=== PATIENT | male | born 1945 | race Two or more races ===

== ENCOUNTER 2024-07-04 02:40 | Emergency (ER) | payer OTHER, MEDICAID, SELFPAY ==
[2024-07-04 02:58] VITALS: BP 156/94; PULSE 116; RESP 17; TEMP 36.5; O2SAT 98
[2024-07-04 03:51] VITALS: PULSE 124; RESP 26; O2SAT 99; BMI 23.1
--- NOTE | 2024-07-04 03:54 | XR_ITS ---
Examination: AP chest single view TECHNIQUE: AP portable upright chest single view Exam date and time: July 04, 2024 0401 hours Comparison August 31, 2023 INDICATIONS: Shortness of breath today. FINDINGS: Moderate CHF Mild enlargement cardiac contour Prominent vascular congestion with perihilar basilar edema Cardiac leads satisfactory position Prominent osteopenia IMPRESSION: Moderate CHF
--- NOTE | 2024-07-04 03:54 | EKG_ITS ---
[facility] Test Date: 2024-07-04 Pat Name: JOHN COOPER Department: Room: - Gender: Male [employer] Presenter: : 1945 Requested By: Fransisco Rueda Order Number: [id number] Reading MD: Fransisco Rueda Measurements Intervals [place] Rate: 107 P: MN: QRS: 41 QRSD: 132 T: 79 QT: 361 QTc: 482 Interpretive Statements ATRIAL FLUTTER/TACHYCARDIA WITH RAPID VENTRICULAR RESPONSE WITH ABERRANT CONDUCTION OR VENTRICULAR PREMATURE COMPLEXES INTRAVENTRICULAR CONDUCTION DELAY [130+ ms QRS DURATION] Compared to ECG 10/19/2023 14:48:02 Ventricular premature complex(es) now present Aberrant conduction of supraventricular beat(s) now present Intraventricular conduction delay now present Sinus rhythm no longer present Left ventricular hypertrophy no longer present /store/S0/[id number]/ecg/[id number].pdf
[2024-07-04 03:58] VITALS: BP 135/92; PULSE 110; RESP 24; TEMP 36.9; O2SAT 99
--- NOTE | 2024-07-04 04:01 | PD.EDSOB ---
ED SOB =RME/HPI General Chief Complaint: Shortness of Breath/Dyspnea Stated Complaint: SOB Time Seen by Provider: 07/04/24 03:53 Arrival date/time: 07/04/24 02:40 RME / HPI RME / HPI Narrative: Dr. Rueda's Main ED Evaluation: Related Data Home Medications ?Medication ?Instructions ?Recorded ?Confirmed metformin 500 mg tablet 1,000 mg PO BID 01/22/20 10/22/23 aspirin 81 mg capsule 81 mg PO DAILY 10/22/23 10/22/23 atorvastatin 40 mg tablet 40 mg PO QPM 10/22/23 10/22/23 carvedilol 3.125 mg tablet 3.125 mg PO BID 10/22/23 10/22/23 dapagliflozin propanediol 10 mg 10 mg PO DAILY 10/22/23 10/22/23 tablet dapagliflozin propanediol 10 mg 10 mg PO QAM 10/22/23 10/22/23 tablet (Farxiga) empagliflozin 25 mg tablet 25 mg PO QAM 10/22/23 10/22/23 (Jardiance) ferrous sulfate 325 mg (65 mg 325 mg PO QDAY 10/22/23 10/22/23 iron) tablet (FeroSul) insulin glargine 100 unit/mL (3 30 unit subcut QPM 10/22/23 10/22/23 mL) subcutaneous pen (Basaglar KwikPen U-100 Insulin) sitagliptin phosphate 25 mg tablet 25 mg PO DAILY 10/22/23 10/22/23 (Januvia) spironolactone 25 mg tablet 12.5 mg PO DAILY 10/22/23 10/22/23 Allergies Allergy/AdvReac Type Severity Reaction Status Date / Time No Known Allergies Allergy Verified 07/04/24 03:58 Course Orders Category Date Time Status EKG (ED ONLY) *Do not use* NOW Care 07/04/24 03:54 Active Insert IV NOW Care 07/04/24 03:54 Active EKG (ED Only) Stat Exams 07/04/24 03:54 Ordered XR chest 1V portable Stat Exams 07/04/24 03:54 Ordered B-Type Natriuretic Peptide Stat Lab 07/04/24 03:54 Ordered Blood Culture (Lab) Stat Lab 07/04/24 03:54 Ordered CBC Stat Lab 07/04/24 03:54 Ordered Comprehensive Metabolic Panel Stat Lab 07/04/24 03:54 Ordered Creatine Kinase Stat Lab 07/04/24 03:54 Ordered Lactate (Lactic Acid) Stat Lab 07/04/24 03:54 Ordered PT [Prothrombin Time with INR] Stat Lab 07/04/24 03:55 Ordered Procalcitonin Stat Lab 07/04/24 03:54 Ordered Troponin I Stat Lab 07/04/24 03:54 Ordered Urinalysis Stat Lab 07/04/24 03:54 Ordered Urine Culture Stat Lab 07/04/24 03:54 Ordered Vital Signs Vital signs: Vital Signs Temperature 97.7 F 07/04/24 02:58 Pulse Rate 116 H 07/04/24 02:58 Respiratory Rate 17 07/04/24 02:58 Blood Pressure 156/94 H 07/04/24 02:58 Pulse Oximetry (%) 98 07/04/24 02:58 Oxygen Delivery Method Nasal Cannula 07/04/24 02:58 Oxygen Flow Rate 6 07/04/24 02:58 Shortness of Breath / Dyspnea MDM Narrative MDM Narrative:: Scribe Attestation: 07/04/24 Brittany Roland am scribing for and in the presence of Dr. Rueda. Provider Notation: Although this document has been carefully reviewed, there may still be some phonetic and other typographical errors. These errors are purely grammatical due to imperfections in the software program and should not be construed in any way to compromise the substance of the patient's medical care during this visit. Discharge Plan Prescriptions/Referrals Prescriptions/Med Rec: No Action metformin 500 mg Tablet 1,000 mg PO BID Hold Instructions: Resume on 10/25/23. No se mikee esta medicina salena Ramírez 10/25/2023. Rx Instructions: with meals atorvastatin 40 mg Tablet 40 mg PO QPM spironolactone 25 mg Tablet 12.5 mg PO DAILY carvedilol 3.125 mg Tablet 3.125 mg PO BID Rx Instructions: with food ferrous sulfate [FeroSul] 325 mg (65 mg iron) Tablet 325 mg PO QDAY Januvia 25 mg Tablet 25 mg PO DAILY insulin glargine [Basaglar KwikPen U-100 Insulin] 100 unit/mL (3 mL) Insulin Pen 30 unit SUBCUT QPM dapagliflozin propanediol 10 mg Tablet 10 mg PO DAILY dapagliflozin propanediol [Farxiga] 10 mg Tablet 10 mg PO QAM Jardiance 25 mg Tablet 25 mg PO QAM aspirin 81 mg Capsule 81 mg PO DAILY Referrals: Dionne Shah MD [Primary Care Provider] - In 1 week Patient/Caregiver Discharge Instructions Print Language: Pakistani
[2024-07-04 04:18] LABS: Lactate (Lactic Acid) 0.9 mMol/L (0.4-2.0)
[2024-07-04 04:20] LABS: Collection Type, Urine Clean Catch
[2024-07-04 04:22] LABS: Basophils % (Auto) 0 % (0-2.5); Eosinophils # (Auto) 0.2 Thou/mm3 (0.0-0.5); Eosinophils % (Auto) 2 % (0-10); Hemoglobin 10.7 g/dL (13.5-16.0); Immature Granulocytes % (Auto) 0 % (0-0); Immature Granulocytes Auto 0.05 Thou/mm3 (0.00-0.00); Lymphocytes # (Auto) 1.2 Thou/mm3 (1.0-4.8); Lymphocytes % (Auto) 9 % (10-50); Mean Corpuscular HGB Conc 34.5 g/dl (31.0-37.0); Mean Corpuscular Hemoglobin 31.8 pg (25.0-35.0); Mean Corpuscular Volume 92 fL (80-100); Monocytes % (Auto) 8 % (0-12); Neutrophils # (Auto) 10.2 Thou/mm3 (1.8-7.7); Neutrophils % (Auto) 81 % (37-80); Nucleated Red Blood Cell % 0 /100 WBC (0); Platelet Count 214 Thou/mm3 (140-440); RDW Standard Deviation 46.2 fL (35.1-43.9); Red Blood Count 3.36 Miln/mm3 (4.50-5.90); White Blood Count 12.6 Thou/mm3 (3.8-10.6)
[2024-07-04 04:26] LABS: Bilirubin,Urine Negative (Negative); Blood,Urine Negative (Negative); Clarity,Urine Clear (Clear/Hazy); Color,Urine Yellow (Lt Yel-Yel); Glucose, Urine 1+ (Negative); Hyaline Casts,Urine < 1 /hpf (0-1); Ketones,Urine Trace (Negative); Leukocyte Esterase,Urine Negative (Negative); Nitrite,Urine Negative (Negative); PH,Urine 5.5 (5.0-7.0); Protein,Urine Negative (Neg - Trace); RBC,Urine 1 /hpf (0-3); Squamous Epithelial Cell,Urine 2 /hpf (0-5); Urobilinogen,Urine Negative mg/dL (0.0-1.0); WBC,Urine 1 /hpf (0-5)
[2024-07-04 04:40] LABS: INR 1.1 (0.9-1.3); Prothrombin Time 12.3 Seconds (9.0-12.2)
[2024-07-04 04:53] LABS: Alanine Aminotransferase 28 U/L (10-49); Albumin, Serum 4.3 gm/dL (3.4-4.8); Albumin/Globulin Ratio 1.3 (1.2-2.2); Alkaline Phosphatase 113 U/L (46-116); Anion Gap 5 (7-16); Aspartate Amino Transferase 34 U/L (0-34); BUN/Creatinine Ratio 24 Ratio (12-20); Bilirubin,Total 0.5 mg/dL (0.3-1.2); Blood Urea Nitrogen 19 mg/dL (9-23); Calcium 9.3 mg/dL (8.3-10.6); Calcium (Corrected) 9.3 mg/dL (8.5-10.1); Carbon Dioxide 26.6 mMol/L (20.0-31.0); Chloride 100 mMol/L (98-107); Creatine Kinase 295 U/L (34-171); Creatinine (Component) 0.8 mg/dL (0.6-1.3); Estimated Creatinine Clearance 63.7 mL/min (>60); Globulin 3.4 gm/dL (2.3-3.5); Glucose 180 mg/dL (74-106); Osmolality,Calculated 271 (275-295); Potassium 3.8 mMol/L (3.4-5.1); Procalcitonin < 0.04 ng/ml (0.0-0.49); Sodium 132 mMol/L (136-145); Total Protein 7.7 gm/dL (5.7-8.2); Troponin I 0.021 ng/mL (0.0-0.045); eGFR > 60 See Note
--- NOTE | 2024-07-04 05:14 | PD.EDRME ---
Rapid Medical Screening Exam RME Arrival date/time: 07/04/24 02:40 Chief Complaint: Shortness of Breath/Dyspnea Time Seen by Provider: 07/04/24 03:53 Vital signs: Vital Signs Temperature 97.7 F 07/04/24 02:58 Pulse Rate 116 H 07/04/24 02:58 Respiratory Rate 17 07/04/24 02:58 Blood Pressure 156/94 H 07/04/24 02:58 Pulse Oximetry (%) 98 07/04/24 02:58 Oxygen Delivery Method Nasal Cannula 07/04/24 02:58 Oxygen Flow Rate 6 07/04/24 02:58 RME Narrative: 79yo male BIBA from home presents to the ED for a chief complaint of shortness of breath. Upon arrival, patient is tachycardic. EMS endorses associated sweating. Orders are placed.
[2024-07-04 05:19] LABS: B-Type Natriuretic Peptide 696 pg/mL (0-100)
[2024-07-04 05:22] VITALS: BP 135/92; PULSE 101; RESP 21; O2SAT 96
--- NOTE | 2024-07-04 05:56 | PC.NURSE ---
at the bedside at this time.
--- NOTE | 2024-07-04 05:58 | PD.EDSOB ---
ED SOB =RME/HPI General Chief Complaint: Shortness of Breath/Dyspnea Stated Complaint: SOB Time Seen by Provider: 07/04/24 03:53 Arrival date/time: 07/04/24 02:40 Limitations: no limitations RME / HPI RME / HPI Narrative: 79yo male VALERIA from home presents to the ED for a chief complaint of shortness of breath. Upon arrival, patient is tachycardic. EMS endorses associated sweating. Orders are placed. Patient states he called 911 due to LUQ abdominal pain onset [address] [facility] MAIN ED EVALUATION: 79 year old male with history of HFrEF 20% 08/2023, CAD, s/p placement of permanent pac[place] [address] Mathur, hypertension, diabetes presents to the ED brought in by ambulance for complaint of abdominal pain beginning at 10:00pm last night and worsening at 03:00 this morning. Described as aching in sensation that is located most to the left upper quadrant, rating as moderate. Additionally reports shortness of breath and cough beginning 2 days ago. Denies fevers, chills, chest pain, vomiting, diarrhea, or urinary symptoms. Related Data Home Medications ?Medication ?Instructions ?Recorded ?Confirmed metformin 500 mg tablet 1,000 mg PO BID 01/22/20 10/22/23 aspirin 81 mg capsule 81 mg PO DAILY 10/22/23 10/22/23 atorvastatin 40 mg tablet 40 mg PO QPM 10/22/23 10/22/23 carvedilol 3.125 mg tablet 3.125 mg PO BID 10/22/23 10/22/23 dapagliflozin propanediol 10 mg 10 mg PO DAILY 10/22/23 10/22/23 tablet dapagliflozin propanediol 10 mg 10 mg PO QAM 10/22/23 10/22/23 tablet (Farxiga) empagliflozin 25 mg tablet 25 mg PO QAM 10/22/23 10/22/23 (Jardiance) ferrous sulfate 325 mg (65 mg 325 mg PO QDAY 10/22/23 10/22/23 iron) tablet (FeroSul) insulin glargine 100 unit/mL (3 30 unit subcut QPM 10/22/23 10/22/23 mL) subcutaneous pen (Basaglar KwikPen U-100 Insulin) sitagliptin phosphate 25 mg tablet 25 mg PO DAILY 10/22/23 10/22/23 (Augelieshefali) spironolactone 25 mg tablet 12.5 mg PO DAILY 10/22/23 10/22/23 Previous Rx's ?Medication ?Instructions ?Recorded tramadol 50 mg tablet 50 mg PO BID PRN pain #7 tabs 07/04/24 Allergies Allergy/AdvReac Type Severity Reaction Status Date / Time No Known Allergies Allergy Verified 07/04/24 03:58 Review of Systems Review of Systems Systems Reviewed: All systems reviewed, normal except as documented Past Medical History Past Medical History CARDIAC: Positive Cardiac Disorders, Congestive Heart Failure and Hypertension ENDOCRINE: Positive Endocrine Disorders and Diabetes Mellitus Type 2 Family History FAMILY HISTORY: Positive Family Cardiac Disorders Surgical History SURGICAL: Negative Vasectomy Social History SMOKING STATUS: Never smoker 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 ED Exam General Limitations: Present no limitations General appearance: Present alert and other (Mild distress) Head Head exam: Present atraumatic, normocephalic and normal inspection Eye Eye exam: Present normal appearance, PERRL and EOMI ENT ENT exam: Present normal exam, normal oropharynx and mucous membranes moist Neck Neck exam: Present normal inspection, full ROM and trachea midline Chest Chest inspection: Present normal inspection and symmetric chest wall rise Respiratory Respiratory exam: Present normal lung sounds bilaterally Cardiovascular Cardiovascular exam: Present regular rate, normal rhythm and normal heart sounds Abdominal Exam Abdominal exam: Present soft, tenderness (Left upper quadrant tenderness on palpation) and normal bowel sounds; Absent distention Extremities Exam Extremities exam: Present normal inspection and full ROM Back Exam Back exam: Present normal inspection and full ROM Neurological Exam Neurological exam: Present alert, oriented X3 and CN II-XII intact Psychiatric Psychiatric exam: Present normal affect and normal mood Skin Skin exam: Present warm, dry, intact and normal color Course Course Course Narrative: chest xray ordered to help determine etiology of shortness of breath. Quality Measures none Orders Category Date Time Status CT Screening NOW Care 07/04/24 07:06 Active EKG (ED ONLY) *Do not use* NOW Care 07/04/24 03:54 Completed Insert IV NOW Care 07/04/24 03:[address] abdomen pelvis w con Stat Exams 07/04/24 07:06 Completed EKG (ED Only) Stat Exams 07/04/24 03:54 Draft XR chest 1V portable Stat Exams 07/04/24 03:54 Taken B-Type Natriuretic Peptide Stat Lab 07/04/24 04:05 Completed Blood Culture (Lab) Stat Lab 07/04/24 04:30 Received CBC Stat Lab 07/04/24 04:05 Completed Comprehensive Metabolic Panel Stat Lab 07/04/24 04:05 Completed Creatine Kinase Stat Lab 07/04/24 04:05 Completed Lactate (Lactic Acid) Stat Lab 07/04/24 04:05 Completed PT [Prothrombin Time with INR] Stat Lab 07/04/24 04:05 Completed Procalcitonin Stat Lab 07/04/24 04:05 Completed Troponin I Stat Lab 07/04/24 04:05 Completed Urinalysis Stat Lab 07/04/24 04:14 Completed Urine Culture Stat Lab 07/04/24 04:14 Received Reevaluation(s) Reevaluation #1: Patient remains clinically stable throughout the emergency department visit. We reviewed all the results, analysis, and treatment plans. Patient is amenable to discharge. Strict return precautions were outlined. Patient was discharged in stable condition. Time: 09:45 Vital Signs Vital signs: Vital Signs Temperature 97.7 F 07/04/24 02:58 Pulse Rate 116 H 07/04/24 02:58 Respiratory Rate 17 07/04/24 02:58 Blood Pressure 156/94 H 07/04/24 02:58 Pulse Oximetry (%) 98 07/04/24 02:58 Oxygen Delivery Method Nasal Cannula 07/04/24 02:58 Oxygen Flow Rate 6 07/04/24 02:58 Pulse ox is 98% on 6L nasal cannula which is adequate. Shortness of Breath / Dyspnea MDM Narrative MDM Narrative:: Kristien France am scribing for and in the presence of Dr. Mclaughlin. Patient data External records reviewed:: [facility] previous records (I reviewed H&P from 08/31/2023 through 09/03/2023 ) and EMS form Clinical information provided by:: patient and EMS Social determinants that could affect healthcare access:: none Patient has the following chronic illnesses:: CHF, CAD, s/p placement of permanent pacemaker [place] [address] Mathur, hypertension, type 2 diabetes How is presenting disease/condition affected by chronic disease/condition?: exacerbated by Evaluation data The following diagnostics were reviewed and interpreted by me:: lab results, radiology exam(s) and EKG tracing(s) (AFIB with controlled ventricular rate and occasional PVC's ) Lab and/or radiology exams considered but not ordered:: None Interpretation Summary: Ordering Physician: Fernando Mclaughlin MD Date of Service: 07/04/24 Procedure(s): CT abdomen pelvis w con Accession Number(s): [id number] cc: Fernando Mclaughlin MD; Josep Girard MD; Dionne Shah MD~ Examination: CT abdomen with intravenous contrast CT pelvis with intravenous contrast 2-D coronal reconstructions 2-D sagittal reconstructions Date and time of exam:July 04, 2024 at 0747 hours INDICATIONS: Onset left lower abdominal pain beginning last night. CTDI: vol (mGy) 6.78 DLP: (mGycm) 317 Technique: Multiple axial sections of the abdomen and pelvis have been obtained. 64 slice high-resolution scanner used. 3 mm axial sections have been obtained, post intravenous injection 60 cc [id number] 2-D sagittal, coronal reconstructions obtained. Low dose protocols were performed. One or more of the following dose reduction techniques were used; automated exposure control, adjustment of the mA and/or KV according to patient size, use of iterative reconstruction technique. Findings: Small pleural effusions Mild atelectasis at the lung bases Liver is irregular in contour with fatty infiltration No gallstones No pancreatic mass Spleen is not enlarged No adrenal mass Lateral left renal cyst 5.4 cm No hydronephrosis Aortic calcification no aneurysmal dilatation 12 mm fat-containing umbilical hernia No bowel obstruction No pericecal inflammatory change Colonic diverticulosis, no diverticulitis Urinary bladder intact Transverse prostate dimension 6.3 cm, suspicious for 14 mm left prostate nodule, axial image 181 Prominent osteopenia, grade 1 anterolisthesis L4 on L5 Advanced degenerative disc disease L5-S1 IMPRESSION: Primary hepatocellular disease versus cirrhosis Normal appendix No bowel obstruction Colonic diverticulosis, no diverticulitis Significant prostatomegaly, suspicious for 14 mm left prostate nodule, consider correlation with PSA and follow-up transrectal prostate sonography Dictated By: Josep Girard MD Signed By: <Electronically signed by Josep Girard MD in OV> 07/04/24 0920 Medications / Prescriptions Medications or Prescriptions considered but not ordered:: None Medication administrations:: See above Consultations Consultation(s) initiated? (list below): No Diagnosis Shortness of Breath Differential Diagnosis: acute exacerbation of chronic obstructive airways disease, congestive heart failure, community acquired pneumonia and other (Viral illness, bronchitis) Most likely diagnosis given after review of the tests above:: Abdominal pain Abnormal CT of the abdomen Admission Indicated Admission indicated?: not indicated Admission Request Was there a request for admission?: No Disposition Plan Disposition Plan: Discharge Discharge Attestation Discharge Attestation: The patient and all family members were given an opportunity to ask questions and understood the discharge instructions. Discharge instructions specifically effects, indications for sooner follow up or return to the emergency department, and the expected course of current diagnosis. Patient condition: Stable Discharge Plan Plan Patient Disposition: HOME (Self Care) Patient condition on transfer: Stable Prescriptions/Referrals Prescriptions/Med Rec: New tramadol 50 mg tablet 50 mg PO BID PRN (Reason: pain) Qty: 7 0RF No Action metformin 500 mg Tablet 1,000 mg PO BID Hold Instructions: Resume on 10/25/23. No se tome esta [place] Rx Instructions: with meals atorvastatin 40 mg Tablet 40 mg PO QPM spironolactone 25 mg Tablet 12.5 mg PO DAILY carvedilol 3.125 mg Tablet 3.125 mg PO BID Rx Instructions: with food ferrous sulfate [FeroSul] 325 mg (65 mg iron) Tablet 325 mg PO QDAY Januvia 25 mg Tablet 25 mg PO DAILY insulin glargine [Basaglar KwikPen U-100 Insulin] 100 unit/mL (3 mL) Insulin Pen 30 unit SUBCUT QPM dapagliflozin propanediol 10 mg Tablet 10 mg PO DAILY dapagliflozin propanediol [Farxiga] 10 mg Tablet 10 mg PO QAM Jardiance 25 mg Tablet 25 mg PO QAM aspirin 81 mg Capsule 81 mg PO DAILY Referrals: Dionne Shah MD [Primary Care Provider] - In 1 week Problem List Clinical Impression: Abdominal pain, Abnormal CT of the abdomen Patient/Caregiver Discharge Instructions Education Materials: Abdominal Pain Print Language: Vietnamese Stand Alone Forms: [employer] Award Info., Patient Portal Info Letter
--- NOTE | 2024-07-04 07:06 | XR_ITS ---
Examination: CT abdomen with intravenous contrast CT pelvis with intravenous contrast 2-D coronal reconstructions 2-D sagittal reconstructions Date and time of exam:July 04, 2024 at 0747 hours INDICATIONS: Onset left lower abdominal pain beginning last night. CTDI: vol (mGy) 6.78 DLP: (mGycm) 317 Technique: Multiple axial sections of the abdomen and pelvis have been obtained. 64 slice high-resolution scanner used. 3 mm axial sections have been obtained, post intravenous injection 60 cc Isovue-370 2-D sagittal, coronal reconstructions obtained. Low dose protocols were performed. One or more of the following dose reduction techniques were used; automated exposure control, adjustment of the mA and/or KV according to patient size, use of iterative reconstruction technique. Findings: Small pleural effusions Mild atelectasis at the lung bases Liver is irregular in contour with fatty infiltration No gallstones No pancreatic mass Spleen is not enlarged No adrenal mass Lateral left renal cyst 5.4 cm No hydronephrosis Aortic calcification no aneurysmal dilatation 12 mm fat-containing umbilical hernia No bowel obstruction No pericecal inflammatory change Colonic diverticulosis, no diverticulitis Urinary bladder intact Transverse prostate dimension 6.3 cm, suspicious for 14 mm left prostate nodule, axial image 181 Prominent osteopenia, grade 1 anterolisthesis L4 on L5 Advanced degenerative disc disease L5-S1 IMPRESSION: Primary hepatocellular disease versus cirrhosis Normal appendix No bowel obstruction Colonic diverticulosis, no diverticulitis Significant prostatomegaly, suspicious for 14 mm left prostate nodule, consider correlation with PSA and follow-up transrectal prostate sonography
[2024-07-04 07:14] VITALS: BP 129/84; PULSE 106; RESP 17; TEMP 37.2; O2SAT 98
[2024-07-04 10:36] VITALS: BP 106/56; PULSE 91; RESP 16; TEMP 36.8; O2SAT 96
== END 2024-07-04 10:41 | disposition home or self-care (01) ==
PROVIDERS: Emergency Medicine; Emergency Provider Emergency Medicine; PCP Internal Medicine
DX: K57.30 Diverticulosis of large intestine without perforation or abscess without bleeding (principal); I48.91 Unspecified atrial fibrillation; I49.3 Ventricular premature depolarization; N40.0 Benign prostatic hyperplasia without lower urinary tract symptoms; I11.0 Hypertensive heart disease with heart failure; I50.9 Heart failure, unspecified; I25.10 Atherosclerotic heart disease of native coronary artery without angina pectoris; Z95.0 Presence of cardiac pacemaker
CPT/HCPCS: 36415; 71045; 74177; 80053; 81001; 82550; 83605; 83880; 84145; 84484; 85025; 85610; 87040; 87086; 87186; 87400; 87811; 93005; 99285; A4649; Q9967

== ENCOUNTER 2024-07-11 14:26 | Inpatient (IN) | payer OTHER, MEDICAID, MEDICARE, SELFPAY ==
[2024-07-11] VITALS (9 sets, daily range): BP systolic 98–145; BP diastolic 63–83; PULSE 71–113; RESP 17–97; TEMP 36.6–37.1; O2SAT 94–97; BMI 23.1
--- NOTE | 2024-07-11 15:01 | EDNOTE_ITS ---
ED Abdominal Pain RME/HPI General Chief Complaint: Abdominal Pain Stated complaint: ABDOMINAL PAIN WITH SOB Time seen by provider: 07/11/24 14:37 Arrival date/time: 07/11/24 14:26 Limitations: no limitations RME / HPI RME / HPI narrative: 79 year old male with history of HFrEF 20% 08/2023, CAD, s/p placement of permanent pacemaker [place] [address] Mathur, hypertension, diabetes, anemia presents to the ED brought in by son for complaint of abdominal pain today. States pain began ~ 1 week ago and constant since. Described as aching in sensation that is located throughout but most to the left upper quadrant, rating 8/10. Additionally reports feeling short of breath. Mentioned he had not taken his diuretics for 3 days. Denies fevers, chills, chest pain, vomiting, diarrhea, or urinary symptoms. Related Data Home Medications ?Medication ?Instructions ?Recorded ?Confirmed metformin 500 mg tablet 1,000 mg PO BID 01/22/20 07/11/24 aspirin 81 mg capsule 81 mg PO DAILY 10/22/23 07/11/24 atorvastatin 40 mg tablet 40 mg PO QPM 10/22/23 07/11/24 carvedilol 3.125 mg tablet 3.125 mg PO BID 10/22/23 07/11/24 ferrous sulfate 325 mg (65 mg 325 mg PO QDAY 10/22/23 07/11/24 iron) tablet (FeroSul) spironolactone 25 mg tablet 12.5 mg PO DAILY 10/22/23 07/11/24 furosemide 40 mg tablet 40 mg PO QDAY 07/11/24 07/11/24 Previous Rx's ?Medication ?Instructions ?Recorded tramadol 50 mg tablet 50 mg PO BID PRN pain #7 tabs 07/04/24 Allergies Allergy/AdvReac Type Severity Reaction Status Date / Time No Known Allergies Allergy Verified 07/11/24 14:27 Review of Systems Review of Systems Systems Reviewed: All systems reviewed, normal except as documented Past Medical History Past Medical History CARDIAC: Positive Cardiac Disorders, Congestive Heart Failure and Hypertension ENDOCRINE: Positive Endocrine Disorders and Diabetes Mellitus Type 2 Family History FAMILY HISTORY: Positive Family Cardiac Disorders Surgical History SURGICAL: Negative Vasectomy Social History SMOKING STATUS: Never smoker 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 ED Exam General Limitations: Present no limitations General appearance: Present alert and in no apparent distress Head Head exam: Present atraumatic and normocephalic Eye Eye exam: Present normal appearance, PERRL and EOMI ENT ENT exam: Present normal exam, normal oropharynx and mucous membranes moist Neck Neck exam: Present normal inspection, full ROM and trachea midline Chest Chest inspection: Present normal inspection and symmetric chest wall rise Respiratory Respiratory exam: Present normal lung sounds bilaterally Cardiovascular Cardiovascular exam: Present regular rate, normal rhythm and normal heart sounds Abdominal Exam Abdominal exam: Present soft, distention (Gaseous ) and normal bowel sounds Extremities Exam Extremities exam: Present normal inspection and full ROM Back Exam Back exam: Present normal inspection and full ROM Neurological Exam Neurological exam: Present alert, oriented X3 and CN II-XII intact Psychiatric Psychiatric exam: Present normal affect and normal mood Skin Skin exam: Present warm, dry, intact and normal color Course Quality Measures none Orders Category Date Time Status Bedside COVID-19 Antigen Test NOW Care 07/11/24 16:41 Active COVID-19 Screening Questionnaire NOW Care 07/11/24 16:35 Active Decision to Admit X1 Care 07/11/24 16:35 Completed EKG (ED ONLY) *Do not use* NOW Care 07/11/24 15:22 Completed Insert IV STAT Care 07/11/24 15:22 Completed EKG (ED Only) Stat Exams 07/11/24 15:22 Draft XR abdomen series w chest 1V Stat Exams 07/11/24 15:24 Completed BNP [B-Type Natriuretic Peptide] Stat Lab 07/11/24 15:43 Completed CBC Stat Lab 07/11/24 15:43 Completed Comprehensive Metabolic Panel Stat Lab 07/11/24 15:43 Completed Lipase Stat Lab 07/11/24 15:43 Completed Magnesium Stat Lab 07/11/24 15:43 Completed Troponin I Stat Lab 07/11/24 15:43 Completed Urinalysis Stat Lab 07/11/24 17:20 Completed Furosemide Inj [Lasix Inj] Med 07/11/24 15:53 Discontinued 80 mg IVP X1 ONE Morphine Inj Med 07/11/24 15:24 Discontinued 5 mg IVP X1 ONE Reevaluation(s) Time: 16:20 Vital Signs Vital signs: Vital Signs Temperature 98.7 F 07/11/24 15:08 Pulse Rate 113 H 07/11/24 15:08 Respiratory Rate 26 H 07/11/24 15:08 Blood Pressure 145/82 H 07/11/24 15:08 Pulse Oximetry (%) 94 L 07/11/24 15:08 Oxygen Delivery Method Room Air 07/11/24 15:08 Pulse ox is 94% on room air which is adequate. Abdominal Pain MDM MDM Narrative MDM Narrative:: Kristine France am scribing for and in the presence of Dr. Mclaughlin. Patient data [place] [facility] [place]I reviewed ED visit on 07/04/2024) Clinical information provided by:: patient Social determinants that could affect healthcare access:: none Patient has the following chronic illnesses:: HFrEF 20% 08/2023, CAD, s/p placement of permanent pacemaker [place] [address] Mathur, hypertension, diabetes, anemia How is presenting disease/condition affected by chronic disease/condition?: exacerbated by Evaluation data The following diagnostics were reviewed and interpreted by me:: lab results, radiology exam(s) and EKG tracing(s) (sinus tachycardia, rate 106, LBBB, no further information can be extracted from ekg ) Lab and/or radiology exams considered but not ordered:: None Interpretation Summary: Ordering Physician: Fernando Mclaughlin MD Date of Service: 07/11/24 Procedure(s): XR abdomen series w chest 1V Accession Number(s): [id number] cc: Fernando Mclaughlin MD; Josep Girard MD~ Examination: AP chest single view Technique: AP portable upright chest single view Exam date and time: July 11, 2024 1533 hrs. Indications: Abdominal pain chest pain today Findings: Mild prominence left ventricle Cardiac leads satisfactory position Significant vascular congestion with early septal edema at the lung bases Prominent osteopenia Impression: Early CHF Dictated By: Josep Girard MD Signed By: <Electronically signed by Josep Girard MD in OV> 07/11/24 1614 Medications / Prescriptions Medications or Prescriptions considered but not ordered:: None Medication administrations:: Medication Administration History Acetaminophen (Acetaminophen 325 Mg Tablet) 650 mg PO Q6H PRN PRN Reason: Fever >100.3 or pain Stop: 08/10/24 17:54 Albuterol/Ipratropium (Albuterol/Ipratropium (Duoneb) Rt Shanta 3 Ml Nebu) 3 ml INH Q6HRRT PRN PRN Reason: SHORTNESS OF BREATH Stop: 08/10/24 18:59 Aspirin (Aspirin Ec 81 Mg Tabec) 81 mg PO DAILY [facility] Stop: 08/11/24 08:59 Atorvastatin Calcium (Atorvastatin Calcium 20 Mg Tablet) 40 mg PO QPM [facility] Stop: 08/10/24 20:59 Last Admin: 07/11/24 21:09 Dose: 40 mg Documented By: JOSELITO Carvedilol (Carvedilol 3.125 Mg Tablet) 3.125 mg PO BID [facility]AK Stop: 08/10/24 20:59 Last Admin: 07/11/24 21:10 Dose: Not Given Documented By: JOSELITO Non-Admin Reason: Vital Signs Dextrose (Dextrose 50%-Water Inj 50 Ml Syringe) 25 ml IV Q15MIN PRN PRN Reason: BG 50-70 responsive npo pt Stop: 08/10/24 18:38 Dextrose (Dextrose 50%-Water Inj 50 Ml Syringe) 50 ml IV Q15MIN PRN PRN Reason: BG <50 OR BG <70 & pt unresponsive Stop: 08/10/24 18:38 Ferrous Sulfate (Ferrous Sulf 325 Mg Tablet) 325 mg PO QDAY [facility] Stop: 08/11/24 08:59 Furosemide (Furosemide Inj 10 Mg/Ml Vial 2 Ml) 40 mg IVP QDAY [facility] Stop: 08/11/24 08:59 Glucagon (Glucagon Inj 1 Mg Vial) 1 mg IM Q15MIN PRN PRN Reason: BG <70, and no IV access Ciprofloxacin/Dextrose (Cipro Ivpb) 400 mg in 200 mls @ 200 mls/hr IV Q12HR [facility] Stop: 07/18/24 18:14 Last Admin: 07/11/24 18:39 Dose: 200 mls/hr Documented By: DO Insulin Human Lispro (Insulin Lispro (Admelog) 1 Unit/0.01 Ml Unit) 0 unit SC AC [facility]; Protocol Stop: 08/11/24 07:29 Metronidazole (Metronidazole 250 Mg Tablet) 500 mg PO TID [facility] Stop: 07/18/24 21:59 Last Admin: 07/12/24 05:27 Dose: 500 mg Documented By: Admin: 07/11/24 21:09 Dose: 500 mg Documented By: JOSELITO Ondansetron HCl (Ondansetron Inj 2 Mg/Ml Inj 2 Ml) 4 mg IV Q6H PRN; Protocol PRN Reason: NAUSEA OR VOMITING Stop: 08/10/24 17:54 Spironolactone (Spironolactone 25 Mg Tablet) 12.5 mg PO DAILY [facility] Stop: 08/11/24 08:59 Tramadol HCl (Tramadol Hcl 50 Mg Tablet) 50 mg PO BID PRN PRN Reason: pain Stop: 07/16/24 18:20 Discontinued Medications Furosemide (Furosemide Inj 10 Mg/Ml 4ml Vial) 80 mg IVP X1 ONE Stop: 07/11/24 15:54 Last Admin: 07/11/24 16:49 Dose: 80 mg Documented By: DO Furosemide (Furosemide Inj 10 Mg/Ml Vial 2 Ml) 40 mg IVP QDAY [facility] Stop: 08/11/24 08:59 Magnesium Sulfate (Magnesium Sulfate Ivpb) 2 gm in 50 mls @ 25 mls/hr IV X1 ONE Stop: 07/11/24 20:02 Last Admin: 07/11/24 19:18 Dose: 25 mls/hr Documented By: KD Ciprofloxacin/Dextrose (Cipro Ivpb) 400 mg in 200 mls @ 200 mls/hr IV Q12HR [facility] Stop: 07/18/24 18:09 Last Admin: 07/11/24 18:23 Dose: Not Given Documented By: DO Non-Admin Reason: Duplicate Medication on eMAR Morphine Sulfate (Morphine Sulf Inj 10 Mg/Ml Vial) 5 mg IVP X1 ONE Stop: 07/11/24 15:25 Last Admin: 07/11/24 15:48 Dose: 5 mg Documented By: DO See above Consultations Consultation(s) initiated? (list below): Yes Consultation #1 (Physician, Specialty, Details): I spoke with the resident working with Dr. Kaur regarding admission. Discussed patients PMHx, HPI, ED course, exam findings, labs, and radiology results. State they will evaluate patient in the ED. Time: 16:28 Diagnosis Differential diagnosis abdominal pain: abdominal pain, calculus of kidney, constipation and other (CHF exacerbation, pneumonia, gastritis ) Most likely diagnosis given after review of the tests above:: Hyponatremia Fluid overload Admission Indicated Admission indicated?: indicated Admission Request Was there a request for admission?: Yes Admission Attestation Admission request attestation: Discussed case with [] from Hospitalist service regarding admission. Discussed patients ED course, exam findings, labs, and radiology results. The Hospitalist [agrees,declines] to accept the patient for admission. Disposition Plan Disposition Plan: Admit Discharge Plan Plan Patient Disposition: Admit Acute Care w/in Hospital Patient condition on transfer: Stable Problem List Clinical Impression: CHF (congestive heart failure), Acute hyponatremia, Abdominal bloating
--- NOTE | 2024-07-11 15:22 | EKG_ITS ---
[facility] Test Date: 2024-07-11 Pat Name: JOHN COOPER Department: Room: - Gender: Male Cpa Tax: : 1945 Requested By: Fernando Mclaughlin Order Number: [id number] Reading MD: Fernando Mclaughlin Measurements Intervals [place] Rate: 106 P: 53 CO: 162 QRS: 14 QRSD: 142 T: 124 QT: 371 QTc: 494 Interpretive Statements SINUS TACHYCARDIA LEFT BUNDLE BRANCH BLOCK [120+ ms QRS DURATION, 80+ ms Q/S IN V1/V2, 85+ ms R IN I/aVL/V5/V6] Compared to ECG 07/04/2024 04:23:44 Left bundle-branch block now present Atrial flutter no longer present Ventricular premature complex(es) no longer present Aberrant conduction of supraventricular beat(s) no longer present Intraventricular conduction delay no longer present /store/S0/[id number]/ecg/[id number].pdf
--- NOTE | 2024-07-11 15:24 | XR_ITS ---
Examination: AP chest single view Technique: AP portable upright chest single view Exam date and time: July 11, 2024 1533 hrs. Indications: Abdominal pain chest pain today Findings: Mild prominence left ventricle Cardiac leads satisfactory position Significant vascular congestion with early septal edema at the lung bases Prominent osteopenia Impression: Early CHF
[2024-07-11 15:48] LABS: Basophils % (Auto) 0 % (0-2.5); Eosinophils % (Auto) 0 % (0-10); Hemoglobin 10.2 g/dL (13.5-16.0); Immature Granulocytes % (Auto) 0 % (0-0); Immature Granulocytes Auto 0.02 Thou/mm3 (0.00-0.00); Lymphocytes # (Auto) 0.6 Thou/mm3 (1.0-4.8); Lymphocytes % (Auto) 7 % (10-50); Mean Corpuscular HGB Conc 35.2 g/dl (31.0-37.0); Mean Corpuscular Hemoglobin 31.2 pg (25.0-35.0); Mean Corpuscular Volume 89 fL (80-100); Monocytes # (Auto) 0.4 Thou/mm3 (0.0-0.8); Monocytes % (Auto) 5 % (0-12); Neutrophils # (Auto) 7.1 Thou/mm3 (1.8-7.7); Neutrophils % (Auto) 88 % (37-80); Nucleated Red Blood Cell % 0 /100 WBC (0); Platelet Count 248 Thou/mm3 (140-440); RDW Standard Deviation 42.5 fL (35.1-43.9); Red Blood Count 3.27 Miln/mm3 (4.50-5.90); White Blood Count 8.1 Thou/mm3 (3.8-10.6)
[2024-07-11] MEDS: MORPHINE SULF INJ 10 MG/ML VIAL 5 MG IVP (15:48)
[2024-07-11 16:10] LABS: Alanine Aminotransferase 62 U/L (10-49); Albumin, Serum 4.4 gm/dL (3.4-4.8); Albumin/Globulin Ratio 1.4 (1.2-2.2); Alkaline Phosphatase 164 U/L (46-116); Anion Gap 9 (7-16); Aspartate Amino Transferase 89 U/L (0-34); BUN/Creatinine Ratio 17 Ratio (12-20); Bilirubin,Total 0.7 mg/dL (0.3-1.2); Blood Urea Nitrogen 12 mg/dL (9-23); Carbon Dioxide 23.1 mMol/L (20.0-31.0); Chloride 90 mMol/L (98-107); Creatinine (Component) 0.7 mg/dL (0.6-1.3); Estimated Creatinine Clearance 72.8 mL/min (>60); Globulin 3.1 gm/dL (2.3-3.5); Glucose 242 mg/dL (74-106); Lipase 33 U/L (12-53); Magnesium 1.5 mg/dL (1.6-2.6); Osmolality,Calculated 253 (275-295); Potassium 4.5 mMol/L (3.4-5.1); Sodium 122 mMol/L (136-145); Total Protein 7.5 gm/dL (5.7-8.2); eGFR > 60 See Note
[2024-07-11 16:39] LABS: Troponin I < 0.020 ng/mL (0.0-0.045)
[2024-07-11 16:47] LABS: B-Type Natriuretic Peptide 1403 pg/mL (0-100)
[2024-07-11] MEDS: FUROSEMIDE INJ 10 MG/ML 4ML VIAL 80 MG IVP (16:49)
[2024-07-11 17:41] LABS: Collection Type, Urine Clean Catch
[2024-07-11 17:46] LABS: Bilirubin,Urine Negative (Negative); Blood,Urine Negative (Negative); Clarity,Urine Clear (Clear/Hazy); Color,Urine Yellow (Lt Yel-Yel); Glucose, Urine 4+ (Negative); Hyaline Casts,Urine < 1 /hpf (0-1); Ketones,Urine 2+ (Negative); Leukocyte Esterase,Urine Negative (Negative); Nitrite,Urine Negative (Negative); Protein,Urine Trace (Neg - Trace); RBC,Urine 1 /hpf (0-3); Specific Gravity,Urine 1.011 (1.001-1.035); Squamous Epithelial Cell,Urine 1 /hpf (0-5); Urobilinogen,Urine Negative mg/dL (0.0-1.0); WBC,Urine 1 /hpf (0-5)
--- NOTE | 2024-07-11 18:00 | ECHO_ITS ---
Transthoracic Echo Report Ht (in): 64 Wt (lb): 135 Exam Location: Portable Status: Emergency Gate Shear Operator: Blanche Sevilla Indications: Procedure Performed: BP: 103 / 62 HR: 96 Technical Quality: Fair MEASUREMENTS (Male / Female) Normal Values 2D ECHO LV Diastolic Diameter PLAX 6.4 cm 4.2 - 5.9 / 3.9 - 5.3 cm LV Systolic Diameter PLAX 5.7 cm IVS Diastolic Thickness 1.0 cm 0.6 - 1.0 / 0.6 - 0.9 cm LVPW Diastolic Thickness 1.1 cm 0.6 - 1.0 / 0.6 - 0.9 cm LV Relative Wall Thickness 0.3 LVOT Diameter 2.6 cm LA Volume Index 51.3 cm?/m? 16 - 28 cm?/m? Ascending Aorta Diameter 3.0 cm M-MODE Aortic Root Diameter MM 3.1 cm LA Systolic Diameter MM 4.6 cm LA Ao Ratio MM 1.5 MV E Point Septal Separation 2.7 cm AV Cusp Separation MM 1.6 cm DOPPLER AV Peak Velocity 155.0 cm/s AV Peak Gradient 9.6 mmHg AV Mean Gradient 5.0 mmHg AV Velocity Time Integral 27.8 cm AI Peak Velocity 380.0 cm/s AI Peak Gradient 57.8 mmHg AI Pressure Half Time 309.5 ms LVOT Peak Velocity 103.0 cm/s LVOT Peak Gradient 4.2 mmHg LVOT Velocity Time Integral 18.3 cm LVOT Cardiac Index 5588.4 cm?/min?m? AV Area Cont Eq vti 3.5 cm? AV Area Cont Eq pk 3.5 cm? MV Peak Velocity 113.0 cm/s MV Peak Gradient 5.1 mmHg MV Mean Velocity 72.1 cm/s MV Mean Gradient 2.0 mmHg MV Area PHT 5.0 cm? MR Peak Velocity 437.0 cm/s MR Peak Gradient 76.4 mmHg Mitral E Point Velocity 93.1 cm/s Mitral A Point Velocity 66.5 cm/s Mitral E to A Ratio 1.4 LV E' Lateral Velocity 8.3 cm/s Mitral E to LV E' Lateral Ratio 11.3 LV E' Septal Velocity 4.7 cm/s Mitral E to LV E' Septal Ratio 19.9 TR Peak Velocity 225.0 cm/s TR Peak Gradient 20.3 mmHg FINDINGS Left Ventricle Dilated left ventricle. Severe systolic dysfunction. Akinesis anteiror septal wall. Severe hypokinei ss lateral wallThe ejection fraction is visually estimated at 20-25%. Right Ventricle The right ventricle is normal in size and systolic function. The estimated right ventricular systoli c pressure, 30mmHg. RAP10. Pacing wire present. Left Atrium The left atrium is moderately dilated. Right Atrium The right atrium is normal by two-dimensional imaging, color flow and Doppler imaging with no struct ural abnormalities, no thrombus formation present. Atrial Septum The interatrial septum appears normal with no evidence of a shunt. Aorta The aorta is normal by two-dimensional, color flow and Doppler interrogation. Mitral Valve The mitral valve is normal by two-dimensional, color flow and Doppler interrogation. There is modera te mitral valve regurgitation. Aortic Valve The aortic valve is trileaflet. Mild sclerosis without stenosis. There is moderate aortic valve regu rgitation. Tricuspid Valve The tricuspid valve is normal by two-dimensional, color flow and Doppler interrogation. There is mil d tricuspid valve regurgitation. Pulmonic Valve There is no significant pulmonic valve regurgitation. Vessels The pulmonary artery appears normal. The inferior vena cava pulmonary and hepatic veins appear dilat ed. Pericardium The pericardium is normal by two-dimensional imaging. There is no significant pericardial effusion. CONCLUSIONS Dilated LV. Akinesis anterior septal wall. Severe hypokinesis lateral wall. Estimated EF 20-25% Normal RV size and function. Pacing wire present. Moderate LA dilation. Mild AV sclerosis without stenosis. Moderate MR, AI. Mild TR. IVC dilated. Grayson Flores (Electronically Signed) Final Date: 14 July 2024 12:01
--- NOTE | 2024-07-11 18:07 | XR_ITS ---
Examination: CT abdomen and pelvis without contrast. Coronal 3-D reconstructions. Sagittal 2-D reconstructions. Date and time of exam:July 11, 2024 1849 hrs. Comparison July 04, 2024 Indications: Left lower abdominal pain beginning one week ago CTDI: vol (mGy): 6.16 DLP: (mGycm): 368 Technique: Axial images of the abdomen have been obtained, 3 mm slice thickness Intravenous contrast material has not been administered. Low dose protocols were performed. One or more of the following dose reduction techniques were used; automated exposure control, adjustment of the mA and/or KV according to patient size, use of iterative reconstruction technique. Findings: Septal edema at the lung bases, mild to moderate bilateral pleural effusions, enlarged cardiac contour Liver irregular in contour No gallstones Lateral 6 cm left renal cyst No hydronephrosis or renal calculi Abdominal aortic calcification no aneurysmal dilatation 12 mm fat-containing umbilical hernia Normal appendix Colonic diverticulosis, no diverticulitis Distended urinary bladder secondary to prominent prostatomegaly, transverse dimension 6.3 cm Prominent osteopenia with advanced degenerative disc disease L5-S1 Impression: Heart failure pattern, consider repeat PA lateral chest follow-up Cirrhosis versus primary hepatocellular disease Normal appendix Colonic diverticulosis, no diverticulitis Distended urinary bladder, which may be secondary to the patient's significant prostatomegaly
--- NOTE | 2024-07-11 18:15 | PC.NURSE ---
pt states that he is feeling better at this time. per son pt has been using urinal and he just dumped out urinal in the restroom prior to me walking in. estimated amount 400ml per son
--- NOTE | 2024-07-11 18:34 | PC.NURSE ---
urinal emptied at 425ml at this time
[2024-07-11] MEDS: CIPROFLOXACIN/D5w 400 MG IVPB 400 MG/200 ML BAG 200 MG IV (18:39)
--- NOTE | 2024-07-11 18:45 | ESHP_ITS ---
Documentation for date of: 07/11/24 [facility] History of Present Illness Chief complaint: SOB, stomach pain History of present illness: Zach Garcia is 79 yr male with PMH of HFrEF 20%, CAD s/p stent in October 2023, insulin-dependent type 2 diabetes who presented to ED today due to worsening abdominal pain and shortness of breath. Patient's son was at bedside who provided history. Patient stated that since past week abdominal pain started in left lower quadrant and a dull achy pattern that worsened the past few days. He had taken tramadol which temporarily relieved the pain however would return intermittently. Patient endorses constipation for the past 2 to 3 days as well but had bowel movement today that was loose and yellow in discoloration, no blood. Due to the pain patient had difficulty catching his breath. He denies any nausea, vomiting, fever, chills, chest pain. However coughing has worsened as well and patient states that shortness of breath worsens when doing daily activities and walking short distances. No lower extremity swelling. Endorses orthopnea with the need of sleeping at elevated ankle and multiple pillows. He has missed taking Lasix for pass 3 days. In ED,Vitals significant for slightly elevated blood pressure 145/82 however improving, pulse 85, respiratory rate 18, saturating 94% on room air, afebrile. Labs reveal anemia 10.2, hyponatremia 122, potassium 4.5, creatinine 0.7, glucose 242, osmolality 253, hypomag 1.5, mild transaminitis, bilirubin 0.7, BNP 1403. Diagnostic imaging: EKG negative for any acute ischemic changes, compared to last EKG admission patient is no longer in A-fib and normal sinus rhythm. CT abdomen pelvis mild bilateral pleural effusions, left renal cyst 6 cm, no hydronephrosis, diverticulosis, no diverticulitis, distended urinary bladder, prostatomegaly. Patient admitted for CHF exacerbation and management of left lower quadrant abdominal pain. PMH: as noted above PSH: none FamHx: HTN, DM Social: no smoking or drinking, lives at home with family. 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 Review of Systems Constitutional Constitutional: Reports system reviewed and no additional complaints, except as documented Exam Vital Signs Temp Pulse Resp BP Pulse Ox O2 Del Method 98.7 F 97 20 124/83 94 L Room Air 07/11/24 15:08 07/11/24 17:02 07/11/24 17:02 07/11/24 17:02 07/11/24 17:02 07/11/24 17:02 Narrative Exam General: Alert and oriented x3. No acute distress, cooperative HEENT: Atraumatic, normocephalic. No JVD noted. Mucosa moist. Cardiovascular: Normal S1 and S2. Regular rate and rhythm. No pitting edema Respiratory: diffuse b/L crackles on expiration, frequent productive cough Abdomen: Soft, LLQ pain to palpation, guarding, no ridgidity, not distended, normal bowel sounds. Skin: Warm to touch, dry, no rashes noted Musculoskeletal: No gross injuries. Able to move all 4 extremities. Neuro: Alert and oriented x3. No focal neuro deficits. Psych: Normal affect and mood Results: Labs 07/12/24 04:37 07/12/24 04:37 Labs: Short CBC 07/11/24 Range/Units 15:43 WBC 8.1 (3.8-10.6) Thou/mm3 Hgb 10.2 L (13.5-16.0) g/dL Hct 29.0 L (41.0-53.0) % Plt Count 248 D (140-440) Thou/mm3 BMP 07/11/24 15:43 Sodium 122 L Potassium 4.5 Chloride 90 L Carbon Dioxide 23.1 BUN 12 Creatinine 0.7 Glucose 242 H Calcium 9.0 Cardiac Enzymes 07/11/24 Range/Units 15:43 Troponin I < 0.020 (0.0-0.045) ng/mL Liver Function 07/11/24 Range/Units 15:43 Total Bilirubin 0.7 (0.3-1.2) mg/dL AST 89 H (0-34) U/L ALT 62 H (10-49) U/L Alkaline Phosphatase 164 H (46-116) U/L Albumin 4.4 (3.4-4.8) gm/dL Urine 07/11/24 Range/Units 17:20 Urine Color Yellow (Lt Yel-Yel) Urine Clarity Clear (Clear/Hazy) Urine pH 6.0 (5.0-7.0) Ur Specific [place] 1.011 (1.001-1.035) Urine Protein Trace (Neg - Trace) Urine Glucose (UA) 4+ A (Negative) Quality Measures Quality Measures none Advance care planning discussed with:: child Medications Home Medications and Allergies Home Medications ?Medication ?Instructions ?Recorded ?Confirmed ?Type metformin 500 mg tablet 1,000 mg PO BID 01/22/20 07/11/24 History aspirin 81 mg capsule 81 mg PO DAILY 10/22/23 07/11/24 History atorvastatin 40 mg tablet 40 mg PO QPM 10/22/23 07/11/24 History carvedilol 3.125 mg tablet 3.125 mg PO BID 10/22/23 07/11/24 History ferrous sulfate 325 mg (65 mg 325 mg PO QDAY 10/22/23 07/11/24 History iron) tablet (FeroSul) spironolactone 25 mg tablet 12.5 mg PO DAILY 10/22/23 07/11/24 History furosemide 40 mg tablet 40 mg PO QDAY 07/11/24 07/11/24 History Allergies Allergy/AdvReac Type Severity Reaction Status Date / Time No Known Allergies Allergy Verified 07/11/24 14:27 Visit Medications Acetaminophen (Acetaminophen 325 Mg Tablet) 650 mg PO Q6H PRN PRN Reason: Fever >100.3 or pain Stop: 08/10/24 17:54 Albuterol/Ipratropium (Albuterol/Ipratropium (Duoneb) Rt Shanta 3 Ml Nebu) 3 ml INH Q6HRRT PRN PRN Reason: SHORTNESS OF BREATH Stop: 08/10/24 18:59 Aspirin (Aspirin Ec 81 Mg Tabec) 81 mg PO DAILY PALAK Stop: 08/11/24 08:59 Atorvastatin Calcium (Atorvastatin Calcium 20 Mg Tablet) 40 mg PO QPM PALAK Stop: 08/10/24 20:59 Carvedilol (Carvedilol 3.125 Mg Tablet) 3.125 mg PO BID PALAK Stop: 08/10/24 20:59 Dextrose (Dextrose 50%-Water Inj 50 Ml Syringe) 25 ml IV Q15MIN PRN PRN Reason: BG 50-70 responsive npo pt Stop: 08/10/24 18:38 Dextrose (Dextrose 50%-Water Inj 50 Ml Syringe) 50 ml IV Q15MIN PRN PRN Reason: BG <50 OR BG <70 & pt unresponsive Stop: 08/10/24 18:38 Ferrous Sulfate (Ferrous Sulf 325 Mg Tablet) 325 mg PO QDAY [facility] Stop: 08/11/24 08:59 Furosemide (Furosemide Inj 10 Mg/Ml Vial 2 Ml) 40 mg IVP QDAY [facility] Stop: 08/11/24 08:59 Glucagon (Glucagon Inj 1 Mg Vial) 1 mg IM Q15MIN PRN PRN Reason: BG <70, and no IV access Magnesium Sulfate (Magnesium Sulfate Ivpb) 2 gm in 50 mls @ 25 mls/hr IV X1 ONE Stop: 07/11/24 20:02 Ciprofloxacin/Dextrose (Cipro Ivpb) 400 mg in 200 mls @ 200 mls/hr IV Q12HR PALAK Stop: 07/18/24 18:14 Last Admin: 07/11/24 18:39 Dose: 200 mls/hr Insulin Human Lispro (Insulin Lispro (Admelog) 1 Unit/0.01 Ml Unit) 0 unit SC AC [facility]; Protocol Stop: 08/11/24 07:29 Metronidazole (Metronidazole 250 Mg Tablet) 500 mg PO TID [facility] Stop: 07/18/24 21:59 Ondansetron HCl (Ondansetron Inj 2 Mg/Ml Inj 2 Ml) 4 mg IV Q6H PRN; Protocol PRN Reason: NAUSEA OR VOMITING Stop: 08/10/24 17:54 Spironolactone (Spironolactone 25 Mg Tablet) 12.5 mg PO DAILY [facility] Stop: 08/11/24 08:59 Tramadol HCl (Tramadol Hcl 50 Mg Tablet) 50 mg PO BID PRN PRN Reason: pain Stop: 07/16/24 18:20 Discontinued Medications Furosemide (Furosemide Inj 10 Mg/Ml 4ml Vial) 80 mg IVP X1 ONE Stop: 07/11/24 15:54 Last Admin: 07/11/24 16:49 Dose: 80 mg Furosemide (Furosemide Inj 10 Mg/Ml Vial 2 Ml) 40 mg IVP QDAY [facility] Stop: 08/11/24 08:59 Ciprofloxacin/Dextrose (Cipro Ivpb) 400 mg in 200 mls @ 200 mls/hr IV Q12HR [facility] Stop: 07/18/24 18:09 Last Admin: 07/11/24 18:23 Dose: Not Given Morphine Sulfate (Morphine Sulf Inj 10 Mg/Ml Vial) 5 mg IVP X1 ONE Stop: 07/11/24 15:25 Last Admin: 07/11/24 15:48 Dose: 5 mg Assessment & Plan Plan Zach Garcia is 79 yr male with PMH of HFrEF 20%, CAD s/p stent in October 2023, insulin-dependent type 2 diabetes who presented to ED today due to worsening abdominal pain and shortness of breath. Patient's son was at bedside who provided history. Patient stated that since past week abdominal pain started in left lower quadrant and a dull achy pattern that worsened the past few days. He had taken tramadol which temporarily relieved the pain however would return intermittently. Patient endorses constipation for the past 2 to 3 days as well but had bowel movement today that was loose and yellow in discoloration, no blood. Also complains of productive cough and difficulty walking short distances and daily activities. Endorses orthopnea.. Patient admitted for CHF exacerbation management of left lower quadrant abdominal pain. #Acute on chronic decompensated heart failure #History of HFrEF, 20% S/p ICD placement in Aug 2023. Patient endorses orthopnea, shortness of breath, cough. Is currently on goal-directed medical therapy including Coreg 3.125 mg p.o. twice daily, furosemide 40 mg p.o. daily, spironolactone 12.5 mg p.o. daily., Entresto 24 mg daily, Farxiga 10 mg daily. On physical exam no JVD, no lower extremity swelling, however diffuse bilateral crackles auscultated. Labs significant for elevated BNP 1403, hypervolemia indicated by low sodium and low osmolality. Chest x-ray and CT A/P showing significant vascular congestion with early septal edema at the lung bases. Most recent echo from August 2023 showed ejection fraction of 20%. ?Start IV Lasix 40 mg daily ?Albuterol/ipratropium every 6 hours as needed for cough ? Coreg 3.125 mg p.o. twice daily ?Spironolactone 12.5 mg daily -echo pending -daily weights -strict INOs -low sodium diet -restrict fluid to 1500mL -keep potassium >4, mag >2 -daily CBC, CMP #Hypoosmolar hyponatremia Patient remains asymptomatic. Likely due to side effect diuretics vs volume overload state vs decreased oral intake vs GI losses vs third spacing fluid. On admission, sodium 122. Osmolality 253. -Anticipate improvement with diuresis and fluid restriction -Continue monitoring daily #Hypomagnesemia Most likely due to dilutional state and volume overload status. On admission magnesium 1.5 ?Repleted with 2 g ? Continue to monitor daily #Left lower quadrant abdominal pain possibly secondary to diverticulitis versus urinary tract infection #Transaminitis Has been complaining of pain since past week that is worsened in past few days. Endorses constipation for past 3 days no previous blood noted in stool, no nausea/vomiting. Pain worsens with deep palpation. Mild rigidity. No signs of acute infection at this time. Etiology: Constipation vs diverticulosis vs diverticulitis vs mesenteric ischemia vs diabetic gastroparesis vs IBD CT a/p Colonic diverticulosis, no diverticulitis ?N.p.o. ? Start Flagyl 500 p.o. 3 times daily ? IV ciprofloxacin -400 mg twice daily #History type 2 diabetes On admission initial glucose 242. Last A1c 6.9 on 08/2023. Patient takes metformin 1000 PO BID for diabetes at home. -Held home medications -Bedside blood glucose checks AC -Insulin lispro sliding scale -Carb consistent low diet (right now NPO) -Diabetes education -New A1c pending #History CAD S/P stents And October [address] Mathur. ?Start aspirin 81 mg daily ?Atorvastatin 40 mg p.o. daily Health maintenance: Dispo: med surg, CHF ex, LLQ pain DVT prophylaxis: SCDs CODE STATUS: Full code Diet: NPO The patient's management plan was discussed with my attending physician Dr. Kaur and senior Dr. Toni Muniz, PGY-1 Attending Provider Attestation/Addendum I have discussed and was present for the essential components of the history, physical examination, diagnosis, and treatment plan with the resident. I agree with the patient's care as documented by the resident and amended herein by me. Stanton Kaur, DO. Although this document has been carefully reviewed, there may still be some phonetic and other typographical errors. These errors are purely grammatical due to imperfections in the software program and should not be construed in any way to compromise the substance of the patient's medical care during this visit.
[2024-07-11] MEDS: Magnesium Sulfate 2 GM Ivpb 2 GM/50 ML BAG IV (19:18)
--- NOTE | 2024-07-11 19:18 | PC.NURSE ---
report given to Tala on tele floor. pt to go to room 362
[2024-07-11] MEDS: metroNIDAZOLE 250 MG TABLET 500 MG PO (21:09)
[2024-07-11] MEDS: ATORVASTATIN CALCIUM 20 MG TABLET 40 MG PO (21:09)
[2024-07-12] VITALS (10 sets, daily range): BP systolic 93–104; BP diastolic 53–69; PULSE 70–92; RESP 16–96; TEMP 36.2–37; O2SAT 94–99
[2024-07-12] MEDS: metroNIDAZOLE 250 MG TABLET 500 MG PO (05:27)
[2024-07-12 06:25] LABS: Basophils % (Auto) 0 % (0-2.5); Eosinophils # (Auto) 0.2 Thou/mm3 (0.0-0.5); Eosinophils % (Auto) 3 % (0-10); Hematocrit 28.2 % (41.0-53.0); Hemoglobin 9.9 g/dL (13.5-16.0); Immature Granulocytes % (Auto) 0 % (0-0); Immature Granulocytes Auto 0.02 Thou/mm3 (0.00-0.00); Lymphocytes # (Auto) 1.2 Thou/mm3 (1.0-4.8); Lymphocytes % (Auto) 19 % (10-50); Mean Corpuscular HGB Conc 35.1 g/dl (31.0-37.0); Mean Corpuscular Hemoglobin 31.3 pg (25.0-35.0); Mean Corpuscular Volume 89 fL (80-100); Monocytes # (Auto) 0.9 Thou/mm3 (0.0-0.8); Monocytes % (Auto) 14 % (0-12); Neutrophils # (Auto) 3.8 Thou/mm3 (1.8-7.7); Neutrophils % (Auto) 63 % (37-80); Nucleated Red Blood Cell % 0 /100 WBC (0); Platelet Count 252 Thou/mm3 (140-440); RDW Standard Deviation 42.6 fL (35.1-43.9); Red Blood Count 3.16 Miln/mm3 (4.50-5.90)
[2024-07-12 06:59] LABS: Glucose Estimated Average 235 mg/dL (80-131); Hemoglobin A1C 9.8 % Hgb (4.8-6.0)
[2024-07-12 07:16] LABS: Anion Gap 7 (7-16); Blood Urea Nitrogen 9 mg/dL (9-23); Carbon Dioxide 27.8 mMol/L (20.0-31.0); Chloride 91 mMol/L (98-107); Creatinine (Component) 0.7 mg/dL (0.6-1.3); Potassium 3.9 mMol/L (3.4-5.1); Sodium 126 mMol/L (136-145)
[2024-07-12 07:17] LABS: Alanine Aminotransferase 49 U/L (10-49); Albumin, Serum 4.2 gm/dL (3.4-4.8); Albumin/Globulin Ratio 1.4 (1.2-2.2); Alkaline Phosphatase 130 U/L (46-116); Aspartate Amino Transferase 55 U/L (0-34); BUN/Creatinine Ratio 13 Ratio (12-20); Bilirubin,Total 0.7 mg/dL (0.3-1.2); Calcium 8.9 mg/dL (8.3-10.6); Calcium (Corrected) 8.9 mg/dL (8.5-10.1); Estimated Creatinine Clearance 72.8 mL/min (>60); Glucose 71 mg/dL (74-106); Magnesium 1.9 mg/dL (1.6-2.6); Osmolality,Calculated 250 (275-295); Phosphorous 3.5 mg/dL (2.4-5.1); Total Protein 7.2 gm/dL (5.7-8.2); eGFR > 60 See Note
[2024-07-12] MEDS: FERROUS SULF 325 MG TABLET PO (09:08)
[2024-07-12] MEDS: CIPROFLOXACIN/D5w 400 MG IVPB 400 MG/200 ML BAG 200 MG IV (09:08)
[2024-07-12] MEDS: ASPIRIN EC 81 MG TABEC PO (09:08)
[2024-07-12] MEDS: FINASTERIDE 5 MG TABLET PO (09:29)
[2024-07-12] MEDS: TAMSULOSIN HCL 0.4 MG CAPSULE PO (09:30)
--- NOTE | 2024-07-12 09:49 | PC.SS ---
Patient Zach Garcia is a 79 Year old male admitted for CHF EXACERBATION, ABD Pain. SS met with patient at bedside to discuss discharge plan and review demographic information. Patient reports he lives at home with his , Karina Garcia who he reports is his surrogate decision maker [phone]. He reports he utilizes a cane to assist with ambulation. Patient's PCP is Alexander Reynoso. Patient's choice of pharmacy is [facility] in [place]. At time of discharge patient will return home, patient's son, Prieto will provide transportation. Discharge plan: Home Next of Kin: , Dwayne Garcia
--- NOTE | 2024-07-12 10:36 | PD.RESPRO ---
Documentation for date of: 07/12/24 Subjective Subjective Interval history: Patient was seen and examined at bedside. No acute events overnight. Today patient states that pain has resolved and had bowel movement with no blood in the stool. Endorses having difficulty in urination with urinary hesitancy. CT abdomen pelvis showed very distended bladder with prostatomegaly. Therefore started Law catheter and started patient on tamsulosin 0.4 mg daily and Finasteride 5 mg p.o. daily. Urine output after law placed was 600cc immediately. Patient will need to follow-up with urology outpatient. Sodium improving to 126 today with fluid restriction. This morning blood pressure been on soft side 97/69. Therefore hold Lasix and Coreg parameters to hold if SBP < 100 Echo is pending Stopped metronidazole and ciprofloxacin due to low suspicion of diverticulitis on CT abdomen pelvis. Advance diet as tolerated. Labs, telemetry, and vitals were reviewed.?No further complaints at this time. Review of systems otherwise negative except what is mentioned above. Exam Vital Signs Temp Pulse Resp BP Pulse Ox O2 Del Method 98.0 F 77 20 104/67 96 Room Air 07/12/24 08:00 07/12/24 08:06 07/12/24 08:06 07/12/24 08:00 07/12/24 08:06 07/12/24 08:00 Narrative Exam General: Alert and oriented x3. No acute distress, cooperative HEENT: Atraumatic, normocephalic. No JVD noted. Mucosa moist. Cardiovascular: Normal S1 and S2. Regular rate and rhythm. No pitting edema Respiratory: diffuse b/L crackles on expiration, frequent productive cough Abdomen: Soft, LLQ pain to palpation, guarding, no ridgidity, not distended, normal bowel sounds. Skin: Warm to touch, dry, no rashes noted Musculoskeletal: No gross injuries. Able to move all 4 extremities. Neuro: Alert and oriented x3. No focal neuro deficits. Psych: Normal affect and mood Objective Labs 07/14/24 04:47 07/14/24 04:47 Labs: Laboratory Results - last 24 hr 07/11/24 07/11/24 07/12/24 15:43 17:20 04:37 WBC 8.1 6.0 RBC 3.27 L 3.16 L Hgb 10.2 L 9.9 L Hct 29.0 L 28.2 L MCV 89 89 MCH 31.2 31.3 MCHC 35.2 35.1 RDW Std Deviation 42.5 42.6 Plt Count 248 D 252 Neut % (Auto) 88 H 63 Lymph % (Auto) 7 L 19 [place] % (Auto) 5 14 H Eos % (Auto) 0 3 Baso % (Auto) 0 0 Neut # (Auto) 7.1 3.8 Lymph # (Auto) 0.6 L 1.2 [place] # (Auto) 0.4 0.9 H Eos # (Auto) 0.0 0.2 Baso # (Auto) 0.0 0.0 Immature Gran # (Auto) 0.02 H 0.02 H Absolute Nucleated RBC 0.00 0.00 Immature Gran % 0 0 Nucleated RBC % 0 0 Sodium 122 L 126 L Potassium 4.5 3.9 D Chloride 90 L 91 L Carbon Dioxide 23.1 27.8 Anion Gap 9 7 BUN 12 9 Creatinine 0.7 0.7 Estim Creat Clear Calc 72.8 72.8 eGFR > 60 > 60 BUN/Creatinine Ratio 17 13 Glucose [address] H [address] Glu mg/dL 235 H Hemoglobin A1c 9.8 H Calculated Osmolality 253 L 250 L Calcium 9.0 8.9 Corrected Calcium 9.0 8.9 Phosphorus 3.5 Magnesium 1.5 L 1.9 Total Bilirubin 0.7 0.7 AST 89 H 55 H ALT 62 H 49 Alkaline Phosphatase 164 H 130 H D Troponin I < 0.020 B-Natriuretic Peptide 1403 H* Total Protein 7.5 7.2 Albumin 4.4 4.2 Globulin 3.1 3.0 Albumin/Globulin Ratio 1.4 1.4 Lipase 33 Ur Collection Type Clean Catch Urine Color Yellow Urine Clarity Clear Urine pH 6.0 Ur Specific [place] 1.011 Urine Protein Trace Urine Glucose (UA) 4+ A Urine Ketones 2+ A Urine Blood Negative Urine Nitrite Negative Urine Bilirubin Negative Urine Urobilinogen (Auto) Negative Ur Leukocyte Esterase Negative Urine RBC 1 Urine WBC 1 Ur Squamous Epith Cells 1 Urine Bacteria None Hyaline Casts < 1 Quality Measures Quality Measures none Advance care planning discussed with:: patient Assessment & Plan Assessment Current Active Medications: Generic Name Dose Route Start Last Admin Trade Name Freq PRN Reason Stop Dose Admin Acetaminophen 650 mg 07/12/24 10:35 Acetaminophen 325 Mg Tablet PO 08/10/24 17:54 Q6H PRN Fever >100.3 or pain(1-3) Albuterol/Ipratropium 3 ml 07/11/24 17:55 Albuterol/Ipratropium (Duoneb) Rt Shanta 3 Ml Nebu INH 08/10/24 18:59 Q6HRRT PRN SHORTNESS OF BREATH Aspirin 81 mg 07/12/24 09:00 07/12/24 09:08 Aspirin Ec 81 Mg Tabec PO 08/11/24 08:59 81 mg DAILY PALAK Administration Atorvastatin Calcium 40 mg 07/11/24 21:00 07/11/24 21:09 Atorvastatin Calcium 20 Mg Tablet PO 08/10/24 20:59 40 mg QPM PALAK Administration Carvedilol 3.125 mg 07/11/24 21:00 07/11/24 21:10 Carvedilol 3.125 Mg Tablet PO 08/10/24 20:59 Not Given BID PALAK Dextrose 25 ml 07/11/24 18:39 Dextrose 50%-Water Inj 50 Ml Syringe IV 08/10/24 18:38 Q15MIN PRN BG 50-70 responsive npo pt Dextrose 50 ml 07/11/24 18:39 Dextrose 50%-Water Inj 50 Ml Syringe IV 08/10/24 18:38 Q15MIN PRN BG <50 OR BG <70 & pt unresponsive Ferrous Sulfate 325 mg 07/12/24 09:00 07/12/24 09:08 Ferrous Sulf 325 Mg Tablet PO 08/11/24 08:59 325 mg QDAY PALAK Administration Finasteride 5 mg 07/12/24 09:15 07/12/24 09:29 Finasteride 5 Mg Tablet PO 08/11/24 09:14 5 mg QDAY PALAK Administration Furosemide 40 mg 07/12/24 09:00 Furosemide Inj 10 Mg/Ml Vial 2 Ml IVP 08/11/24 08:59 QDAY PALAK Glucagon 1 mg 07/11/24 18:39 Glucagon Inj 1 Mg Vial IM Q15MIN PRN BG <70, and no IV access Ciprofloxacin/Dextrose 400 mg in 200 mls @ 200 mls/hr 07/11/24 18:15 07/12/24 09:08 Cipro Ivpb IV 07/18/24 18:14 200 mls/hr Q12HR PALAK Administration Insulin Human Lispro 0 unit 07/12/24 07:30 07/12/24 07:34 Insulin Lispro (Admelog) 1 Unit/0.01 Ml Unit SC 08/11/24 07:29 Not Given AC [facility] Protocol Metronidazole 500 mg 07/11/24 22:00 07/12/24 05:27 Metronidazole 250 Mg Tablet PO 07/18/24 21:59 500 mg TID PALKA Administration Ondansetron HCl 4 mg 07/11/24 17:55 Ondansetron Inj 2 Mg/Ml Inj 2 Ml IV 08/10/24 17:54 Q6H PRN NAUSEA OR VOMITING Protocol Spironolactone 12.5 mg 07/12/24 09:00 Spironolactone 25 Mg Tablet PO 08/11/24 08:59 DAILY PALAK Tamsulosin HCl 0.4 mg 07/12/24 09:15 07/12/24 09:30 Tamsulosin Hcl 0.4 Mg Capsule PO 08/11/24 09:14 0.4 mg QDAY PALAK Administration Tramadol HCl 50 mg 07/12/24 10:35 Tramadol Hcl 50 Mg Tablet PO 07/16/24 18:20 BID PRN PAIN SCALE 4-10(Mod-Sev Plan Zach Garcia is 79 yr male with PMH of HFrEF 20%, CAD s/p stent in October 2023, insulin-dependent type 2 diabetes who presented to ED today due to worsening abdominal pain and shortness of breath. Patient's son was at bedside who provided history. Patient stated that since past week abdominal pain started in left lower quadrant and a dull achy pattern that worsened the past few days. He had taken tramadol which temporarily relieved the pain however would return intermittently. Patient endorses constipation for the past 2 to 3 days as well but had bowel movement today that was loose and yellow in discoloration, no blood. Also complains of productive cough and difficulty walking short distances and daily activities. Endorses orthopnea. Patient admitted for CHF exacerbation management of left lower quadrant abdominal pain. #Acute on chronic decompensated heart failure #History of HFrEF, 20% S/p ICD placement in Aug 2023. Patient endorses orthopnea, shortness of breath, cough. Is currently on goal-directed medical therapy including Coreg 3.125 mg p.o. twice daily, furosemide 40 mg p.o. daily, spironolactone 12.5 mg p.o. daily., Entresto 24 mg daily, Farxiga 10 mg daily. On physical exam no JVD, no lower extremity swelling, however diffuse bilateral crackles auscultated. Labs significant for elevated BNP 1403, hypervolemia indicated by low sodium and low osmolality. Chest x-ray and CT A/P showing significant vascular congestion with early septal edema at the lung bases. Most recent echo from August 2023 showed ejection fraction of 20%. ?hold IV Lasix 40 mg daily ?Albuterol/ipratropium every 6 hours as needed for cough ? Coreg 3.125 mg p.o. twice daily--hold if SBP <100 ?Spironolactone 12.5 mg daily--hold if SBP<100 -echo pending -daily weights -strict INOs -low sodium diet -restrict fluid to 1500mL -keep potassium >4, mag >2 -daily CBC, CMP #Hypoosmolar hyponatremia Patient remains asymptomatic. Likely due to side effect diuretics vs volume overload state vs decreased oral intake vs GI losses vs third spacing fluid. On admission, sodium 122. Osmolality 253. Today sodium 126, Osm 250 -Anticipate improvement with diuresis and fluid restriction -Continue monitoring daily #Hypomagnesemia-resolved Most likely due to dilutional state and volume overload status. On admission magnesium 1.5 Today 1.9 ?Repleted with 2 g ? Continue to monitor daily #Left lower quadrant abdominal pain possibly secondary to diverticulitis versus urinary tract infection #Transaminitis Has been complaining of pain since past week that is worsened in past few days. Endorses constipation for past 3 days no previous blood noted in stool, no nausea/vomiting. Pain worsens with deep palpation. Mild rigidity. No signs of acute infection at this time. Etiology: Constipation vs diverticulosis vs diverticulitis vs mesenteric ischemia vs diabetic gastroparesis vs IBD CT a/p Colonic diverticulosis, no diverticulitis ?advance diet ? stop Flagyl and ciprofloxacin -advance diet as tolerated #Prostatomegaly Patient expressing discomfort in urination with urinary hesitancy. CT abdomen pelvis showed prostatomegaly with distended bladder. -Place Law catheter and immediately drained 600 cc of urine -Start finasteride 5 mg p.o. daily -Start tamsulosin 0.4 mg p.o. daily -consider voiding trial before discharge otherwise will need law on d/c -Follow-up with urology outpatient #History type 2 diabetes On admission initial glucose 242. Last A1c 6.9 on 08/2023. Patient takes metformin 1000 PO BID for diabetes at home. -Held home medications -Bedside blood glucose checks AC -Insulin lispro sliding scale -Carb consistent low diet -Diabetes education -New A1c pending #History CAD S/P stents And October [address] Mathur. ?Start aspirin 81 mg daily ?Atorvastatin 40 mg p.o. daily Health maintenance: Dispo: med surg, prostatomegaly DVT prophylaxis: SCDs CODE STATUS: Full code Diet: liquid--advance as tolerated The patient's management plan was discussed with my attending physician Dr. Kaur and senior Dr. Toni Muniz, PGY-1 Attending Provider Attestation/Addendum I have discussed and was present for the essential components of the history, physical examination, diagnosis, and treatment plan with the resident. I agree with the patient's care as documented by the resident and amended herein by me. Stanton Kaur DO. Although this document has been carefully reviewed, there may still be some phonetic and other typographical errors. These errors are purely grammatical due to imperfections in the software program and should not be construed in any way to compromise the substance of the patient's medical care during this visit.
[2024-07-12] MEDS: carVEDILOL 3.125 MG TABLET PO (16:33)
[2024-07-12] MEDS: ALBUTEROL/IPRATROPIUM (Duoneb) RT SOL 3 ML NEBU INH (19:52)
[2024-07-12] MEDS: ATORVASTATIN CALCIUM 20 MG TABLET 40 MG PO (20:10)
[2024-07-13] VITALS (11 sets, daily range): BP systolic 94–129; BP diastolic 57–86; PULSE 60–141; RESP 16–97; TEMP 35.9–36.6; O2SAT 96–98
[2024-07-13 06:59] LABS: Basophils % (Auto) 0 % (0-2.5); Eosinophils # (Auto) 0.2 Thou/mm3 (0.0-0.5); Eosinophils % (Auto) 5 % (0-10); Hematocrit 28.8 % (41.0-53.0); Hemoglobin 10.1 g/dL (13.5-16.0); Immature Granulocytes % (Auto) 0 % (0-0); Immature Granulocytes Auto 0.01 Thou/mm3 (0.00-0.00); Lymphocytes # (Auto) 0.9 Thou/mm3 (1.0-4.8); Lymphocytes % (Auto) 19 % (10-50); Mean Corpuscular HGB Conc 35.1 g/dl (31.0-37.0); Mean Corpuscular Hemoglobin 31.5 pg (25.0-35.0); Mean Corpuscular Volume 90 fL (80-100); Monocytes # (Auto) 0.7 Thou/mm3 (0.0-0.8); Monocytes % (Auto) 15 % (0-12); Neutrophils # (Auto) 2.7 Thou/mm3 (1.8-7.7); Neutrophils % (Auto) 60 % (37-80); Nucleated Red Blood Cell % 0 /100 WBC (0); Platelet Count 250 Thou/mm3 (140-440); RDW Standard Deviation 42.7 fL (35.1-43.9); Red Blood Count 3.21 Miln/mm3 (4.50-5.90); White Blood Count 4.5 Thou/mm3 (3.8-10.6)
[2024-07-13 07:23] LABS: Alanine Aminotransferase 40 U/L (10-49); Albumin, Serum 4.2 gm/dL (3.4-4.8); Albumin/Globulin Ratio 1.4 (1.2-2.2); Alkaline Phosphatase 112 U/L (46-116); Anion Gap 7 (7-16); Aspartate Amino Transferase 38 U/L (0-34); BUN/Creatinine Ratio 13 Ratio (12-20); Bilirubin,Total 0.8 mg/dL (0.3-1.2); Blood Urea Nitrogen 8 mg/dL (9-23); Calcium 8.9 mg/dL (8.3-10.6); Calcium (Corrected) 8.9 mg/dL (8.5-10.1); Carbon Dioxide 27.1 mMol/L (20.0-31.0); Chloride 94 mMol/L (98-107); Creatinine (Component) 0.6 mg/dL (0.6-1.3); Globulin 2.9 gm/dL (2.3-3.5); Glucose 109 mg/dL (74-106); Magnesium 1.8 mg/dL (1.6-2.6); Osmolality,Calculated 256 (275-295); Potassium 3.7 mMol/L (3.4-5.1); Sodium 128 mMol/L (136-145); Total Protein 7.1 gm/dL (5.7-8.2); eGFR > 60 See Note
[2024-07-13] MEDS: FINASTERIDE 5 MG TABLET PO (09:20)
[2024-07-13] MEDS: ASPIRIN EC 81 MG TABEC PO (09:20)
[2024-07-13] MEDS: SPIRONOLACTONE 25 MG TABLET 12.5 MG PO (09:21)
[2024-07-13] MEDS: FERROUS SULF 325 MG TABLET PO (09:21)
[2024-07-13] MEDS: carVEDILOL 3.125 MG TABLET PO ×2 (09:21→17:37)
[2024-07-13] MEDS: TAMSULOSIN HCL 0.4 MG CAPSULE PO (09:23)
[2024-07-13] MEDS: INSULIN LISPRO (AdmeLOG) 1 UNIT/0.01 ML UNIT SC (11:34)
--- NOTE | 2024-07-13 17:03 | PD.RESPRO ---
Documentation for date of: 07/13/24 Subjective Subjective Interval history: Patient was seen and examined by the bedside. Stated that he does not have any complaints and no acute overnight events. Vitals are stable. As the blood pressures are running low, held Lasix for today. Bladder training was done and as the patient is able to feel the sensations, Law catheter was removed. Echo is still pending tomorrow and once if it is done, will discharge the patient. Exam Vital Signs Temp Pulse Resp BP Pulse Ox O2 Del Method 96.6 F L 70 16 95/62 98 Room Air 07/13/24 16:00 07/13/24 16:00 07/13/24 16:00 07/13/24 16:00 07/13/24 16:00 07/13/24 16:00 Narrative Exam General: Awake and in no acute distress. HEENT: Normocephalic, atraumatic, mucous membranes moist. Heart: Regular rate and rhythm, no murmurs. Lungs: Clear to auscultation with no wheezing or crackles. Abdomen: Soft, nondistended, nontender, positive bowel sounds. ?No guarding or rebound tenderness. Neurologic: Alert and oriented x3, no gross neurological deficit, and patient able to move all 4 extremities. Extremities: No edema. Skin: No rash or ecchymoses. Objective Labs 07/14/24 04:47 07/14/24 04:47 Labs: Laboratory Results - last 24 hr 07/13/24 06:05 WBC 4.5 RBC 3.21 L Hgb 10.1 L Hct 28.8 L MCV 90 MCH 31.5 MCHC 35.1 RDW Std Deviation 42.7 Plt Count 250 Neut % (Auto) 60 Lymph % (Auto) 19 [place] % (Auto) 15 H Eos % (Auto) 5 Baso % (Auto) 0 Neut # (Auto) 2.7 Lymph # (Auto) 0.9 L [place] # (Auto) 0.7 Eos # (Auto) 0.2 Baso # (Auto) 0.0 Immature Gran # (Auto) 0.01 H Absolute Nucleated RBC 0.00 Immature Gran % 0 Nucleated RBC % 0 Sodium 128 L Potassium 3.7 Chloride 94 L Carbon Dioxide 27.1 Anion Gap 7 BUN 8 L Creatinine 0.6 Estim Creat Clear Calc 85.0 eGFR > 60 BUN/Creatinine Ratio 13 Glucose 109 H D Calculated Osmolality 256 L Calcium 8.9 Corrected Calcium 8.9 Magnesium 1.8 Total Bilirubin 0.8 AST 38 H ALT 40 Alkaline Phosphatase 112 Total Protein 7.1 Albumin 4.2 Globulin 2.9 Albumin/Globulin Ratio 1.4 Quality Measures Quality Measures none Advance care planning discussed with:: patient Assessment & Plan Assessment Current Active Medications: Generic Name Dose Route Start Last Admin Trade Name Freq PRN Reason Stop Dose Admin Acetaminophen 650 mg 07/12/24 10:35 Acetaminophen 325 Mg Tablet PO 08/10/24 17:54 Q6H PRN Fever >100.3 or pain(1-3) Albuterol/Ipratropium 3 ml 07/11/24 17:55 07/12/24 19:52 Albuterol/Ipratropium (Duoneb) Rt Shanta 3 Ml Nebu INH 08/10/24 18:59 3 ml Q6HRRT PRN Administration SHORTNESS OF BREATH Aspirin 81 mg 07/12/24 09:00 07/13/24 09:20 Aspirin Ec 81 Mg Tabec PO 08/11/24 08:59 81 mg DAILY PALAK Administration Atorvastatin Calcium 40 mg 07/11/24 21:00 07/12/24 20:10 Atorvastatin Calcium 20 Mg Tablet PO 08/10/24 20:59 40 mg QPM PALAK Administration Carvedilol 3.125 mg 07/12/24 10:51 07/13/24 09:21 Carvedilol 3.125 Mg Tablet PO 08/11/24 10:50 3.125 mg BIDWM PALAK Administration Dextrose 25 ml 07/11/24 18:39 Dextrose 50%-Water Inj 50 Ml Syringe IV 08/10/24 18:38 Q15MIN PRN BG 50-70 responsive npo pt Dextrose 50 ml 07/11/24 18:39 Dextrose 50%-Water Inj 50 Ml Syringe IV 08/10/24 18:38 Q15MIN PRN BG <50 OR BG <70 & pt unresponsive Ferrous Sulfate 325 mg 07/12/24 09:00 07/13/24 09:21 Ferrous Sulf 325 Mg Tablet PO 08/11/24 08:59 325 mg QDAY PALAK Administration Finasteride 5 mg 07/12/24 09:15 07/13/24 09:20 Finasteride 5 Mg Tablet PO 08/11/24 09:14 5 mg QDAY PALAK Administration Furosemide 40 mg 07/12/24 09:00 07/12/24 11:03 Furosemide Inj 10 Mg/Ml Vial 2 Ml IVP 08/11/24 08:59 Not Given QDAY PALAK Glucagon 1 mg 07/11/24 18:39 Glucagon Inj 1 Mg Vial IM Q15MIN PRN BG <70, and no IV access Insulin Human Lispro 0 unit 07/12/24 07:30 07/13/24 11:34 Insulin Lispro (Admelog) 1 Unit/0.01 Ml Unit SC 08/11/24 07:29 2 unit AC PALAK Administration Protocol Ondansetron HCl 4 mg 07/11/24 17:55 Ondansetron Inj 2 Mg/Ml Inj 2 Ml IV 08/10/24 17:54 Q6H PRN NAUSEA OR VOMITING Protocol Spironolactone 12.5 mg 07/12/24 09:00 07/13/24 09:21 Spironolactone 25 Mg Tablet PO 08/11/24 08:59 12.5 mg DAILY PALAK Administration Tamsulosin HCl 0.4 mg 07/12/24 09:15 07/13/24 09:23 Tamsulosin Hcl 0.4 Mg Capsule PO 08/11/24 09:14 0.4 mg QDAY PALAK Administration Tramadol HCl 50 mg 07/12/24 10:35 Tramadol Hcl 50 Mg Tablet PO 07/16/24 18:20 BID PRN PAIN SCALE 4-10(Mod-Sev Plan Zach Garcia is 79 yr male with PMH of HFrEF 20%, CAD s/p stent in October 2023, insulin-dependent type 2 diabetes who presented to ED today due to worsening abdominal pain and shortness of breath. Patient's son was at bedside who provided history. Patient stated that since past week abdominal pain started in left lower quadrant and a dull achy pattern that worsened the past few days. He had taken tramadol which temporarily relieved the pain however would return intermittently. Patient endorses constipation for the past 2 to 3 days as well but had bowel movement today that was loose and yellow in discoloration, no blood. Also complains of productive cough and difficulty walking short distances and daily activities. Endorses orthopnea. Patient admitted for CHF exacerbation management of left lower quadrant abdominal pain. #Acute on chronic decompensated heart failure #History of HFrEF, 20% S/p ICD placement in Aug 2023. Patient endorses orthopnea, shortness of breath, cough. Is currently on goal-directed medical therapy including Coreg 3.125 mg p.o. twice daily, furosemide 40 mg p.o. daily, spironolactone 12.5 mg p.o. daily., Entresto 24 mg daily, Farxiga 10 mg daily. On physical exam no JVD, no lower extremity swelling, however diffuse bilateral crackles auscultated. Labs significant for elevated BNP 1403, hypervolemia indicated by low sodium and low osmolality. Chest x-ray and CT A/P showing significant vascular congestion with early septal edema at the lung bases. Most recent echo from August 2023 showed ejection fraction of 20%. ?hold IV Lasix 40 mg daily in view of low blood pressures. ?Albuterol/ipratropium every 6 hours as needed for cough ? Coreg 3.125 mg p.o. twice daily--hold if SBP <100 ?Spironolactone 12.5 mg daily--hold if SBP<100 -echo pending -daily weights -strict INOs -low sodium diet -restrict fluid to 1500mL -keep potassium >4, mag >2 -daily CBC, CMP #Hypoosmolar hyponatremia Patient remains asymptomatic. Likely due to side effect diuretics vs volume overload state vs decreased oral intake vs GI losses vs third spacing fluid. On admission, sodium 122. Osmolality 253. Today sodium 128, Osm 256 -Anticipate improvement with diuresis and fluid restriction -Continue monitoring daily #Hypomagnesemia-resolved Most likely due to dilutional state and volume overload status. On admission magnesium 1.5 Today 1.8 ? Continue to monitor daily #Left lower quadrant abdominal pain possibly secondary to diverticulitis versus urinary tract infection #Transaminitis Has been complaining of pain since past week that is worsened in past few days. Endorses constipation for past 3 days no previous blood noted in stool, no nausea/vomiting. Pain worsens with deep palpation. Mild rigidity. No signs of acute infection at this time. Etiology: Constipation vs diverticulosis vs diverticulitis vs mesenteric ischemia vs diabetic gastroparesis vs IBD CT a/p Colonic diverticulosis, no diverticulitis ?advance diet ? stop Flagyl and ciprofloxacin -advance diet as tolerated #Prostatomegaly Patient expressing discomfort in urination with urinary hesitancy. CT abdomen pelvis showed prostatomegaly with distended bladder. -Place Law catheter and immediately drained 600 cc of urine -Start finasteride 5 mg p.o. daily -Start tamsulosin 0.4 mg p.o. daily - voiding trial done - passed and law catheter is removed -Follow-up with urology outpatient #History type 2 diabetes On admission initial glucose 242. Last A1c 6.9 on 08/2023. Patient takes metformin 1000 PO BID for diabetes at home. -Held home medications -Bedside blood glucose checks AC -Insulin lispro sliding scale -Carb consistent low diet -Diabetes education -New A1c - 9.8 #History CAD S/P stents And October [address] Mathur. ?Start aspirin 81 mg daily ?Atorvastatin 40 mg p.o. daily Health maintenance: Dispo: med surg, prostatomegaly DVT prophylaxis: SCDs CODE STATUS: Full code Diet: liquid--advance as tolerated Patient plan of care was discussed with the attending physician, Dr. Alvarez Henriquez, PGY1 Attending Provider Attestation/Addendum Bárbara France DO, attest that I was physically present for the joyner portions of the service and evaluated the patient with the resident and I reviewed and discussed the case with the resident and agree with the resident's findings and plans of care as documented above Patient seen and evaluated this a.m. Son is at bedside. Patient has no acute complaints at this time. He states that he is feeling much improved. He is currently on room air. Pending echocardiogram. Patient appears to be dry. Will hold Lasix at this time. Sodium appears improved as well. Anticipate discharge in the next 24 hours once echocardiogram is done. Will do bladder training and remove Law catheter. Explained to patient and son that they will need to follow-up with urology due to prostatomegaly. If patient fails to void independently, may need Law catheter for home.
[2024-07-13] MEDS: ATORVASTATIN CALCIUM 20 MG TABLET 40 MG PO (20:25)
[2024-07-13] MEDS: BENZONATATE 100 MG CAPSULE PO (22:18)
[2024-07-14] VITALS: BP 104/62; PULSE 85; RESP 17; TEMP 36.3; O2SAT 92
[2024-07-14 04:00] VITALS: BP 90/60; PULSE 80; RESP 17; TEMP 36.1; O2SAT 96
[2024-07-14 05:53] VITALS: BMI 24.6
[2024-07-14 06:02] LABS: Basophils % (Auto) 0 % (0-2.5); Eosinophils # (Auto) 0.3 Thou/mm3 (0.0-0.5); Eosinophils % (Auto) 6 % (0-10); Hemoglobin 10.1 g/dL (13.5-16.0); Immature Granulocytes % (Auto) 0 % (0-0); Immature Granulocytes Auto 0.01 Thou/mm3 (0.00-0.00); Lymphocytes # (Auto) 1.2 Thou/mm3 (1.0-4.8); Lymphocytes % (Auto) 23 % (10-50); Mean Corpuscular HGB Conc 34.8 g/dl (31.0-37.0); Mean Corpuscular Hemoglobin 31.5 pg (25.0-35.0); Mean Corpuscular Volume 90 fL (80-100); Monocytes # (Auto) 0.8 Thou/mm3 (0.0-0.8); Monocytes % (Auto) 15 % (0-12); Neutrophils # (Auto) 2.9 Thou/mm3 (1.8-7.7); Neutrophils % (Auto) 56 % (37-80); Nucleated Red Blood Cell % 0 /100 WBC (0); Platelet Count 193 Thou/mm3 (140-440); RDW Standard Deviation 42.7 fL (35.1-43.9); Red Blood Count 3.21 Miln/mm3 (4.50-5.90); White Blood Count 5.1 Thou/mm3 (3.8-10.6)
[2024-07-14 06:23] LABS: Alanine Aminotransferase 37 U/L (10-49); Albumin/Globulin Ratio 1.2 (1.2-2.2); Alkaline Phosphatase 105 U/L (46-116); Anion Gap 7 (7-16); Aspartate Amino Transferase 36 U/L (0-34); BUN/Creatinine Ratio 11 Ratio (12-20); Bilirubin,Total 0.7 mg/dL (0.3-1.2); Blood Urea Nitrogen 8 mg/dL (9-23); Calcium 9.3 mg/dL (8.3-10.6); Calcium (Corrected) 9.3 mg/dL (8.5-10.1); Carbon Dioxide 28.4 mMol/L (20.0-31.0); Chloride 96 mMol/L (98-107); Creatinine (Component) 0.7 mg/dL (0.6-1.3); Estimated Creatinine Clearance 72.8 mL/min (>60); Globulin 3.3 gm/dL (2.3-3.5); Glucose 117 mg/dL (74-106); Magnesium 1.8 mg/dL (1.6-2.6); Osmolality,Calculated 261 (275-295); Potassium 4.2 mMol/L (3.4-5.1); Sodium 131 mMol/L (136-145); Total Protein 7.3 gm/dL (5.7-8.2); eGFR > 60 See Note
[2024-07-14 06:55] VITALS: PULSE 81; RESP 19; RESP 94; O2SAT 94
--- NOTE | 2024-07-14 07:37 | PD.RESPRO ---
Documentation for date of: 07/14/24 Subjective Subjective Interval history: echo bladder training Exam Vital Signs Temp Pulse Resp BP Pulse Ox O2 Del Method O2 Flow Rate 97.0 F 81 19 90/60 94 L Nasal Cannula 2 07/14/24 04:00 07/14/24 06:55 07/14/24 06:55 07/14/24 04:00 07/14/24 06:55 07/14/24 04:00 07/14/24 04:00 Objective Labs 07/14/24 04:47 07/14/24 04:47 Labs: Laboratory Results - last 24 hr 07/14/24 04:47 WBC 5.1 RBC 3.21 L Hgb 10.1 L Hct 29.0 L MCV 90 MCH 31.5 MCHC 34.8 RDW Std Deviation 42.7 Plt Count 193 D Neut % (Auto) 56 Lymph % (Auto) 23 [place] % (Auto) 15 H Eos % (Auto) 6 Baso % (Auto) 0 Neut # (Auto) 2.9 Lymph # (Auto) 1.2 [place] # (Auto) 0.8 Eos # (Auto) 0.3 Baso # (Auto) 0.0 Immature Gran # (Auto) 0.01 H Absolute Nucleated RBC 0.00 Immature Gran % 0 Nucleated RBC % 0 Sodium 131 L Potassium 4.2 D Chloride 96 L Carbon Dioxide 28.4 Anion Gap 7 BUN 8 L Creatinine 0.7 Estim Creat Clear Calc 72.8 eGFR > 60 BUN/Creatinine Ratio 11 L Glucose 117 H Calculated Osmolality 261 L Calcium 9.3 Corrected Calcium 9.3 Magnesium 1.8 Total Bilirubin 0.7 AST 36 H ALT 37 Alkaline Phosphatase 105 Total Protein 7.3 Albumin 4.0 Globulin 3.3 Albumin/Globulin Ratio 1.2 Quality Measures Quality Measures none Assessment & Plan Assessment Current Active Medications: Generic Name Dose Route Start Last Admin Trade Name Freq PRN Reason Stop Dose Admin Acetaminophen 650 mg 07/12/24 10:35 Acetaminophen 325 Mg Tablet PO 08/10/24 17:54 Q6H PRN Fever >100.3 or pain(1-3) Albuterol/Ipratropium 3 ml 07/11/24 17:55 07/12/24 19:52 Albuterol/Ipratropium (Duoneb) Rt Shanta 3 Ml Nebu INH 08/10/24 18:59 3 ml Q6HRRT PRN Administration SHORTNESS OF BREATH Aspirin 81 mg 07/12/24 09:00 07/13/24 09:20 Aspirin Ec 81 Mg Tabec PO 08/11/24 08:59 81 mg DAILY PALAK Administration Atorvastatin Calcium 40 mg 07/11/24 21:00 07/13/24 20:25 Atorvastatin Calcium 20 Mg Tablet PO 08/10/24 20:59 40 mg QPM PALAK Administration Benzonatate 100 mg 07/13/24 21:57 07/13/24 22:18 Benzonatate 100 Mg Capsule PO 08/12/24 21:56 100 mg Q8HR PRN Administration COUGH Protocol Carvedilol 3.125 mg 07/12/24 10:51 07/13/24 17:37 Carvedilol 3.125 Mg Tablet PO 08/11/24 10:50 3.125 mg BIDWM PALAK Administration Dextrose 25 ml 07/11/24 18:39 Dextrose 50%-Water Inj 50 Ml Syringe IV 08/10/24 18:38 Q15MIN PRN BG 50-70 responsive npo pt Dextrose 50 ml 07/11/24 18:39 Dextrose 50%-Water Inj 50 Ml Syringe IV 08/10/24 18:38 Q15MIN PRN BG <50 OR BG <70 & pt unresponsive Ferrous Sulfate 325 mg 07/12/24 09:00 07/13/24 09:21 Ferrous Sulf 325 Mg Tablet PO 08/11/24 08:59 325 mg QDAY PALAK Administration Finasteride 5 mg 07/12/24 09:15 07/13/24 09:20 Finasteride 5 Mg Tablet PO 08/11/24 09:14 5 mg QDAY PALAK Administration Furosemide 40 mg 07/12/24 09:00 07/12/24 11:03 Furosemide Inj 10 Mg/Ml Vial 2 Ml IVP 08/11/24 08:59 Not Given QDAY PALAK Glucagon 1 mg 07/11/24 18:39 Glucagon Inj 1 Mg Vial IM Q15MIN PRN BG <70, and no IV access Insulin Human Lispro 0 unit 07/12/24 07:30 07/13/24 17:24 Insulin Lispro (Admelog) 1 Unit/0.01 Ml Unit SC 08/11/24 07:29 Not Given AC PALAK Protocol Ondansetron HCl 4 mg 07/11/24 17:55 Ondansetron Inj 2 Mg/Ml Inj 2 Ml IV 08/10/24 17:54 Q6H PRN NAUSEA OR VOMITING Protocol Spironolactone 12.5 mg 07/12/24 09:00 07/13/24 09:21 Spironolactone 25 Mg Tablet PO 08/11/24 08:59 12.5 mg DAILY PALAK Administration Tamsulosin HCl 0.4 mg 07/12/24 09:15 07/13/24 09:23 Tamsulosin Hcl 0.4 Mg Capsule PO 08/11/24 09:14 0.4 mg QDAY PALAK Administration Tramadol HCl 50 mg 07/12/24 10:35 Tramadol Hcl 50 Mg Tablet PO 07/16/24 18:20 BID PRN PAIN SCALE 4-10(Mod-Sev Plan Zach Garcia is 79 yr male with PMH of HFrEF 20%, CAD s/p stent in October 2023, insulin-dependent type 2 diabetes who presented to ED today due to worsening abdominal pain and shortness of breath. Admitted for CHF exacerbation and left lower quadrant. Patient's son was at bedside who provided history. Patient stated that since past week abdominal pain started in left lower quadrant and a dull achy pattern that worsened the past few days. He had taken tramadol which temporarily relieved the pain however would return intermittently. Patient endorses constipation for the past 2 to 3 days as well but had bowel movement today that was loose and yellow in discoloration, no blood. Also complains of productive cough and difficulty walking short distances and daily activities. Endorses orthopnea. Patient admitted for CHF exacerbation management of left lower quadrant abdominal pain. doing ok, on room air Vitals normal +700 cc, urine output 1.7 Hemoglobin 10.1 improving Sodium 131 #Acute on chronic decompensated heart failure #History of HFrEF, 20% On FUROSEMIDE 40 BID and SPIRONOLACTONE 12.5 mg daily Urine output 1.7 No signs of overload, lungs clear. No edema pending echo, repleated mag and potassium S/p ICD placement in Aug 2023. Patient endorses orthopnea, shortness of breath, cough. Is currently on goal-directed medical therapy including Coreg 3.125 mg p.o. twice daily, furosemide 40 mg p.o. daily, spironolactone 12.5 mg p.o. daily., Entresto 24 mg daily, Farxiga 10 mg daily. On physical exam no JVD, no lower extremity swelling, however diffuse bilateral crackles auscultated. Labs significant for elevated BNP 1403, hypervolemia indicated by low sodium and low osmolality. Chest x-ray and CT A/P showing significant vascular congestion with early septal edema at the lung bases. Most recent echo from August 2023 showed ejection fraction of 20%. ?hold IV Lasix 40 mg daily in view of low blood pressures. ?Albuterol/ipratropium every 6 hours as needed for cough ? Coreg 3.125 mg p.o. twice daily--hold if SBP <100 ?Spironolactone 12.5 mg daily--hold if SBP<100 -echo pending -daily weights -strict INOs -low sodium diet -restrict fluid to 1500mL -keep potassium >4, mag >2 -daily CBC, CMP #Hypoosmolar hyponatremia - imporving sodium 131, improvign with diuresis and restrictions Patient remains asymptomatic. Likely due to side effect diuretics vs volume overload state vs decreased oral intake vs GI losses vs third spacing fluid. On admission, sodium 122. Osmolality 253. Today sodium 128, Osm 256 -Anticipate improvement with diuresis and fluid restriction -Continue monitoring daily #Hypomagnesemia-resolved Most likely due to dilutional state and volume overload status. On admission magnesium 1.5 Today 1.8 ? Continue to monitor daily #Left lower quadrant abdominal pain possibly secondary to diverticulitis versus urinary tract infection - resolved #Transaminitis - imporved Has been complaining of pain since past week that is worsened in past few days. Endorses constipation for past 3 days no previous blood noted in stool, no nausea/vomiting. Pain worsens with deep palpation. Mild rigidity. No signs of acute infection at this time. Etiology: Constipation vs diverticulosis vs diverticulitis vs mesenteric ischemia vs diabetic gastroparesis vs IBD CT a/p Colonic diverticulosis, no diverticulitis ? advance diet ? stop Flagyl and ciprofloxacin - advance diet as tolerated #Prostatomegaly Patient expressing discomfort in urination with urinary hesitancy. CT abdomen pelvis showed prostatomegaly with distended bladder. -Place Law catheter and immediately drained 600 cc of urine -Start finasteride 5 mg p.o. daily -Start tamsulosin 0.4 mg p.o. daily - voiding trial done - passed and law catheter is removed -Follow-up with urology outpatient #History type 2 diabetes On admission initial glucose 242. Last A1c 6.9 on 08/2023. Patient takes metformin 1000 PO BID for diabetes at home. -Held home medications -Bedside blood glucose checks AC -Insulin lispro sliding scale -Carb consistent low diet -Diabetes education -New A1c - 9.8 #History CAD S/P stents And October [address] Mathur. ?Start aspirin 81 mg daily ?Atorvastatin 40 mg p.o. daily Health maintenance: Dispo: med surg, prostatomegaly DVT prophylaxis: SCDs CODE STATUS: Full code Diet: liquid--advance as tolerated Patient plan of care was discussed with the attending physician, Dr. Alvarez Henriquez, PGY1 Attending Provider Attestation/Addendum I, Bárbara Pino DO, attest that I was physically present for the joyner portions of the service and evaluated the patient with the resident and I reviewed and discussed the case with the resident and agree with the resident's findings and plans of care as documented above Patient seen and evaluated this a.m. Son is at bedside. Patient has no acute complaints at this time. He states that he is feeling much improved. He is currently on room air. Pending echocardiogram. Patient appears to be dry. Will hold Lasix at this time. Sodium appears improved as well. Anticipate discharge in the next 24 hours once echocardiogram is done. Will do bladder training and remove Law catheter. Explained to patient and son that they will need to follow-up with urology due to prostatomegaly. If patient fails to void independently, may need Law catheter for home.
[2024-07-14 07:45] VITALS: BP 103/62; PULSE 96; RESP 19; TEMP 36; O2SAT 95
[2024-07-14 08:29] VITALS: BP 110/62; BP 117/72; PULSE 91; PULSE 97
[2024-07-14] MEDS: SPIRONOLACTONE 25 MG TABLET 12.5 MG PO (08:29)
[2024-07-14] MEDS: carVEDILOL 3.125 MG TABLET PO (08:29)
[2024-07-14] MEDS: FERROUS SULF 325 MG TABLET PO (08:32)
[2024-07-14] MEDS: FINASTERIDE 5 MG TABLET PO (08:32)
[2024-07-14] MEDS: TAMSULOSIN HCL 0.4 MG CAPSULE PO (08:32)
[2024-07-14] MEDS: ASPIRIN EC 81 MG TABEC PO (08:32)
--- NOTE | 2024-07-14 10:38 | PC.NURSE ---
Per Dr. Breen Wait to DC pt. Dr. Pino wants to see the patient first and ECHO needs to be read.
--- NOTE | 2024-07-14 11:15 | PC.NURSE ---
Hand-off report taken from BRIGITTE Guerra.
[2024-07-14 12:00] VITALS: BP 113/73; PULSE 83; RESP 18; TEMP 36.1; O2SAT 97
[2024-07-14] MEDS: INSULIN LISPRO (AdmeLOG) 1 UNIT/0.01 ML UNIT SC (12:36)
--- NOTE | 2024-07-14 13:45 | ESDS_ITS ---
<Statement entered by Bárbara Pino DO - 07/14/24 16:47> I, Bárbara Pino DO, attest that I was physically present for the joyner portions of the service and evaluated the patient with the resident and I reviewed and discussed the case with the resident and agree with the resident's findings and plans of care as documented above <Statement entered by Oscar Breen MD - 07/14/24 16:22> Patient was examined and case was reviewed with team including attending physician. Note reviewed, I agree with the discharge plan as documented. - Oscar Breen MD, PGY 2 Planned Discharge Date 07/14/24 DS: Providers Provider Date of admission: 07/11/24 17:55 Primary care physician: Alexander Bower([facility])BRIAN Admitting Provider: Zach Kaur DO Attending Provider on Admission: Zach Kaur DO Attending Provider on DC: Nel Pino DO Discharging Provider: Nel Pino DO DS: Diagnosis Problem List Completed Was Problem List Reviewed/Reconciled?: Yes Hospital Course Hospital Course Hospital course: This is 79-year-old male with PMHx of HFrEF 20%, CAD s/p stent in October 2023, insulin-dependent type 2 diabetes who presented to ED SOB and left lower quadrant abdominal pain, admitted for CHF exacerbation and diverticulitis. Patient was diuresed, shortness of breath symptoms improved by the day of discharge. Cardiology was consulted, echo done redemonstrated ejection fraction of 20%. Patient was started on ENTRESTO and continued on his home meds. Additionally, patient finished course of ANTIBIOTICS for diverticulitis as seen on CT. Patient stable to discharge to home. He will follow-up with PCP and his wall taper helper, Dr. Minaya within 1 week of discharge. Moreover, patient was started on FINASTERIDE for prostamegaly as seen on CT. Patient has been able to be urinate on his own after law catheter was removed. Recommend for patient to f/u with urology outpatient. Incidental findings: ? Prominent osteopenia seen on chest/abdominal x-ray ? Possible cirrhosis versus primary hepatocellular disease seen on CT PATIENT INSTRUCTIONS: ? Follow-up with cardiology within 1 week of discharge ? Follow-up with PCP regarding incidental findings above ? Follow-up with urology within 2 weeks of discharge for prostamegaly ? Resume home medications described below ? Return to ED if symptoms worsen, persist or new symptoms develop CONTINUE taking the following medications: ? METFORMIN 500 mg BID ? ATORVASTATIN 40 mg daily at night ? SPIRONOLACTONE 25 mg daily ? CARVEDILOL 3.125 mg BID ? FERROUS SULFATE 325 mg daily ? ASPIRIN 81 mg daily ? TRAMADOL 50 mg BID PRN ? FUROSEMIDE 40 mg daily Admission diagnosis: #Acute on chronic decompensated heart failure #History of HFrEF, 20% #Hypoosmolar hyponatremia - imporving #Hypomagnesemia-resolved #Left lower quadrant abdominal pain possibly secondary to diverticulitis versus urinary tract infection - resolved #Transaminitis - imporved #Prostatomegaly #History type 2 diabetes #History CAD S/P stents Patient case was discussed with attending, Dr. Alvarez HILL and senior residents Dr. Roche and Dr. Breen. Basilia Pierre DO PGYI Time Spent with Patient Time attestation: Total time spent providing and/or coordinating discharge services: >30 min Exam Vital Signs Temp Pulse Resp BP Pulse Ox O2 Del Method O2 Flow Rate 96.9 F 83 18 113/73 97 Room Air 2 07/14/24 12:00 07/14/24 12:00 07/14/24 12:00 07/14/24 12:07/14/24 12:07/14/24 12:07/14/24 04:00 Narrative Exam General: Awake and in no acute distress. HEENT: Normocephalic, atraumatic, mucous membranes moist. Heart: Regular rate and rhythm, no murmurs. Lungs: Clear to auscultation with no wheezing or crackles. Abdomen: Soft, nondistended, nontender, positive bowel sounds. ?No guarding or rebound tenderness. Neurologic: Alert and oriented x3, no gross neurological deficit, and patient able to move all 4 extremities. Extremities: No edema. Skin: No rash or ecchymoses. Discharge Plan Plan Patient Disposition: HOME (Self Care) Patient condition on transfer: Stable Prescriptions/Referrals Prescriptions/Med Rec: New finasteride 5 mg tablet 5 mg PO QDAY Qty: 30 0RF Continued metformin 500 mg Tablet 1,000 mg PO BID Hold Instructions: Resume on 10/25/23. No se tome esta medicina hasta el [facility] [place]25/2023. Rx Instructions: with meals atorvastatin 40 mg Tablet 40 mg PO QPM spironolactone 25 mg Tablet 12.5 mg PO DAILY carvedilol 3.125 mg Tablet 3.125 mg PO BID Rx Instructions: with food ferrous sulfate [FeroSul] 325 mg (65 mg iron) Tablet 325 mg PO QDAY aspirin 81 mg Capsule 81 mg PO DAILY tramadol 50 mg tablet 50 mg PO BID PRN (Reason: pain) Qty: 7 0RF furosemide 40 mg tablet 40 mg PO QDAY Referrals: Cheli([facility]),BRIAN Munoz [Primary Care Provider] - Patient/Caregiver Discharge Instructions Discharge Activity: resume usual activities Other Discharge Activity Instructions:: - Follow up with primary care doctor in 1 week from discharge - Follow up with Cardiology in 1 week from discharge for revaluation - Resume home medications as prescribed. Continue home Entresto as prescribed - Follow up with Urology within 2 weeks from discharge for prostatomegaly - Take Finasteride 5mg daily for urinary retention due to benign prostatic hyperplasia - Return to ED if symptoms worsen - Seguimiento con m?dico de cabezera en 1 semana - Seguimiento con Cardiolog?a en 1 semana desde el laurence para evaluar. - lleve maldonado medicina casera a la jono - Seguimiento con Urolog?a dentro de las 2 semanas posteriores al laurence por prostatomegalia. 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 - Regresar al servicio de emergencia si los s?ntomas empeoran. Education Materials: Coping with Heart Failure, Heart Failure Making Changes to ... Print Language: Luxembourgish Stand Alone Forms: [facility] Award Info., Patient Portal Info Letter Discharge Order Discharge Orders: Discharge (Routine); Ordered 07/14/24 Ordered By: Oscar Breen Quality Discharge Quality Measures VTE prophylaxis
== END 2024-07-14 14:51 | disposition home or self-care (01) | DRG 292 ==
LOC: SERX 18:40 → SERHOLD 19:00 → S3NX 19:40 → S2NX 07-12 05:57
PROVIDERS: Admitting Provider Student in an Organized Health Care Education/Training Program; Emergency Provider Emergency Medicine; PCP Nurse Practitioner Family; Visit Provider Student in an Organized Health Care Education/Training Program
DX: I11.0 Hypertensive heart disease with heart failure (principal); E87.1 Hypo-osmolality and hyponatremia; I25.10 Atherosclerotic heart disease of native coronary artery without angina pectoris; I50.22 Chronic systolic (congestive) heart failure; M85.80 Other specified disorders of bone density and structure, unspecified site; N40.1 Benign prostatic hyperplasia with lower urinary tract symptoms; Z79.4 Long term (current) use of insulin; Z79.82 Long term (current) use of aspirin; Z79.84 Long term (current) use of oral hypoglycemic drugs; Z95.5 Presence of coronary angioplasty implant and graft; Z95.810 Presence of automatic (implantable) cardiac defibrillator; E11.9 Type 2 diabetes mellitus without complications; R39.11 Hesitancy of micturition; E83.42 Hypomagnesemia; R74.01 Elevation of levels of liver transaminase levels; R10.32 Left lower quadrant pain
CPT/HCPCS: 36415; 74022; 74176; 80053; 81001; 83036; 83690; 83735; 83880; 84100; 84484; 85025; 87040; 87811; 93005; 93225; 93306; 94640; 94664; 96365; 96375; 99285; A9270; J0744; J1815; J1940; J2270; J3475

== ENCOUNTER 2024-07-15 08:13 | Inpatient (IN) | payer OTHER, MEDICAID, MEDICARE, SELFPAY ==
[2024-07-15] VITALS (16 sets, daily range): BP systolic 95–172; BP diastolic 58–86; PULSE 74–130; RESP 16–36; TEMP 36.1–36.9; O2SAT 89–100; BMI 24.7; BMI 23.5
--- NOTE | 2024-07-15 08:18 | EKG_ITS ---
[facility] Test Date: 2024-07-15 Pat Name: JOHN COOPER Department: Room: - Gender: Male Associate Sales Representative: : 1945 Requested By: Gm Carver Order Number: [id number] Reading MD: Gm Carver Measurements Intervals [place] Rate: 125 P: 45 UT: 154 QRS: 12 QRSD: 141 T: 81 QT: 314 QTc: 454 Interpretive Statements SINUS TACHYCARDIA LEFT BUNDLE BRANCH BLOCK [120+ ms QRS DURATION, 80+ ms Q/S IN V1/V2, 85+ ms R IN I/aVL/V5/V6] Compared to ECG 07/11/2024 15:35:19 No significant changes /store/S0/[id number].pdf
--- NOTE | 2024-07-15 08:18 | XR_ITS ---
Examination: AP chest single view TECHNIQUE: AP portable upright chest single view Exam date and time: July 15, 2024 0859 hours Comparison July 04, 2024 INDICATIONS: Shortness of breath today. FINDINGS: Abnormal interstitial disease throughout the lungs Enlarged cardiac contour with prominent vascular congestion Transvenous dual-chamber bipolar cardiac leads satisfactory position Severe osteopenia with old right-sided rib fractures IMPRESSION: Mild CHF Consider superimposed bilateral interstitial pneumonia, clinical correlation advised
[2024-07-15] MEDS: FUROSEMIDE INJ 10 MG/ML 4ML VIAL 80 MG IVP (09:04)
[2024-07-15 09:08] LABS: Basophils % (Auto) 0 % (0-2.5); Eosinophils # (Auto) 0.1 Thou/mm3 (0.0-0.5); Eosinophils % (Auto) 1 % (0-10); Hemoglobin 10.8 g/dL (13.5-16.0); Immature Granulocytes % (Auto) 1 % (0-0); Immature Granulocytes Auto 0.06 Thou/mm3 (0.00-0.00); Lymphocytes # (Auto) 1.5 Thou/mm3 (1.0-4.8); Lymphocytes % (Auto) 16 % (10-50); Mean Corpuscular HGB Conc 34.8 g/dl (31.0-37.0); Mean Corpuscular Hemoglobin 31.8 pg (25.0-35.0); Mean Corpuscular Volume 91 fL (80-100); Monocytes # (Auto) 0.7 Thou/mm3 (0.0-0.8); Monocytes % (Auto) 7 % (0-12); Neutrophils # (Auto) 7.1 Thou/mm3 (1.8-7.7); Neutrophils % (Auto) 75 % (37-80); Nucleated Red Blood Cell % 0 /100 WBC (0); Platelet Count 323 Thou/mm3 (140-440); RDW Standard Deviation 43.1 fL (35.1-43.9); White Blood Count 9.4 Thou/mm3 (3.8-10.6)
--- NOTE | 2024-07-15 09:11 | PC.NURSE ---
COVID/FLU NEG RSV SENT
--- NOTE | 2024-07-15 09:20 | PD.EDADULT ---
ED General RME/HPI General Chief complaint: Shortness of Breath/Dyspnea Stated complaint: SOB Time Seen by Provider: 07/15/24 08:16 Arrival date/time: 07/15/24 08:13 RME / HPI RME / HPI narrative: Patient is a 79-year-old male with hx of insulin-dependent type 2 diabetes, HFrEF 20%, CAD s/p stent in October 2023 presented to ED of [facility] on 07/15/2024 for chief complaints off SOB and left lower quadrant abdominal pain. He was recently admitted for CHF exacerbation and diverticulitis on 07/11, discharged on 07/14/2024. He endorsed that in the morning of 07/15/2024 he started experiencing pressure on his chest with extreme shortness of breath. Patient also endorses cough with mucus. Patient endorses that mucus is clear. He also has mucus dripping from his nose in the ED. Patient denies any recent sick contacts (other than hospital contacts) or travel. PMH: as noted above Surgical hx of AICD placement, stent placement, FamHx: HTN, DM, Social: no smoking or former drinking, lives at home with family. MD complaint: Shortness of breath and cough Onset (ago): day(s) (1) Location: chest Radiation: abdomen Severity: severe Severity scale (1-10): >10 Quality: dull Consistency: intermittent Relieving factors: none Related Data Home Medications ?Medication ?Instructions ?Recorded ?Confirmed metformin 500 mg tablet 1,000 mg PO BID 01/22/20 07/15/24 aspirin 81 mg capsule 81 mg PO DAILY 10/22/23 07/15/24 atorvastatin 40 mg tablet 40 mg PO QPM 10/22/23 07/15/24 carvedilol 3.125 mg tablet 3.125 mg PO BID 10/22/23 07/15/24 spironolactone 25 mg tablet 25 mg PO DAILY 10/22/23 07/15/24 Previous Rx's ?Medication ?Instructions ?Recorded finasteride 5 mg tablet 5 mg PO QDAY #30 tabs 07/14/24 Allergies Allergy/AdvReac Type Severity Reaction Status Date / Time No Known Allergies Allergy Verified 07/15/24 08:52 Review of Systems Review of Systems Systems Reviewed: All systems reviewed, normal except as documented Past Medical History Past Medical History CARDIAC: Positive Cardiac Disorders, Congestive Heart Failure and Hypertension ENDOCRINE: Positive Endocrine Disorders and Diabetes Mellitus Type 2 Family History FAMILY HISTORY: Positive Family Cardiac Disorders Surgical History SURGICAL: Negative Vasectomy Social History SMOKING STATUS: Never smoker 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 ED Exam Narrative Physical exam: Constitutional: well-developed, well-nourished, in no acute distress, lying in bed. HEENT: NCAT, EOMI, reactive round pupils b/l, patent nares b/l, moist mucous membranes, on amubag-->Bipap Lung: CTAB, no wheezing, no rhonchi, wheezing lower lobes bilaterally Heart: Regular S1S2, no murmurs, gallops, or rubs Abdomen: Soft, non-distended, non-tender, ++bowel sounds. Extremities: No cyanosis, clubbing, no edema of b/l legs, 2+ dorsalis pedis pulses present b/l Neurologic: No focal sensory or motor deficits noted, AOx3, appropriate affect Skin: Warm, dry, no lesions or rashes noted Course Quality Measures none Orders Category Date Time Status Bedside COVID-19 Antigen Test NOW Care 07/15/24 08:18 Completed Bedside Influenza A&B Antigen Test NOW Care 07/15/24 08:18 Completed EKG (ED ONLY) *Do not use* NOW Care 07/15/24 08:18 Completed Insert IV NOW Care 07/15/24 08:54 Completed EKG (ED Only) Stat Exams 07/15/24 08:18 Draft XR chest 1V Stat Exams 07/15/24 08:18 Completed CBC Stat Lab 07/15/24 08:38 Completed CMP [Comprehensive Metabolic Panel] Stat Lab 07/15/24 08:38 Completed Lactic Acid [Lactate (Lactic Acid)] Stat Lab 07/15/24 11:56 Completed Lipase Stat Lab 07/15/24 11:56 Completed RSV [Respiratory Syncytial Virus Ag] Stat Lab 07/15/24 09:07 Completed Troponin I Stat Lab 07/15/24 08:38 Completed Albuterol/Ipratr Rt Shanta [Duoneb Rt Shanta] Med 07/15/24 09:13 Discontinued 3 ml INH X1 ONE Furosemide Inj [Lasix Inj] Med 07/15/24 08:17 Discontinued 80 mg IVP X1 ONE predniSONE Med 07/15/24 09:13 Discontinued 60 mg PO X1 ONE BiPAP / CPAP NOW RT 07/15/24 08:19 Active Vital Signs Vital signs: Vital Signs Temperature 97.6 F 07/15/24 08:23 Pulse Rate 130 H 07/15/24 08:23 Respiratory Rate 36 H 07/15/24 08:23 Blood Pressure 172/86 H 07/15/24 08:23 Pulse Oximetry (%) 89 L 07/15/24 08:23 Oxygen Delivery Method Room Air 07/15/24 08:23 [facility] Patient data External records reviewed:: [facility] previous records Clinical information provided by:: patient Social determinants that could affect healthcare access:: none Patient has the following chronic illnesses:: hx of insulin-dependent type 2 diabetes, HFrEF 20%, CAD s/p stent How is presenting disease/condition affected by chronic disease/condition?: caused by Evaluation data The following diagnostics were reviewed and interpreted by me:: lab results and EKG tracing(s) Lab and/or radiology exams considered but not ordered:: None Interpretation Summary: CXR shows bilateral interstial pneumonia, enlarged cardiac contour with prominent vascular congestion, osteopenia with old right-sided rib fractures Mild hyponatremia with sodium 127, Hypochloremia?chloride 92, hyperglycemia?glucose 329 hypoosmolar-- osmolality 268. Medications Medications considered but not ordered:: None Medication administrations:: Medication Administration History Acetaminophen (Acetaminophen 325 Mg Tablet) 650 mg PO Q6H PRN PRN Reason: Fever >101.5 Stop: 08/14/24 13:36 Acetaminophen (Acetaminophen 325 Mg Tablet) 650 mg PO Q6H PRN PRN Reason: PAIN SCALE 1-3 (mild Stop: 08/14/24 13:36 Albuterol/Ipratropium (Albuterol/Ipratropium (Duoneb) Rt Shanta 3 Ml Nebu) 3 ml INH Q6HRRT PALAK Stop: 08/14/24 18:59 Last Admin: 07/17/24 06:30 Dose: 3 ml Documented By: Admin: 07/17/24 00:22 Dose: 3 ml Documented By: Admin: 07/16/24 19:23 Dose: 3 ml Documented By: Admin: 07/16/24 13:27 Dose: 3 ml Documented By: Admin: 07/16/24 06:18 Dose: 3 ml Documented By: Admin: 07/16/24 01:10 Dose: 3 ml Documented By: Admin: 07/15/24 19:58 Dose: 3 ml Documented By: FAUSTINA Aspirin (Aspirin Ec 81 Mg Tabec) 81 mg PO QDAY [facility] Stop: 08/14/24 13:59 Last Admin: 07/16/24 08:33 Dose: 81 mg Documented By: Admin: 07/15/24 14:55 Dose: 81 mg Documented By: ISAK Atorvastatin Calcium (Atorvastatin Calcium 20 Mg Tablet) 40 mg PO HS [facility] Stop: 08/14/24 20:59 Last Admin: 07/16/24 21:22 Dose: 40 mg Documented By: Admin: 07/15/24 21:17 Dose: 40 mg Documented By: ANAMIKA Carvedilol (Carvedilol 3.125 Mg Tablet) 3.125 mg PO BIDWM [facility] Stop: 08/14/24 17:29 Last Admin: 07/16/24 17:55 Dose: Not Given Documented By: JULISA Non-Admin Reason: Vital Signs Dextrose (Dextrose 50%-Water Inj 50 Ml Syringe) 25 ml IV Q15MIN PRN PRN Reason: BG 50-70 responsive npo pt Stop: 08/14/24 13:51 Dextrose (Dextrose 50%-Water Inj 50 Ml Syringe) 50 ml IV Q15MIN PRN PRN Reason: BG <50 OR BG <70 & pt unresponsive Stop: 08/14/24 13:51 Finasteride (Finasteride 5 Mg Tablet) 5 mg PO QDAY [facility] Stop: 08/14/24 14:29 Last Admin: 07/16/24 08:33 Dose: 5 mg Documented By: Admin: 07/15/24 14:55 Dose: 5 mg Documented By: ISAK Furosemide (Furosemide 40 Mg Tablet) 40 mg PO QDAY [facility] Stop: 08/15/24 13:44 Last Admin: 07/16/24 15:34 Dose: 40 mg Documented By: JULISA Glucagon (Glucagon Inj 1 Mg Vial) 1 mg IM Q15MIN PRN PRN Reason: BG <70, and no IV access Glucagon (Glucagon Inj 1 Mg Vial) 1 mg IM Q15MIN PRN PRN Reason: BG <70, and no IV access Heparin Sodium (Porcine) (Heparin Sod Inj 5000 Unit/Ml Vial) 5,000 unit SC Q8HR [facility] Stop: 07/29/24 14:29 Last Admin: 07/17/24 05:24 Dose: 5,000 unit Documented By: ANAMIKA Co-signed By: Admin: 07/16/24 21:21 Dose: 5,000 unit Documented By: MRKike Co-signed By: RB Admin: 07/16/24 13:20 Dose: 5,000 unit Documented By: JULISA Co-signed By: NATE Admin: 07/16/24 05:22 Dose: 5,000 unit Documented By: MRKike Co-signed By: RL Admin: 07/15/24 21:19 Dose: 5,000 unit Documented By: MRKike Co-signed By: JAKE Admin: 07/15/24 14:57 Dose: 5,000 unit Documented By: ISAK Co-signed By: TM Insulin Glargine (Insulin Glargine (Lantus) 5 Unit/0.05 Ml (Per 5 Units)) 15 unit SC QDAY [facility] Stop: 08/16/24 08:59 Insulin Human Lispro (Insulin Lispro (Admelog) 1 Unit/0.01 Ml Unit) 0 unit SC ACHS [facility]; Protocol Stop: 08/14/24 16:59 Last Admin: 07/17/24 08:12 Dose: 1 unit Documented By: JOYCE Co-signed By: SENTHIL Admin: 07/16/24 21:19 Dose: 3 unit Documented By: MRKike Co-signed By: RB Admin: 07/16/24 16:41 Dose: 2 unit Documented By: JULISA Co-signed By: TAWNYA Admin: 07/16/24 11:54 Dose: 2 unit Documented By: JOYCE Co-signed By: SENTHIL Admin: 07/16/24 07:43 Dose: 2 unit Documented By: JOYCE Co-signed By: VS Admin: 07/15/24 21:18 Dose: 3 unit Documented By: MRKike Co-signed By: JAKE Admin: 07/15/24 17:18 Dose: 2 unit Documented By: MIKA Co-signed By: SAMIRA Ondansetron HCl (Ondansetron Inj 2 Mg/Ml Inj 2 Ml) 4 mg IV Q6H PRN; Protocol PRN Reason: NAUSEA OR VOMITING Stop: 08/14/24 13:36 Pantoprazole Sodium (Pantoprazole 40 Mg Tablet) 40 mg PO QDAY [facility] Stop: 08/15/24 14:14 Last Admin: 07/16/24 14:53 Dose: 40 mg Documented By: JULISA Sennosides (Senna Tablet) 1 tab PO QDAY PRN; Protocol PRN Reason: constipation Stop: 08/14/24 13:36 Spironolactone (Spironolactone 25 Mg Tablet) 25 mg PO QDAY [facility] Stop: 08/15/24 13:44 Tamsulosin HCl (Tamsulosin Hcl 0.4 Mg Capsule) 0.4 mg PO QDAY [facility] Stop: 08/14/24 13:59 Last Admin: 07/16/24 08:33 Dose: 0.4 mg Documented By: Admin: 07/15/24 14:55 Dose: 0.4 mg Documented By: VG Discontinued Medications Albuterol/Ipratropium (Albuterol/Ipratropium (Duoneb) Rt Shanta 3 Ml Nebu) 3 ml INH X1 ONE Stop: 07/15/24 09:14 Last Admin: 07/15/24 09:44 Dose: 3 ml Documented By: AIDE Carvedilol (Carvedilol 3.125 Mg Tablet) 3.125 mg PO BIDWM [facility] Stop: 08/14/24 17:29 Last Admin: 07/16/24 12:49 Dose: Not Given Documented By: CS Non-Admin Reason: Vital Signs Admin: 07/15/24 18:08 Dose: 3.125 mg Documented By: MIKA Furosemide (Furosemide Inj 10 Mg/Ml 4ml Vial) 80 mg IVP X1 ONE Stop: 07/15/24 08:18 Last Admin: 07/15/24 09:04 Dose: 80 mg Documented By: DO Furosemide (Furosemide Inj 10 Mg/Ml 4ml Vial) 40 mg IVP BIDD [facility] Stop: 08/14/24 17:59 Last Admin: 07/16/24 05:20 Dose: Not Given Documented By: MRG Non-Admin Reason: Vital Signs Admin: 07/15/24 18:10 Dose: 40 mg Documented By: VL Magnesium Sulfate (Magnesium Sulfate Ivpb) 4 gm in 50 mls @ 12.5 mls/hr IV X1 ONE Stop: 07/16/24 12:48 Last Infusion: 07/16/24 14:35 Dose: Infused Documented By: Admin: 07/16/24 10:35 Dose: 12.5 mls/hr Documented By: CS Insulin Glargine (Insulin Glargine (Lantus) 5 Unit/0.05 Ml (Per 5 Units)) 10 unit SC QDAY [facility] Stop: 08/14/24 14:29 Last Admin: 07/16/24 10:39 Dose: 10 unit Documented By: JULISA Co-signed By: JOCYE(2) Admin: 07/15/24 14:58 Dose: 10 unit Documented By: ISAK Co-signed By: TONI Lactulose (Lactulose Syrup 20 Gm/30 Ml Udc) 20 gm PO X1 ONE; Protocol Stop: 07/16/24 12:07 Last Admin: 07/16/24 13:20 Dose: 20 gm Documented By: CS Midodrine (Midodrine 5 Mg Tablet) 10 mg PO TID [facility]AK Stop: 08/15/24 13:59 Last Admin: 07/16/24 13:18 Dose: 10 mg Documented By: CS Potassium Chloride (Potassium Chloride 20 Meq Tabcr) 40 meq PO X1 ONE Stop: 07/16/24 08:49 Last Admin: 07/16/24 10:33 Dose: 40 meq Documented By: CS Prednisone (Prednisone 20 Mg Tablet) 60 mg PO X1 ONE Stop: 07/15/24 09:14 Last Admin: 07/15/24 10:17 Dose: 60 mg Documented By: DO Spironolactone (Spironolactone 25 Mg Tablet) 25 mg PO QDAY [facility] Stop: 08/15/24 13:44 Albuterol/ipratropium, furosemide, and prednisone Consultations Consultation(s) initiated? (list below): No Diagnosis Differential Diagnosis ED Complaint MDM: Hospital-acquired pneumonia Most likely diagnosis given after review of the tests above:: CHF exacerbation Admission Indicated Admission indicated?: indicated Explain why admission is indicated or not indicated:: Admission is indicated as patient desaturated to the 80s on room air prior to presentation in the ED, requiring Ambu bag. On amu-bag placed by EMS patient saturating at 89%. Patient required BiPAP for further stabilization. Patient was hemodynamically unstable. Patient is hemodynamically unstable on ED presentation with blood pressure 172/86, heart rate 130, respiratory rate 36, O2 sat 89%. EKG showed sinus tachy with HR 137. Once started on BiPAP, duonebs, and with 1 dose of Lasix, patient's oxygenation improved above 90%. Patient requires admission for management of CHF exacerbation versus likely underlying hospital-acquired pneumonia considering patient was recently discharged from hospital was presented with sick contacts during his recent hospitalization. Admission Request Was there a request for admission?: Yes Admission Attestation Admission request attestation: Discussed case with [] from Hospitalist service regarding admission. Discussed patients ED course, exam findings, labs, and radiology results. The Hospitalist [agrees,declines] to accept the patient for admission. Disposition Plan Disposition Plan: Admit Medical Decision Making MDM Narrative MDM Narrative: A pleasant indonesian speaking 79-year-old male with hx of insulin-dependent type 2 diabetes, HFrEF 20%, CAD s/p stent in October 2023 presented to ED of [facility] on 07/15/2024 for chief complaints off SOB and left lower quadrant abdominal pain. He was recently admitted for CHF exacerbation and diverticulitis on 07/11, discharged on 07/14/2024. On ED presentation, patient is hemodynamically unstable on ED presentation with blood pressure 172/86, heart rate 130, respiratory rate 36, O2 sat 89%. EKG showed sinus tachy with HR 137. Once started on BiPAP, duonebs, and with 1 dose of Lasix, patient's oxygenation improved above 90%. Patient needs aggressive diuresis over the next 1-2 days followed by follow up with cardiology in outpatient setting. Considering patient also does have a cough, generalized weakness, and mucus production from the naris indicative of infection, patient requires management of possible hospital-acquired pneumonia. Patient requires admission for management of CHF exacerbation versus likely underlying hospital-acquired pneumonia considering patient was recently discharged from hospital was presented with sick contacts during his recent hospitalization. Differential Diagnosis Differential Diagnosis: Hospital-acquired pneumonia Lab Data 07/17/24 04:50 07/17/24 04:50 Labs: Lab Results 07/15/24 07/15/24 07/15/24 Range/Units 08:38 09:07 11:56 WBC 9.4 D (3.8-10.6) Thou/mm3 RBC 3.40 L (4.50-5.90) Miln/mm3 Hgb 10.8 L (13.5-16.0) g/dL Hct 31.0 L (41.0-53.0) % MCV 91 (80-100) fL MCH 31.8 (25.0-35.0) pg MCHC 34.8 (31.0-37.0) g/dl RDW Std Deviation 43.1 (35.1-43.9) fL Plt Count 323 D (140-440) Thou/mm3 Neut % (Auto) 75 (37-80) % Lymph % (Auto) 16 (10-50) % [place] % (Auto) 7 (0-12) % Eos % (Auto) 1 (0-10) % Baso % (Auto) 0 (0-2.5) % Neut # (Auto) 7.1 (1.8-7.7) Thou/mm3 Lymph # (Auto) 1.5 (1.0-4.8) Thou/mm3 [place] # (Auto) 0.7 (0.0-0.8) Thou/mm3 Eos # (Auto) 0.1 (0.0-0.5) Thou/mm3 Baso # (Auto) 0.0 (0.0-0.2) Thou/mm3 Immature Gran # (Auto) 0.06 H (0.00-0.00) Thou/mm3 Absolute Nucleated RBC 0.00 (0.00-0.00) Thou/mm3 Immature Gran % 1 H (0-0) % Nucleated RBC % 0 (0) /100 WBC Sodium 127 L (136-145) mMol/L Potassium 4.5 (3.4-5.1) mMol/L Chloride 92 L (98-107) mMol/L Carbon Dioxide 22.8 (20.0-31.0) mMol/L Anion Gap 12 (7-16) BUN 13 (9-23) mg/dL Creatinine 1.0 (0.6-1.3) mg/dL Estim Creat Clear Calc 51.0 L (>60) mL/min eGFR > 60 (60 - ) See Note BUN/Creatinine Ratio 13 (12-20) Ratio Glucose 329 H D (74-106) mg/dL Calculated Osmolality 268 L (275-295) Lactic Acid 1.3 (0.4-2.0) mMol/L Calcium 8.9 (8.3-10.6) mg/dL Corrected Calcium 8.9 (8.5-10.1) mg/dL Total Bilirubin 0.6 (0.3-1.2) mg/dL AST 53 H (0-34) U/L ALT 43 (10-49) U/L Alkaline Phosphatase 132 H D (46-116) U/L Troponin I < 0.020 (0.0-0.045) ng/mL Total Protein 8.1 (5.7-8.2) gm/dL Albumin 4.6 D (3.4-4.8) gm/dL Globulin 3.5 (2.3-3.5) gm/dL Albumin/Globulin Ratio 1.3 (1.2-2.2) Lipase 38 (12-53) U/L RSV Rapid Negative (Negative) Discharge Plan Plan Patient Disposition: Admit Acute Care w/in Hospital Problem List Clinical Impression: CHF (congestive heart failure), Acute respiratory failure MD Attestation MD Attestation The patient was seen by the PGY-2. I, the supervising physician, also encountered and examined the patient while remaining present during the entire ER visit. I was available for consultation as needed. Working with the PGY 2, management, treatment plan, and documentation were formulated. I agree with the plan and documentation.
[2024-07-15] MEDS: ALBUTEROL/IPRATROPIUM (Duoneb) RT SOL 3 ML NEBU INH ×2 (09:44→19:58)
--- NOTE | 2024-07-15 10:05 | PC.NURSE ---
urinal drained. 450ml noted
[2024-07-15] MEDS: predniSONE 20 MG TABLET 60 MG PO (10:17)
[2024-07-15 10:20] LABS: Respiratory Syncytial Virus Ag Negative (Negative)
[2024-07-15 10:35] LABS: Alanine Aminotransferase 43 U/L (10-49); Albumin, Serum 4.6 gm/dL (3.4-4.8); Albumin/Globulin Ratio 1.3 (1.2-2.2); Alkaline Phosphatase 132 U/L (46-116); Anion Gap 12 (7-16); Aspartate Amino Transferase 53 U/L (0-34); BUN/Creatinine Ratio 13 Ratio (12-20); Bilirubin,Total 0.6 mg/dL (0.3-1.2); Blood Urea Nitrogen 13 mg/dL (9-23); Calcium 8.9 mg/dL (8.3-10.6); Calcium (Corrected) 8.9 mg/dL (8.5-10.1); Carbon Dioxide 22.8 mMol/L (20.0-31.0); Chloride 92 mMol/L (98-107); Globulin 3.5 gm/dL (2.3-3.5); Glucose 329 mg/dL (74-106); Osmolality,Calculated 268 (275-295); Potassium 4.5 mMol/L (3.4-5.1); Sodium 127 mMol/L (136-145); Total Protein 8.1 gm/dL (5.7-8.2); Troponin I < 0.020 ng/mL (0.0-0.045); eGFR > 60 See Note
--- NOTE | 2024-07-15 11:00 | PC.NURSE ---
urinal drained at this time. 200ml noted. pt accidentally spilled urine on sheet. pt cleaned up and new sheet and brief applied
[2024-07-15 12:06] LABS: Lactate (Lactic Acid) 1.3 mMol/L (0.4-2.0)
[2024-07-15 12:32] LABS: Lipase 38 U/L (12-53)
--- NOTE | 2024-07-15 13:04 | PC.NURSE ---
urinal drained. 800ml output noted
--- NOTE | 2024-07-15 14:23 | ESHP_ITS ---
<Statement entered by Rylie Farias MD - 07/20/24 12:44> I reviewed above note and agree with findings and plans. I have also personally examined the patient with medicine team and went over assessment and plan with medical team including internship coordinator and resident physician. Documentation for date of: 07/15/24 HPI History of Present Illness Chief complaint: Shortness of breath History of present illness: 79 y/o M with PMHx of HFrEF 20%,s/p pacemaker, CAD s/p stents (October 2023), diabetes type 2, and recent hospitalization for CHF exacerbation and diverticulitis (discharged 07/14/2024) presented to the ED due to increased shortness of breath without exertion. Patient states that he woke up during the night with dyspnea, even with reclining the bed with pillows, as well as cough with minimal whitish phlegm. Patient also stated feeling some chest pressure. He denies any fever, chills, chest pain, swelling, abdominal pain, nausea, vomiting. Admitted for observation due to acute hypoxic respiratory failure secondary to acute on ch decompensated heart failure ED course: Vitals on arrival significant for hypertension 172/86, tachycardia 130, tachypnea 36, saturating at 89%, EKG showed Left bundle branch block and some PVCs, CXR showed some vascular congestion. In the ED patient was given Lasix, prednisone and duo nebs PMHx: CAD, HTN, Diabetes, PSxHx:stents, pacemaker Social:denies smoking, denies alcohol or drug use Review of Systems Review of Systems Narrative Review of Systems: Narrative ROS GENERAL: Denies fevers/chills or diaphoresis. HEENT: Denies headache or visual/hearing changes. Denies nasal discharge. NEURO: Denies unusual weakness or difficulty speaking. CARDIO: Denies chest pain or palpitations, + chest pressure PULM: + SOB, coughing GI: Denies abdominal pain, N/V/C/D/reflux/gas, bright red blood per rectum or melena. Reports having BMs. URO: Denies burning/itching/pain/urinary changes. MSK/EXT/SKIN: Denies joint/skeletal/muscle pain, issues/changes in upper or lower extremities, itchiness, or superficial pain. PSYCH: Cooperative, pleasant mood & affect. The rest of the review of systems is otherwise negative. Exam Vital Signs Temp Pulse Resp BP Pulse Ox O2 Del Method FiO2 97.2 F 79 20 113/70 100 Room Air 30 07/15/24 12:22 07/15/24 12:22 07/15/24 12:22 07/15/24 12:22 07/15/24 12:22 07/15/24 08:23 07/15/24 09:48 Narrative Exam Physical Exam GENERAL: NAD, NC/AT, responsive/cooperative. AAOx3, on BiPAP HEENT: Moist mucosa. Eyes open, symmetrical, & clear CARDIO: +chest pressure. Heart RRR, no obvious murmurs PULM: +coughing/dyspnea. Lungs CTA B/L, no R/W/R GI: Abdomen soft, nondistended, no pain on palpation. BSx4 URO/DEFECTIVE CIGARETTE SLITTER:: No further abnormalities noted. SKIN/MSK/EXT: No wounds/rashes/edema/amputations, no pain on palpation. Pedal pulses present B/L NEURO: AAOx3, no focal neuro deficits Results: Labs 07/16/24 04:35 07/16/24 04:35 Labs: Short CBC 07/15/24 Range/Units 08:38 WBC 9.4 D (3.8-10.6) Thou/mm3 Hgb 10.8 L (13.5-16.0) g/dL Hct 31.0 L (41.0-53.0) % Plt Count 323 D (140-440) Thou/mm3 BMP 07/15/24 08:38 Sodium 127 L Potassium 4.5 Chloride 92 L Carbon Dioxide 22.8 BUN 13 Creatinine 1.0 Glucose 329 H D Calcium 8.9 Cardiac Enzymes 07/15/24 Range/Units 08:38 Troponin I < 0.020 (0.0-0.045) ng/mL Liver Function 07/15/24 Range/Units 08:38 Total Bilirubin 0.6 (0.3-1.2) mg/dL AST 53 H (0-34) U/L ALT 43 (10-49) U/L Alkaline Phosphatase 132 H D (46-116) U/L Albumin 4.6 D (3.4-4.8) gm/dL Quality Measures Quality Measures none Advance care planning discussed with:: patient Medications Home Medications and Allergies Home Medications ?Medication ?Instructions ?Recorded ?Confirmed ?Type metformin 500 mg tablet 1,000 mg PO BID 01/22/20 07/15/24 History aspirin 81 mg capsule 81 mg PO DAILY 10/22/23 07/15/24 History atorvastatin 40 mg tablet 40 mg PO QPM 10/22/23 07/15/24 History carvedilol 3.125 mg tablet 3.125 mg PO BID 10/22/23 07/15/24 History spironolactone 25 mg tablet 25 mg PO DAILY 10/22/23 07/15/24 History Allergies Allergy/AdvReac Type Severity Reaction Status Date / Time No Known Allergies Allergy Verified 07/15/24 08:52 Visit Medications Acetaminophen (Acetaminophen 325 Mg Tablet) 650 mg PO Q6H PRN PRN Reason: Fever >101.5 Stop: 08/14/24 13:36 Acetaminophen (Acetaminophen 325 Mg Tablet) 650 mg PO Q6H PRN PRN Reason: PAIN SCALE 1-3 (mild Stop: 08/14/24 13:36 Albuterol/Ipratropium (Albuterol/Ipratropium (Duoneb) Rt Shanta 3 Ml Nebu) 3 ml INH Q6HRRT [facility] Stop: 08/14/24 18:59 Aspirin (Aspirin Ec 81 Mg Tabec) 81 mg PO QDAY [facility] Stop: 08/14/24 13:59 Atorvastatin Calcium (Atorvastatin Calcium 20 Mg Tablet) 40 mg PO HS [facility] Stop: 08/14/24 20:59 Carvedilol (Carvedilol 3.125 Mg Tablet) 3.125 mg PO BIDWM [facility] Stop: 08/14/24 17:29 Dextrose (Dextrose 50%-Water Inj 50 Ml Syringe) 25 ml IV Q15MIN PRN PRN Reason: BG 50-70 responsive npo pt Stop: 08/14/24 13:51 Dextrose (Dextrose 50%-Water Inj 50 Ml Syringe) 50 ml IV Q15MIN PRN PRN Reason: BG <50 OR BG <70 & pt unresponsive Stop: 08/14/24 13:51 Finasteride (Finasteride 5 Mg Tablet) 5 mg PO QDAY [facility] Stop: 08/14/24 14:29 Furosemide (Furosemide Inj 10 Mg/Ml 4ml Vial) 40 mg IVP BIDD [facility] Stop: 08/14/24 17:59 Glucagon (Glucagon Inj 1 Mg Vial) 1 mg IM Q15MIN PRN PRN Reason: BG <70, and no IV access Glucagon (Glucagon Inj 1 Mg Vial) 1 mg IM Q15MIN PRN PRN Reason: BG <70, and no IV access Heparin Sodium (Porcine) (Heparin Sod Inj 5000 Unit/Ml Vial) 5,000 unit SC Q8HR [facility] Stop: 07/29/24 14:29 Insulin Glargine (Insulin Glargine (Lantus) 5 Unit/0.05 Ml (Per 5 Units)) 10 unit SC QDAY [facility] Stop: 08/14/24 14:29 Insulin Human Lispro (Insulin Lispro (Admelog) 1 Unit/0.01 Ml Unit) 0 unit SC ACHS [facility]; Protocol Stop: 08/14/24 16:59 Ondansetron HCl (Ondansetron Inj 2 Mg/Ml Inj 2 Ml) 4 mg IV Q6H PRN; Protocol PRN Reason: NAUSEA OR VOMITING Stop: 08/14/24 13:36 Sennosides (Senna Tablet) 1 tab PO QDAY PRN; Protocol PRN Reason: constipation Stop: 08/14/24 13:36 Tamsulosin HCl (Tamsulosin Hcl 0.4 Mg Capsule) 0.4 mg PO QDAY [facility] Stop: 08/14/24 13:59 Discontinued Medications Albuterol/Ipratropium (Albuterol/Ipratropium (Duoneb) Rt Shanta 3 Ml Nebu) 3 ml INH X1 ONE Stop: 07/15/24 09:14 Last Admin: 07/15/24 09:44 Dose: 3 ml Furosemide (Furosemide Inj 10 Mg/Ml 4ml Vial) 80 mg IVP X1 ONE Stop: 07/15/24 08:18 Last Admin: 07/15/24 09:04 Dose: 80 mg Prednisone (Prednisone 20 Mg Tablet) 60 mg PO X1 ONE Stop: 07/15/24 09:14 Last Admin: 07/15/24 10:17 Dose: 60 mg Assessment & Plan Plan 79 y/o M with PMHx of CAD s/p stents, HFrEF 20%, s/p pacemaker, with recent hospitalization for CHF exacerbation and diverticulitis. Admitted due to Acute hypoxic respiratory failure secondary to acute on chronic heartfailure exacerbation. #Acute Hypoxic respiratory failure possibly secondary to #Acute on chronic decompensated heart failure #History of HFrEF, 20-25% Other differentials include Pulmonary embolism, Pneumonia Patient was recently discharged from hospital for acute decompensated heart failure Patient endorses orthopnea and paroxysmal nocturnal dyspnea, however on physical exam patient looks dry, no peripheral edema noted, nor crackles on auscultation BNP elevated in the 1000s Pneumonia seems unlikely as patient has no fever, wbc count Patient arrived to the hospital with saturations in the 80s and required to be on ambubag. Was placed on BiPAP and is tolerating well with saturation 90-100 and after lasix 80mg given in ED D-Dimers found somewhat elevated, Wells score: 1.5; low risk for PE Echo showed:Dilated LV. Akinesis anterior septal wall. Severe hypokinesis lateral wall. Estimated EF 20-25% Normal RV size and function. Pacing wire present. Moderate LA dilation. Mild AV sclerosis without stenosis. Moderate MR, AI. Mild TR. IVC dilated. - continue on BiPAP, wean as tolerated - on Lasix 40mg IV BID - on carvedilol 3.125mg BID - will resume rest of goal directed medical therapy as BP permits - Strict I&Os - Daily weights - fluid restriction - f/u ABGs - Keep K>4, Mg>2 #Hypoosmolar Hyponatremia sodium found to be 127 with osmolality 268 likely in setting of 3rd spacing from volume overload vs diuretics - fluid restriction - monitor Na lvls #History type 2 diabetes last A1C 9.8 - sliding scale insulin - hypoglycemic protocol in place #History CAD S/P stents ?Start aspirin 81 mg daily ?Atorvastatin 40 mg p.o. daily Case discussed with my senior Dr. Nicolas PGY-[address] Dinora Yeung MD PGY-1 Disposition: tele, observation Fluids: None Feeding: Carb consistent Thrombo prophylaxis: Heparin Gastric Ulcer prophylaxis: none CODE STATUS: Full code Senior resident attestation: I discussed with and supervised the internship coordinator physician who took care of this patient. I personally saw and examined the patient and discussed the assessment and plan with the entire medicine team, including my attending Dr. Farias , I agree with the assessment and plan as documented above. Patient is a 79-year-old male past medical history of CAD s/p PCI, HFrEF status post AICD, recently discharged from hospital yesterday for diverticulitis and CHF exacerbation. Presented to ER with acute shortness of breath and orthopnea starting last night. Denied fever. Patient admitted to the hospital for AHRF secondary to CHF exacerbation. #Acute hypoxic respiratory failure #Acute on chronic CHF?initially on BiPAP, IV Lasix 80 mg was given, patient's clinical condition improved, later saturating well on nasal cannula oxygen. Continue with IV diuresis, will hold off on spironolactone and Entresto, continue with low-dose beta-enedelia, holding parameters in place. #Concern for GI bleed: Melena reported by son, patient has not had a bowel movement last 2 days but reported dark stools previously, noted anemia, dropping hemoglobin since admission, in setting of soft blood pressure, will proceed with GI evaluation for GI bleed, Dr. Francis consulted. #Hypoosmolar hyponatremia: In the setting of diuresis, continue fluid restriction. MD Fidencio PGY2
[2024-07-15 14:35] LABS: D-Dimer 1020 ng/mL (<600)
[2024-07-15 14:51] LABS: Troponin I 0.028 ng/mL (0.0-0.045)
[2024-07-15] MEDS: TAMSULOSIN HCL 0.4 MG CAPSULE PO (14:55)
[2024-07-15] MEDS: ASPIRIN EC 81 MG TABEC PO (14:55)
[2024-07-15] MEDS: FINASTERIDE 5 MG TABLET PO (14:55)
[2024-07-15] MEDS: HEPARIN SOD INJ 5000 UNIT/ML VIAL SC ×2 (14:57→21:19)
[2024-07-15] MEDS: INSULIN GLARGINE (Lantus) 5 UNIT/0.05 ML (PER 5 UNITS) 10 UNIT SC (14:58)
--- NOTE | 2024-07-15 15:15 | PC.NURSE ---
REPORT GIVEN TO BELINDA ON MED/TELE FLOOR. PT TO GO TO ROOM 357
--- NOTE | 2024-07-15 15:44 | PC.NURSE ---
Patient arrived to unit from ER via [facility] at 1543. Patient transferred from [facility] to bed with assistance. No c/o pain or discomfort. No SOB reported, pt sating at 98% on oxygen 3L via NC. Patient made comfortable in bed, call light and personal belongings placed within reach. Nursing care assumed at this time.
[2024-07-15 16:24] LABS: Base Excess, Venous 5 (-3-3); O2 Saturation, Venous 98 % (96-97); PCO2, Venous 30 mmHg (36-56); PO2, Venous 77 mmHg (15-58); pH, Venous 7.56 (7.33-7.66)
[2024-07-15 17:01] LABS: B-Type Natriuretic Peptide 1374 pg/mL (0-100)
[2024-07-15] MEDS: INSULIN LISPRO (AdmeLOG) 1 UNIT/0.01 ML UNIT SC ×2 (17:18→21:18)
--- NOTE | 2024-07-15 18:04 | PC.CC ---
Pt Zach Garcia is a 79 yr old male, admitted to hospitalist services for acute hypoxic respiratory failure. CRANIOLOGIST CC met with pt at bedside to complete initial assessment. At time of encounter pt is noted to be alert and oriented to person, place and situation. Pt expressed understanding admission orders and is agreement with treatment plan. Pt able to confirm all demographic information. Pt is from home [address] [place]. Pt reports living in the home with his Karina Garcia [phone]. Pt identifies his a surrogate DM. In the home pt reports being independent with ambulation and completion of his ADLs. In the ED pt is on BiPAP-per pt he does not require supplemental O2 at baseline. Pt is diabetic on oral medication for management. Pt is not on dialysis. Pt is followed by [facility] in [place] for primary care. At time of D/c pt states he would like to return home. Pt unable to specify if family will be able to transport him. Pt may need transport home if family is unable to transport. Pt may need O2 road test for O2 needs upon D/c.
[2024-07-15] MEDS: carVEDILOL 3.125 MG TABLET PO (18:08)
[2024-07-15] MEDS: FUROSEMIDE INJ 10 MG/ML 4ML VIAL 40 MG IVP (18:10)
[2024-07-15] MEDS: ATORVASTATIN CALCIUM 20 MG TABLET 40 MG PO (21:17)
[2024-07-16] VITALS (19 sets, daily range): BP systolic 81–100; BP diastolic 45–65; PULSE 73–111; RESP 17–90; TEMP 36.1–37.1; O2SAT 92–99
[2024-07-16] MEDS: ALBUTEROL/IPRATROPIUM (Duoneb) RT SOL 3 ML NEBU INH ×4 (01:10→19:23)
[2024-07-16] MEDS: HEPARIN SOD INJ 5000 UNIT/ML VIAL SC ×3 (05:22→21:21)
[2024-07-16 06:16] LABS: Basophils % (Auto) 0 % (0-2.5); Eosinophils % (Auto) 0 % (0-10); Hematocrit 27.9 % (41.0-53.0); Hemoglobin 9.8 g/dL (13.5-16.0); Immature Granulocytes % (Auto) 1 % (0-0); Immature Granulocytes Auto 0.05 Thou/mm3 (0.00-0.00); Lymphocytes % (Auto) 14 % (10-50); Mean Corpuscular HGB Conc 35.1 g/dl (31.0-37.0); Mean Corpuscular Hemoglobin 31.7 pg (25.0-35.0); Mean Corpuscular Volume 90 fL (80-100); Monocytes # (Auto) 0.8 Thou/mm3 (0.0-0.8); Monocytes % (Auto) 10 % (0-12); Neutrophils # (Auto) 5.7 Thou/mm3 (1.8-7.7); Neutrophils % (Auto) 76 % (37-80); Nucleated Red Blood Cell % 0 /100 WBC (0); Platelet Count 263 Thou/mm3 (140-440); RDW Standard Deviation 43.2 fL (35.1-43.9); Red Blood Count 3.09 Miln/mm3 (4.50-5.90); White Blood Count 7.6 Thou/mm3 (3.8-10.6)
[2024-07-16 06:52] LABS: Alanine Aminotransferase 30 U/L (10-49); Albumin, Serum 4.1 gm/dL (3.4-4.8); Albumin/Globulin Ratio 1.4 (1.2-2.2); Alkaline Phosphatase 97 U/L (46-116); Anion Gap 8 (7-16); Aspartate Amino Transferase 28 U/L (0-34); BUN/Creatinine Ratio 24 Ratio (12-20); Bilirubin,Total 0.6 mg/dL (0.3-1.2); Blood Urea Nitrogen 19 mg/dL (9-23); Calcium 8.7 mg/dL (8.3-10.6); Calcium (Corrected) 8.7 mg/dL (8.5-10.1); Carbon Dioxide 27.8 mMol/L (20.0-31.0); Chloride 92 mMol/L (98-107); Creatinine (Component) 0.8 mg/dL (0.6-1.3); Estimated Creatinine Clearance 63.7 mL/min (>60); Globulin 2.9 gm/dL (2.3-3.5); Glucose 232 mg/dL (74-106); Magnesium 1.7 mg/dL (1.6-2.6); Osmolality,Calculated 266 (275-295); Phosphorous 3.4 mg/dL (2.4-5.1); Potassium 3.7 mMol/L (3.4-5.1); Sodium 128 mMol/L (136-145); eGFR > 60 See Note
[2024-07-16] MEDS: INSULIN LISPRO (AdmeLOG) 1 UNIT/0.01 ML UNIT SC ×4 (07:43→21:19)
[2024-07-16] MEDS: ASPIRIN EC 81 MG TABEC PO (08:33)
[2024-07-16] MEDS: TAMSULOSIN HCL 0.4 MG CAPSULE PO (08:33)
[2024-07-16] MEDS: FINASTERIDE 5 MG TABLET PO (08:33)
--- NOTE | 2024-07-16 08:51 | XR_ITS ---
Examination: AP chest single view Technique one AP portable semiupright chest single view Exam date and time: July 16, 2024 0923 hours Comparison July 15, 2024 INDICATIONS: Acute hypoxic respiratory failure FINDINGS: Bilateral lung opacity consistent with pneumonia improved compared with the prior study No significant cardiac enlargement Cardiac leads satisfactory position IMPRESSION: Improvement in bilateral pneumonia
--- NOTE | 2024-07-16 09:29 | ESPR_ITS ---
Documentation for date of: 07/16/24 Subjective Subjective Interval history: Patient seen today at the bedside found awake, alert, orientedx3. Overnight patients blood pressure was <100SBP and lasix was held. States no complaints at this time. Vitals signs significant for soft blood pressure, currently saturating adequately at 98% on 3L NC. Labs significant for Hg drop 10.8-->9.8, FOBT was ordered and GI was consulted, as patient also states his last bowel movements were dark. Cardiology was consulted and recommended switching his lasix from IV to PO and resume his spironolactone. Patient has hx of prostatomegaly ordered bladder scan, currently on tamsulosin and finasteride. Exam Vital Signs Temp Pulse Resp BP Pulse Ox O2 Del Method O2 Flow Rate 98.6 F 77 18 94/45 L 95 Nasal Cannula 2 07/16/24 08:00 07/16/24 08:00 07/16/24 08:00 07/16/24 08:00 07/16/24 08:00 07/16/24 08:00 07/16/24 08:00 FiO2 30 07/15/24 16:00 Narrative Exam Physical Exam GENERAL: NAD, responsive/cooperative. AAOx3, on NC HEENT: Eyes open, symmetrical, & clear CARDIO: No chest pressure. Heart RRR, no obvious murmurs PULM: denies coughing/dyspnea. Lungs B/L crackles- improving GI: Abdomen soft, nondistended, no pain on palpation. BSx4 URO/TAR AND AMMONIA PUMP OPERATOR:: No further abnormalities noted. SKIN/MSK/EXT: No wounds/rashes/edema/amputations, no pain on palpation. Pedal pulses present B/L NEURO: AAOx3, no focal neuro deficits Objective Labs 07/17/24 04:50 07/17/24 04:50 Labs: Laboratory Results - last 24 hr 07/15/24 07/15/24 07/15/24 08:38 09:07 11:56 WBC RBC Hgb Hct MCV MCH MCHC RDW Std Deviation Plt Count Neut % (Auto) Lymph % (Auto) [place] % (Auto) Eos % (Auto) Baso % (Auto) Neut # (Auto) Lymph # (Auto) [place] # (Auto) Eos # (Auto) Baso # (Auto) Immature Gran # (Auto) Absolute Nucleated RBC Immature Gran % Nucleated RBC % D-Dimer VBG pH VBG pCO2 VBG pO2 VBG O2 Sat (Bibi) VBG Base Excess Sodium 127 L Potassium 4.5 Chloride 92 L Carbon Dioxide 22.8 Anion Gap 12 BUN 13 Creatinine 1.0 Estim Creat Clear Calc 51.0 L eGFR > 60 BUN/Creatinine Ratio 13 Glucose 329 H D Calculated Osmolality 268 L Lactic Acid 1.3 Calcium 8.9 Corrected Calcium 8.9 Phosphorus Magnesium Total Bilirubin 0.6 AST 53 H ALT 43 Alkaline Phosphatase 132 H D Troponin I < 0.020 B-Natriuretic Peptide Total Protein 8.1 Albumin 4.6 D Globulin 3.5 Albumin/Globulin Ratio 1.3 Lipase 38 RSV Rapid Negative 07/15/24 07/15/24 07/16/24 14:14 16:01 04:35 WBC 7.6 RBC 3.09 L Hgb 9.8 L Hct 27.9 L MCV 90 MCH 31.7 MCHC 35.1 RDW Std Deviation 43.2 Plt Count 263 D Neut % (Auto) 76 Lymph % (Auto) 14 [place] % (Auto) 10 Eos % (Auto) 0 Baso % (Auto) 0 Neut # (Auto) 5.7 Lymph # (Auto) 1.0 [place] # (Auto) 0.8 Eos # (Auto) 0.0 Baso # (Auto) 0.0 Immature Gran # (Auto) 0.05 H Absolute Nucleated RBC 0.00 Immature Gran % 1 H Nucleated RBC % 0 D-Dimer 1020 H VBG pH 7.56 VBG pCO2 30 L VBG pO2 77 H VBG O2 Sat (Bibi) 98 H VBG Base Excess 5 H Sodium 128 L Potassium 3.7 D Chloride 92 L Carbon Dioxide 27.8 Anion Gap 8 BUN 19 Creatinine 0.8 Estim Creat Clear Calc 63.7 eGFR > 60 BUN/Creatinine Ratio 24 H Glucose 232 H D Calculated Osmolality 266 L Lactic Acid Calcium 8.7 Corrected Calcium 8.7 Phosphorus 3.4 Magnesium 1.7 Total Bilirubin 0.6 AST 28 ALT 30 Alkaline Phosphatase 97 D Troponin I 0.028 B-Natriuretic Peptide 1374 H* Total Protein 7.0 Albumin 4.1 D Globulin 2.9 Albumin/Globulin Ratio 1.4 Lipase RSV Rapid ABG Interpretation ABG results: 07/15/24 16:01 VBG pH 7.56 VBG pCO2 30 L VBG pO2 77 H VBG Base Excess 5 H Quality Measures Quality Measures none Advance care planning discussed with:: patient Assessment & Plan Assessment Current Active Medications: Generic Name Dose Route Start Last Admin Trade Name Freq PRN Reason Stop Dose Admin Acetaminophen 650 mg 07/15/24 13:37 Acetaminophen 325 Mg Tablet PO 08/14/24 13:36 Q6H PRN Fever >101.5 Acetaminophen 650 mg 07/15/24 13:37 Acetaminophen 325 Mg Tablet PO 08/14/24 13:36 Q6H PRN PAIN SCALE 1-3 (mild Albuterol/Ipratropium 3 ml 07/15/24 19:00 07/16/24 06:18 Albuterol/Ipratropium (Duoneb) Rt Shanta 3 Ml Nebu INH 08/14/24 18:59 3 ml Q6HRRT PALAK Administration Aspirin 81 mg 07/15/24 14:00 07/16/24 08:33 Aspirin Ec 81 Mg Tabec PO 08/14/24 13:59 81 mg QDAY PALAK Administration Atorvastatin Calcium 40 mg 07/15/24 21:00 07/15/24 21:17 Atorvastatin Calcium 20 Mg Tablet PO 08/14/24 20:59 40 mg HS PALAK Administration Carvedilol 3.125 mg 07/15/24 17:30 07/15/24 18:08 Carvedilol 3.125 Mg Tablet PO 08/14/24 17:29 3.125 mg BIDWM PALAK Administration Dextrose 25 ml 07/15/24 13:52 Dextrose 50%-Water Inj 50 Ml Syringe IV 08/14/24 13:51 Q15MIN PRN BG 50-70 responsive npo pt Dextrose 50 ml 07/15/24 13:52 Dextrose 50%-Water Inj 50 Ml Syringe IV 08/14/24 13:51 Q15MIN PRN BG <50 OR BG <70 & pt unresponsive Finasteride 5 mg 07/15/24 14:30 07/16/24 08:33 Finasteride 5 Mg Tablet PO 08/14/24 14:29 5 mg QDAY APLAK Administration Furosemide 40 mg 07/15/24 18:00 07/16/24 05:20 Furosemide Inj 10 Mg/Ml 4ml Vial IVP 08/14/24 17:59 Not Given BIDD PALAK Glucagon 1 mg 07/15/24 13:52 Glucagon Inj 1 Mg Vial IM Q15MIN PRN BG <70, and no IV access Glucagon 1 mg 07/15/24 14:18 Glucagon Inj 1 Mg Vial IM Q15MIN PRN BG <70, and no IV access Heparin Sodium (Porcine) 5,000 unit 07/15/24 14:30 07/16/24 05:22 Heparin Sod Inj 5000 Unit/Ml Vial SC 07/29/24 14:29 5,000 unit Q8HR PALAK Administration Magnesium Sulfate 4 gm in 50 mls @ 12.5 mls/hr 07/16/24 08:49 Magnesium Sulfate Ivpb IV 07/16/24 12:48 X1 ONE Insulin Glargine 10 unit 07/15/24 14:30 07/15/24 14:58 Insulin Glargine (Lantus) 5 Unit/0.05 Ml (Per 5 Units) SC 08/14/24 14:29 10 unit QDAY PALAK Administration Insulin Human Lispro 0 unit 07/15/24 17:00 07/16/24 07:43 Insulin Lispro (Admelog) 1 Unit/0.01 Ml Unit SC 08/14/24 16:59 2 unit ACHS PALAK Administration Protocol Ondansetron HCl 4 mg 07/15/24 13:37 Ondansetron Inj 2 Mg/Ml Inj 2 Ml IV 08/14/24 13:36 Q6H PRN NAUSEA OR VOMITING Protocol Sennosides 1 tab 07/15/24 13:37 Senna Tablet PO 08/14/24 13:36 QDAY PRN constipation Protocol Tamsulosin HCl 0.4 mg 07/15/24 14:00 07/16/24 08:33 Tamsulosin Hcl 0.4 Mg Capsule PO 08/14/24 13:59 0.4 mg QDAY PALAK Administration Plan 79 y/o M with PMHx of CAD s/p stents, HFrEF 20%, s/p pacemaker, with recent hospitalization for CHF exacerbation and diverticulitis. Admitted due to Acute hypoxic respiratory failure secondary to acute on chronic heartfailure exacerbation. #Acute Hypoxic respiratory failure possibly secondary to #Acute on chronic decompensated heart failure #History of HFrEF, 20-25% Other differentials include Pulmonary embolism, Pneumonia Patient was recently discharged from hospital for acute decompensated heart failure Patient endorses orthopnea and paroxysmal nocturnal dyspnea, however on physical exam patient looks dry, no peripheral edema noted, nor crackles on auscultation BNP elevated in the 1000s Pneumonia seems unlikely as patient has no fever, wbc count Patient arrived to the hospital with saturations in the 80s and required to be on ambubag. Was placed on BiPAP and is tolerating well with saturation 90-100 and after lasix 80mg given in ED D-Dimers found somewhat elevated, Wells score: 1.5; low risk for PE Echo showed:Dilated LV. Akinesis anterior septal wall. Severe hypokinesis lateral wall. Estimated EF 20-25% Normal RV size and function. Pacing wire present. Moderate LA dilation. Mild AV sclerosis without stenosis. Moderate MR, AI. Mild TR. IVC dilated. Patient currently on NC with adequate oxygenation. BP has been soft, started on midodrine 10mg tid to permit for more diuresis, consulted cardiology, Dr. Mathur, recommends transition from IV Lasix back to patients PO home dose, as well as resume patients spironolactone. SBP>80 is acceptable per cardiology as long as patient has no symptoms. - on Lasix 40mg PO qday - on carvedilol 3.125mg BID - on spironolactone 25mg qday - D/C midodrine - will resume rest of goal directed medical therapy as BP permits - Strict I&Os - Daily weights - fluid restriction - Cardiology, Dr. aMthur on case, appreciate recommendations - Keep K>4, Mg>2 #Suspected GI bleed patient today had significant drop in Hg Patient also states that his last bowel movement 2x days ago was dark in color FOBT was ordered -Dr. Francis, GI was consulted, appreciate recommendations -f/u FOBT #Hypoosmolar Hyponatremia sodium found to be 127 with osmolality 268 likely in setting of 3rd spacing from volume overload vs diuretics currently Na 128 - fluid restriction - monitor Na lvls #History type 2 diabetes last A1C 9.8, patient takes metformin 1000mg BID - sliding scale insulin - hypoglycemic protocol in place #History CAD S/P stents ?on aspirin 81 mg daily ?on Atorvastatin 40 mg p.o. daily #Prostatomegaly CT abdomen pelvis was done previous admission shows prostatomegaly patient currently urinating spontaneously in urinal Urine output however on chart does not show significant increase, despite diuresis patients fluid balance is minimally negative ordered bladder scan, if distended will place a urinary catheter and at time of discharge can follow up with urology - f/u bladder scan - on tamsulosin 0.4mg qday - on finasteride 5mg qday - can follow up with urology as outpatient Case discussed with my senior Dr. Nicolas PGY-[address] Natasha Yeung MD PGY-1 Disposition: tele, observation Fluids: None Feeding: Carb consistent Thrombo prophylaxis: Heparin Gastric Ulcer prophylaxis: Pantoprazole 40mg q day CODE STATUS: Full code Senior resident attestation: I discussed with and supervised the regulatory internship physician who took care of this patient. I personally saw and examined the patient and discussed the assessment and plan with the entire medicine team, including my attending Dr. Kaur, I agree with the assessment and plan as documented above. Patient is a 79-year-old male past medical history of CAD s/p PCI, HFrEF status post AICD, recently discharged from hospital yesterday for diverticulitis and CHF exacerbation. Presented to ER with acute shortness of breath and orthopnea starting last night. Denied fever. Patient admitted to the hospital for AHRF secondary to CHF exacerbation. #Acute hypoxic respiratory failure #Acute on chronic CHF?initially on BiPAP, IV Lasix 80 mg was given, patient's clinical condition improved, later saturating well on nasal cannula oxygen. Continued with IV diuresis, will hold off on spironolactone and Entresto, continue with low-dose beta-enedelia, holding parameters in place. Legal Services Manager Dr. Samy Mathur was consulted, recommended discontinuing IV diuresis, continuing p.o. Lasix 40 mg daily, and reintroducing spironolactone and Entresto if blood pressure allows, cardiology okay with blood pressure in the low 90s, given EF 20%. #Concern for GI bleed: Melena reported by son, patient has not had a bowel movement last 2 days but reported dark stools previously, noted anemia, dropping hemoglobin since admission, in setting of soft blood pressure, will proceed with GI evaluation for GI bleed, Dr. Francis consulted. #Hypoosmolar hyponatremia: In the setting of diuresis, continue fluid restriction. MD Fidencio PGY2 Attending Provider Attestation/Addendum I have discussed and was present for the essential components of the history, physical examination, diagnosis, and treatment plan with the resident. I agree with the patient's care as documented by the resident and amended herein by me. Stanton Kaur DO. Although this document has been carefully reviewed, there may still be some phonetic and other typographical errors. These errors are purely grammatical due to imperfections in the software program and should not be construed in any way to compromise the substance of the patient's medical care during this visit.
[2024-07-16] MEDS: POTASSIUM CHLORIDE 20 mEq TABCR 40 MEQ PO (10:33)
[2024-07-16] MEDS: Magnesium Sulfate 4 GM Ivpb 4 GM/50 ML BAG IV (10:35)
[2024-07-16] MEDS: INSULIN GLARGINE (Lantus) 5 UNIT/0.05 ML (PER 5 UNITS) 10 UNIT SC (10:39)
--- NOTE | 2024-07-16 11:55 | PC.SS ---
Met with patient and family at bed side to discuss the d/c plan. Patient informs he would like to return at time of discharge. Patient is agreeable to home health if recommended and does not have a preferred agency. Patient's PCP is Dr. Alexander Reynoso at [facility]. Recent appointment was during April of 2024. Advance directive provided at this time. Patient assigned his sister, Apolonia Garcia as his alternate medical decision maker if he is not able to.
[2024-07-16] MEDS: MIDODRINE 5 MG TABLET 10 MG PO (13:18)
[2024-07-16] MEDS: LACTULOSE SYRUP 20 GM/30 ML UDC PO (13:20)
[2024-07-16] MEDS: PANTOPRAZOLE 40 MG TABLET PO (14:53)
--- NOTE | 2024-07-16 14:54 | PC.SS ---
Rounding note: pending Dr. Francis to see the patient for recommendations.
[2024-07-16] MEDS: Furosemide 40 MG TABLET PO (15:34)
--- NOTE | 2024-07-16 17:56 | ESCONSULT_ITS ---
<Statement entered by Reece Mathur MD - 07/17/24 22:33> I personally examined the patient took the history and consultation evaluated all essential complaints of the consultation report by Dr. Aleman PGY2 patient is well-known to me history of CAD stent placement RCA ischemic cardiomyopathy low ejection fraction admitted hospital congestive heart failure symptoms improving gradually with IV diuresis. Patient is clinically improving blood pressure on the low side started back on low-dose beta-enedelia but Entresto will be started later on continues low-dose spironolactone 25 mg daily as well. Will continue to monitor the patient tomorrow once she improves we will discharge home to follow-up as an outpatient my office HPI Data of Consult Requesting Physician: Zach Kaur DO Admitting Provider: Rylie Farias MD Attending Provider: Zach Kaur DO Primary Care Provider: Physician No Primary/Family Consult Narrative History of present illness: Mr. Garcia a 79 y/o male patient with significant medical history for HFrEF 20- 25%, s/p pacemaker, CAD s/p multiple stents (last one on October 2023), DM2, and recent [facility] admission for CHF exacerbation and diverticulitis on 07/11/24 was admitted for SOB, PND and cough. Patient was recently discharged on 07/15/24 and came back to ED within 24 hours. Per patient, he was awaken in middle of night with shortness of breath and dyspnea. Patient was also endorsing white phlegm productive cough. Patient denied fever, chills, ches pain/pressure, NVD or other associated symptoms. ED vitals were significant for BP 172/86, pulse 130 bpm, RR 36 and SO2 at 89%. Labs significant for BNP 1374 (higher than last admission). Chest X-ray sowed vascular congestion, EKG showed PVC and LBBB. Cardiology was consulted regarding patient's CHF exacerbation. Medical Hx: Non-ischemic cardiomyopathy / HFrEF (20-25% EF), DM2, CAD, HLD, HTN CAD Medications: Januvia, Finasterid, Atorvastatin, Carvedilol, Spironolactone, Lasix, Entresto Surgical Hx: s/p ICD, s/p PCI Social Hx: Denies smoking cigarette, drinking alcohol or using other illicit drugs, is , lives with Allergies: NKDA Code Status: Full Code 07/16/24: Patient found to have declining HgB, FOBT ordered, GI consulted. Patient retaining urine per bladder scan, law will be ordered by primary team. Patient saturating well on 3L nasal cannula. Physical exam doesn't indicate much volume overload: no pitting edema, lungs mostly clear on auscultation. Bedside US of IVC per primary team indicated compressible 2 cm IVC. Switch IV Lasix to p.o, start Spironolactone, continue Carvedilol. As patient's BP tolerates, restart Entresto. cc:: cc: Zach Kaur, Review of Systems Review of Systems Systems Reviewed: All systems reviewed, normal except as documented Exam Vital Signs Temp Pulse Resp BP Pulse Ox O2 Del Method O2 Flow Rate 97.2 F 91 18 81/61 L 92 L Nasal Cannula 2 07/16/24 16:00 07/16/24 17:55 07/16/24 16:00 07/16/24 17:55 07/16/24 16:00 07/16/24 16:00 07/16/24 16:00 FiO2 30 07/15/24 16:00 Narrative Exam Constitutional: well-developed, well-nourished, in no acute distress, lying in bed HEENT: NCAT, EOMI, reactive round pupils b/l, patent nares b/l, moist mucous membranes Lung: CTAB, no wheezing, no rhonchi Heart: Regular S1S2, no murmurs, gallops, or rubs Abdomen: Soft, non-distended, non-tender, bowel sounds present throughout Extremities: No cyanosis, clubbing, or edema, LE pulses present b/l Neurologic: No focal sensory or motor deficits noted, AOx3, appropriate affect Skin: Warm, dry, vitiligo of torso arms and legs noted Results Labs 07/16/24 04:35 07/16/24 04:35 Labs: Short CBC 07/16/24 Range/Units 04:35 WBC 7.6 (3.8-10.6) Thou/mm3 Hgb 9.8 L (13.5-16.0) g/dL Hct 27.9 L (41.0-53.0) % Plt Count 263 D (140-440) Thou/mm3 BMP 07/16/24 04:35 Sodium 128 L Potassium 3.7 D Chloride 92 L Carbon Dioxide 27.8 BUN 19 Creatinine 0.8 Glucose 232 H D Calcium 8.7 Liver Function 07/16/24 Range/Units 04:35 Total Bilirubin 0.6 (0.3-1.2) mg/dL AST 28 (0-34) U/L ALT 30 (10-49) U/L Alkaline Phosphatase 97 D (46-116) U/L Albumin 4.1 D (3.4-4.8) gm/dL ABG Interpretation ABG results: 07/15/24 16:01 VBG pH 7.56 VBG pCO2 30 L VBG pO2 77 H VBG Base Excess 5 H Quality Measures Quality Measures none Advance care planning discussed with:: other Medications Home Medications and Allergies Home Medications ?Medication ?Instructions ?Recorded ?Confirmed ?Type metformin 500 mg tablet 1,000 mg PO BID 01/22/20 07/15/24 History aspirin 81 mg capsule 81 mg PO DAILY 10/22/23 07/15/24 History atorvastatin 40 mg tablet 40 mg PO QPM 10/22/23 07/15/24 History carvedilol 3.125 mg tablet 3.125 mg PO BID 10/22/23 07/15/24 History spironolactone 25 mg tablet 25 mg PO DAILY 10/22/23 07/15/24 History Allergies Allergy/AdvReac Type Severity Reaction Status Date / Time No Known Allergies Allergy Verified 07/15/24 08:52 Visit Medications Acetaminophen (Acetaminophen 325 Mg Tablet) 650 mg PO Q6H PRN PRN Reason: Fever >101.5 Stop: 08/14/24 13:36 Acetaminophen (Acetaminophen 325 Mg Tablet) 650 mg PO Q6H PRN PRN Reason: PAIN SCALE 1-3 (mild Stop: 08/14/24 13:36 Albuterol/Ipratropium (Albuterol/Ipratropium (Duoneb) Rt Shanta 3 Ml Nebu) 3 ml INH Q6HRRT [facility] Stop: 08/14/24 18:59 Last Admin: 07/16/24 13:27 Dose: 3 ml Aspirin (Aspirin Ec 81 Mg Tabec) 81 mg PO QDAY [facility] Stop: 08/14/24 13:59 Last Admin: 07/16/24 08:33 Dose: 81 mg Atorvastatin Calcium (Atorvastatin Calcium 20 Mg Tablet) 40 mg PO HS [facility] Stop: 08/14/24 20:59 Last Admin: 07/15/24 21:17 Dose: 40 mg Carvedilol (Carvedilol 3.125 Mg Tablet) 3.125 mg PO BIDWM [facility] Stop: 08/14/24 17:29 Last Admin: 07/16/24 17:55 Dose: Not Given Dextrose (Dextrose 50%-Water Inj 50 Ml Syringe) 25 ml IV Q15MIN PRN PRN Reason: BG 50-70 responsive npo pt Stop: 08/14/24 13:51 Dextrose (Dextrose 50%-Water Inj 50 Ml Syringe) 50 ml IV Q15MIN PRN PRN Reason: BG <50 OR BG <70 & pt unresponsive Stop: 08/14/24 13:51 Finasteride (Finasteride 5 Mg Tablet) 5 mg PO QDAY [facility] Stop: 08/14/24 14:29 Last Admin: 07/16/24 08:33 Dose: 5 mg Furosemide (Furosemide 40 Mg Tablet) 40 mg PO QDAY [facility] Stop: 08/15/24 13:44 Last Admin: 07/16/24 15:34 Dose: 40 mg Glucagon (Glucagon Inj 1 Mg Vial) 1 mg IM Q15MIN PRN PRN Reason: BG <70, and no IV access Glucagon (Glucagon Inj 1 Mg Vial) 1 mg IM Q15MIN PRN PRN Reason: BG <70, and no IV access Heparin Sodium (Porcine) (Heparin Sod Inj 5000 Unit/Ml Vial) 5,000 unit SC Q8HR [facility] Stop: 07/29/24 14:29 Last Admin: 07/16/24 13:20 Dose: 5,000 unit Insulin Glargine (Insulin Glargine (Lantus) 5 Unit/0.05 Ml (Per 5 Units)) 15 unit SC QDAY [facility] Stop: 08/16/24 08:59 Insulin Human Lispro (Insulin Lispro (Admelog) 1 Unit/0.01 Ml Unit) 0 unit SC [facility]; Protocol Stop: 08/14/24 16:59 Last Admin: 07/16/24 16:41 Dose: 2 unit Ondansetron HCl (Ondansetron Inj 2 Mg/Ml Inj 2 Ml) 4 mg IV Q6H PRN; Protocol PRN Reason: NAUSEA OR VOMITING Stop: 08/14/24 13:36 Pantoprazole Sodium (Pantoprazole 40 Mg Tablet) 40 mg PO QDAY [facility] Stop: 08/15/24 14:14 Last Admin: 07/16/24 14:53 Dose: 40 mg Sennosides (Senna Tablet) 1 tab PO QDAY PRN; Protocol PRN Reason: constipation Stop: 08/14/24 13:36 Spironolactone (Spironolactone 25 Mg Tablet) 25 mg PO QDAY [facility] Stop: 08/15/24 13:44 Tamsulosin HCl (Tamsulosin Hcl 0.4 Mg Capsule) 0.4 mg PO QDAY [facility] Stop: 08/14/24 13:59 Last Admin: 07/16/24 08:33 Dose: 0.4 mg Discontinued Medications Albuterol/Ipratropium (Albuterol/Ipratropium (Duoneb) Rt Shanta 3 Ml Nebu) 3 ml INH X1 ONE Stop: 07/15/24 09:14 Last Admin: 07/15/24 09:44 Dose: 3 ml Carvedilol (Carvedilol 3.125 Mg Tablet) 3.125 mg PO BIDWM [facility] Stop: 08/14/24 17:29 Last Admin: 07/16/24 12:49 Dose: Not Given Furosemide (Furosemide Inj 10 Mg/Ml 4ml Vial) 80 mg IVP X1 ONE Stop: 07/15/24 08:18 Last Admin: 07/15/24 09:04 Dose: 80 mg Furosemide (Furosemide Inj 10 Mg/Ml 4ml Vial) 40 mg IVP BIDD [facility] Stop: 08/14/24 17:59 Last Admin: 07/16/24 05:20 Dose: Not Given Magnesium Sulfate (Magnesium Sulfate Ivpb) 4 gm in 50 mls @ 12.5 mls/hr IV X1 ONE Stop: 07/16/24 12:48 Last Admin: 07/16/24 10:35 Dose: 12.5 mls/hr Insulin Glargine (Insulin Glargine (Lantus) 5 Unit/0.05 Ml (Per 5 Units)) 10 unit SC QDAY [facility] Stop: 08/14/24 14:29 Last Admin: 07/16/24 10:39 Dose: 10 unit Lactulose (Lactulose Syrup 20 Gm/30 Ml Udc) 20 gm PO X1 ONE; Protocol Stop: 07/16/24 12:07 Last Admin: 07/16/24 13:20 Dose: 20 gm Midodrine (Midodrine 5 Mg Tablet) 10 mg PO TID PALAK Stop: 08/15/24 13:59 Last Admin: 07/16/24 13:18 Dose: 10 mg Potassium Chloride (Potassium Chloride 20 Meq Tabcr) 40 meq PO X1 ONE Stop: 07/16/24 08:49 Last Admin: 07/16/24 10:33 Dose: 40 meq Prednisone (Prednisone 20 Mg Tablet) 60 mg PO X1 ONE Stop: 07/15/24 09:14 Last Admin: 07/15/24 10:17 Dose: 60 mg Spironolactone (Spironolactone 25 Mg Tablet) 25 mg PO QDAY PALAK Stop: 08/15/24 13:44 Assessment & Plan Plan Mr. Garcia a 79 y/o male patient with significant medical history for HFrEF 20- 25%, s/p pacemaker, CAD s/p multiple stents (last one on October 2023), DM2 admitted for AHRF secondary to CHF exacerbation. #AHRF secondary to #Acute on chronic decompensated heart failure #HFrEF w/ EF 20-25% On admission, patient endorsing SOB, PND and orthopnea Admission lab significant for BNP 1374 CXR indicative of mild CHF Plan: -Transition Lasix 40 mg IV to P.O. -Continue carvedilol 3.125 mg BID -Start Spironolactone 25 mg Qday -Consider starting Entresto / GDMT as tolerated by BP -Keep Mag > 2 and K > 4 -Fluid restrictions -Low salt diet -Daily weights #CAD s/p stents Plan: -Continue Atorvastatin and Aspirin #DM2 #Hypoosmolar Hyponatremia #Prostatomegaly #?GI bleed -Management per primary team This patient care was discussed with my attending Dr. Kevan Hall MD PGY-2 Disclaimer: Minor errors in doormaker may be present since this note was dictated by speech recognition software.
--- NOTE | 2024-07-16 21:04 | PD.IMCONS ---
HPI Data of Consult Requesting Physician: Zach Kaur DO Primary Care Provider: Physician No Primary/Family Consult Narrative Reason for consult: Posthemorrhagic anemia dropping H&H History of present illness: 79 years old male with congestive heart failure bilateral pneumonia ejection fraction 20 to 25% Who is being having dropping hemoglobin hematocrit Did have dark stools while in the hospital FOBT is pending No hematemesis No bright red bleeding per rectum CT scan of the abdomen pelvis without contrast on 07/11/2024 showed heart failure cirrhosis versus hepatocellular disease and colonic diverticulosis without diverticulitis cc:: cc: Zach Kaur DO Review of Systems Review of Systems Systems Reviewed: All systems reviewed, normal except as documented Past Medical History Surgical History OTHER SURGICAL HX: As in the history of present illness Meds Home Medications and Allergies Home Medications ?Medication ?Instructions ?Recorded ?Confirmed ?Type metformin 500 mg tablet 1,000 mg PO BID 01/22/20 07/15/24 History aspirin 81 mg capsule 81 mg PO DAILY 10/22/23 07/15/24 History atorvastatin 40 mg tablet 40 mg PO QPM 10/22/23 07/15/24 History carvedilol 3.125 mg tablet 3.125 mg PO BID 10/22/23 07/15/24 History spironolactone 25 mg tablet 25 mg PO DAILY 10/22/23 07/15/24 History Allergies Allergy/AdvReac Type Severity Reaction Status Date / Time No Known Allergies Allergy Verified 07/15/24 08:52 Exam Vital Signs Temp Pulse Resp BP Pulse Ox O2 Del Method O2 Flow Rate 97.0 F 94 24 H 90/59 L 97 Nasal Cannula 2 07/16/24 20:00 07/16/24 20:00 07/16/24 20:00 07/16/24 20:00 07/16/24 20:00 07/16/24 20:00 07/16/24 20:00 FiO2 30 07/15/24 16:00 Constitutional Comments: Chronically ill-appearing Routine Respiratory Exam Comments: Scattered rhonchi Results Labs 07/16/24 04:35 07/16/24 04:35 Labs: Short CBC 07/16/24 Range/Units 04:35 WBC 7.6 (3.8-10.6) Thou/mm3 Hgb 9.8 L (13.5-16.0) g/dL Hct 27.9 L (41.0-53.0) % Plt Count 263 D (140-440) Thou/mm3 BMP 07/16/24 04:35 Sodium 128 L Potassium 3.7 D Chloride 92 L Carbon Dioxide 27.8 BUN 19 Creatinine 0.8 Glucose 232 H D Calcium 8.7 Liver Function 07/16/24 Range/Units 04:35 Total Bilirubin 0.6 (0.3-1.2) mg/dL AST 28 (0-34) U/L ALT 30 (10-49) U/L Alkaline Phosphatase 97 D (46-116) U/L Albumin 4.1 D (3.4-4.8) gm/dL ABG Interpretation ABG results: 07/15/24 16:01 VBG pH 7.56 VBG pCO2 30 L VBG pO2 77 H VBG Base Excess 5 H Assessment and Plan Additional Assessment & Plan Additional Plan: # Acute posthemorrhagic anemia with occult GI bleeding Plan Clear liquid diet Consent obtained for fiberoptic esophagogastroduodenoscopy under intravenous moderate sedation with possible therapeutic intervention possible biopsy scheduled tentatively for tomorrow Clear liquid diet till 11 AM tomorrow then n.p.o. except p.o. 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
[2024-07-16] MEDS: ATORVASTATIN CALCIUM 20 MG TABLET 40 MG PO (21:22)
[2024-07-17] VITALS (24 sets, daily range): BP systolic 92–109; BP diastolic 58–74; PULSE 74–102; RESP 12–98; TEMP 36.1–36.8; O2SAT 92–100
[2024-07-17] MEDS: ALBUTEROL/IPRATROPIUM (Duoneb) RT SOL 3 ML NEBU INH ×3 (00:22→12:31)
[2024-07-17] MEDS: HEPARIN SOD INJ 5000 UNIT/ML VIAL SC ×2 (05:24→14:01)
[2024-07-17 06:09] LABS: Basophils % (Auto) 0 % (0-2.5); Eosinophils # (Auto) 0.2 Thou/mm3 (0.0-0.5); Eosinophils % (Auto) 3 % (0-10); Hematocrit 29.6 % (41.0-53.0); Hemoglobin 10.2 g/dL (13.5-16.0); Immature Granulocytes % (Auto) 1 % (0-0); Immature Granulocytes Auto 0.04 Thou/mm3 (0.00-0.00); Lymphocytes # (Auto) 1.8 Thou/mm3 (1.0-4.8); Lymphocytes % (Auto) 21 % (10-50); Mean Corpuscular HGB Conc 34.5 g/dl (31.0-37.0); Mean Corpuscular Hemoglobin 31.5 pg (25.0-35.0); Mean Corpuscular Volume 91 fL (80-100); Monocytes % (Auto) 11 % (0-12); Neutrophils # (Auto) 5.7 Thou/mm3 (1.8-7.7); Neutrophils % (Auto) 65 % (37-80); Nucleated Red Blood Cell % 0 /100 WBC (0); Platelet Count 293 Thou/mm3 (140-440); RDW Standard Deviation 44.5 fL (35.1-43.9); Red Blood Count 3.24 Miln/mm3 (4.50-5.90); White Blood Count 8.8 Thou/mm3 (3.8-10.6)
[2024-07-17 06:39] LABS: Alanine Aminotransferase 31 U/L (10-49); Albumin, Serum 4.1 gm/dL (3.4-4.8); Albumin/Globulin Ratio 1.4 (1.2-2.2); Alkaline Phosphatase 96 U/L (46-116); Anion Gap 7 (7-16); Aspartate Amino Transferase 28 U/L (0-34); BUN/Creatinine Ratio 30 Ratio (12-20); Bilirubin,Total 0.6 mg/dL (0.3-1.2); Blood Urea Nitrogen 21 mg/dL (9-23); Calcium 8.7 mg/dL (8.3-10.6); Calcium (Corrected) 8.7 mg/dL (8.5-10.1); Chloride 93 mMol/L (98-107); Creatinine (Component) 0.7 mg/dL (0.6-1.3); Estimated Creatinine Clearance 72.8 mL/min (>60); Glucose 114 mg/dL (74-106); Magnesium 2.2 mg/dL (1.6-2.6); Osmolality,Calculated 264 (275-295); Phosphorous 3.4 mg/dL (2.4-5.1); Sodium 130 mMol/L (136-145); Total Protein 7.1 gm/dL (5.7-8.2); eGFR > 60 See Note
[2024-07-17] MEDS: INSULIN LISPRO (AdmeLOG) 1 UNIT/0.01 ML UNIT SC (08:12)
[2024-07-17] MEDS: PANTOPRAZOLE 40 MG TABLET PO (09:56)
[2024-07-17] MEDS: TAMSULOSIN HCL 0.4 MG CAPSULE PO (09:56)
[2024-07-17] MEDS: ASPIRIN EC 81 MG TABEC PO (09:56)
[2024-07-17] MEDS: FINASTERIDE 5 MG TABLET PO (09:57)
[2024-07-17] MEDS: SPIRONOLACTONE 25 MG TABLET PO (09:57)
[2024-07-17] MEDS: INSULIN GLARGINE (Lantus) 5 UNIT/0.05 ML (PER 5 UNITS) 15 UNIT SC (10:02)
--- NOTE | 2024-07-17 14:38 | PD.RESPRO ---
Documentation for date of: 07/17/24 Subjective Subjective Interval history: Patient seen today at the bedside found awake, alert, orientedx3. No overnight events reported. Vital signs significant for soft blood pressure, otherwise rest of vital signs stable. Labs unremarkable at this time. Yesterday evening, bedside US of the bladder was done, found to be retaining urine. Patient also has hx of prostatomegaly as per CT abdomen pelvis from previous admission, currently on tamsulosin and finasteride, ordered Law catheter. Consulted Urology Dr. Mckinney, said he will see the patient in the hospital. Patient currently scheduled for EGD today with GI specialist Dr. Francis. Exam Vital Signs Temp Pulse Resp BP Pulse Ox O2 Del Method O2 Flow Rate 97.5 F 85 18 105/69 99 Room Air 2 07/17/24 11:41 07/17/24 12:31 07/17/24 12:31 07/17/24 11:41 07/17/24 12:31 07/17/24 11:41 07/16/24 20:00 FiO2 30 07/15/24 16:00 Narrative Exam Physical Exam GENERAL: NAD, responsive/cooperative. AAOx3, on NC HEENT: Eyes open, symmetrical, & clear CARDIO: No chest pressure. Heart RRR, no obvious murmurs PULM: denies coughing/dyspnea. Lungs B/L CTA GI: Abdomen soft, nondistended, no pain on palpation. BSx4 URO/EXPLOSIVE ORDNANCE DISPOSAL MANAGER:: No further abnormalities noted. law catheter SKIN/MSK/EXT: No wounds/rashes/edema/amputations, no pain on palpation. Pedal pulses present B/L NEURO: AAOx3, no focal neuro deficits Objective Labs 07/17/24 04:50 07/17/24 04:50 Labs: Laboratory Results - last 24 hr 07/17/24 04:50 WBC 8.8 RBC 3.24 L Hgb 10.2 L Hct 29.6 L MCV 91 MCH 31.5 MCHC 34.5 RDW Std Deviation 44.5 H Plt Count 293 D Neut % (Auto) 65 Lymph % (Auto) 21 Nobles % (Auto) 11 Eos % (Auto) 3 Baso % (Auto) 0 Neut # (Auto) 5.7 Lymph # (Auto) 1.8 Nobles # (Auto) 1.0 H Eos # (Auto) 0.2 Baso # (Auto) 0.0 Immature Gran # (Auto) 0.04 H Absolute Nucleated RBC 0.00 Immature Gran % 1 H Nucleated RBC % 0 Sodium 130 L Potassium 4.0 Chloride 93 L Carbon Dioxide 30.0 Anion Gap 7 BUN 21 Creatinine 0.7 Estim Creat Clear Calc 72.8 eGFR > 60 BUN/Creatinine Ratio 30 H Glucose 114 H D Calculated Osmolality 264 L Calcium 8.7 Corrected Calcium 8.7 Phosphorus 3.4 Magnesium 2.2 Total Bilirubin 0.6 AST 28 ALT 31 Alkaline Phosphatase 96 Total Protein 7.1 Albumin 4.1 Globulin 3.0 Albumin/Globulin Ratio 1.4 ABG Interpretation ABG results: 07/15/24 16:01 VBG pH 7.56 VBG pCO2 30 L VBG pO2 77 H VBG Base Excess 5 H Quality Measures Quality Measures none Advance care planning discussed with:: patient Assessment & Plan Assessment Current Active Medications: Generic Name Dose Route Start Last Admin Trade Name Freq PRN Reason Stop Dose Admin Acetaminophen 650 mg 07/15/24 13:37 Acetaminophen 325 Mg Tablet PO 08/14/24 13:36 Q6H PRN Fever >101.5 Acetaminophen 650 mg 07/15/24 13:37 Acetaminophen 325 Mg Tablet PO 08/14/24 13:36 Q6H PRN PAIN SCALE 1-3 (mild Albuterol/Ipratropium 3 ml 07/15/24 19:00 07/17/24 12:31 Albuterol/Ipratropium (Duoneb) Rt Shanta 3 Ml Nebu INH 08/14/24 18:59 3 ml Q6HRRT PALAK Administration Aspirin 81 mg 07/15/24 14:00 07/17/24 09:56 Aspirin Ec 81 Mg Tabec PO 08/14/24 13:59 81 mg QDAY PALAK Administration Atorvastatin Calcium 40 mg 07/15/24 21:00 07/16/24 21:22 Atorvastatin Calcium 20 Mg Tablet PO 08/14/24 20:59 40 mg HS PALAK Administration Carvedilol 3.125 mg 07/16/24 17:30 07/17/24 08:24 Carvedilol 3.125 Mg Tablet PO 08/14/24 17:29 Not Given BIDWM PALAK Dextrose 25 ml 07/15/24 13:52 Dextrose 50%-Water Inj 50 Ml Syringe IV 08/14/24 13:51 Q15MIN PRN BG 50-70 responsive npo pt Dextrose 50 ml 07/15/24 13:52 Dextrose 50%-Water Inj 50 Ml Syringe IV 08/14/24 13:51 Q15MIN PRN BG <50 OR BG <70 & pt unresponsive Finasteride 5 mg 07/15/24 14:30 07/17/24 09:57 Finasteride 5 Mg Tablet PO 08/14/24 14:29 5 mg QDAY PALAK Administration Furosemide 40 mg 07/16/24 13:45 07/17/24 09:59 Furosemide 40 Mg Tablet PO 08/15/24 13:44 Not Given QDAY PALAK Glucagon 1 mg 07/15/24 13:52 Glucagon Inj 1 Mg Vial IM Q15MIN PRN BG <70, and no IV access Glucagon 1 mg 07/15/24 14:18 Glucagon Inj 1 Mg Vial IM Q15MIN PRN BG <70, and no IV access Heparin Sodium (Porcine) 5,000 unit 07/15/24 14:30 07/17/24 14:01 Heparin Sod Inj 5000 Unit/Ml Vial SC 07/29/24 14:29 5,000 unit Q8HR PALAK Administration Insulin Glargine 15 unit 07/17/24 09:00 07/17/24 10:02 Insulin Glargine (Lantus) 5 Unit/0.05 Ml (Per 5 Units) SC 08/16/24 08:59 15 unit QDAY PALAK Administration Insulin Human Lispro 0 unit 07/15/24 17:00 07/17/24 11:54 Insulin Lispro (Admelog) 1 Unit/0.01 Ml Unit SC 08/14/24 16:59 Not Given ACHS [facility] Protocol Ondansetron HCl 4 mg 07/15/24 13:37 Ondansetron Inj 2 Mg/Ml Inj 2 Ml IV 08/14/24 13:36 Q6H PRN NAUSEA OR VOMITING Protocol Pantoprazole Sodium 40 mg 07/16/24 14:15 07/17/24 09:56 Pantoprazole 40 Mg Tablet PO 08/15/24 14:14 40 mg QDAY PALAK Administration Sennosides 1 tab 07/15/24 13:37 Senna Tablet PO 08/14/24 13:36 QDAY PRN constipation Protocol Spironolactone 25 mg 07/16/24 13:47 07/17/24 09:57 Spironolactone 25 Mg Tablet PO 08/15/24 13:44 25 mg QDAY PALAK Administration Tamsulosin HCl 0.4 mg 07/15/24 14:00 07/17/24 09:56 Tamsulosin Hcl 0.4 Mg Capsule PO 08/14/24 13:59 0.4 mg QDAY PALAK Administration Plan 79 y/o M with PMHx of CAD s/p stents, HFrEF 20%, s/p pacemaker, with recent hospitalization for CHF exacerbation and diverticulitis. Admitted due to Acute hypoxic respiratory failure secondary to acute on chronic heartfailure exacerbation. #Acute Hypoxic respiratory failure possibly secondary to #Acute on chronic decompensated heart failure #History of HFrEF, 20-25% Other differentials include Pulmonary embolism, Pneumonia Patient was recently discharged from hospital for acute decompensated heart failure Patient endorses orthopnea and paroxysmal nocturnal dyspnea, however on physical exam patient looks dry, no peripheral edema noted, nor crackles on auscultation BNP elevated in the 1000s Pneumonia seems unlikely as patient has no fever, wbc count Patient arrived to the hospital with saturations in the 80s and required to be on ambubag. Was placed on BiPAP and is tolerating well with saturation 90-100 and after lasix 80mg given in ED D-Dimers found somewhat elevated, Wells score: 1.5; low risk for PE Echo showed:Dilated LV. Akinesis anterior septal wall. Severe hypokinesis lateral wall. Estimated EF 20-25% Normal RV size and function. Pacing wire present. Moderate LA dilation. Mild AV sclerosis without stenosis. Moderate MR, AI. Mild TR. IVC dilated. Patient currently on NC with adequate oxygenation. BP has been soft, started on midodrine 10mg tid to permit for more diuresis, consulted cardiology, Dr. Mathur, recommends transition from IV Lasix back to patients PO home dose, as well as resume patients spironolactone. SBP>80 is acceptable per cardiology as long as patient has no symptoms. Midodrine was dcd - on Lasix 40mg PO qday - on carvedilol 3.125mg BID - on spironolactone 25mg qday - will resume rest of goal directed medical therapy as BP permits - Strict I&Os - Daily weights - fluid restriction - Cardiology, Dr. Mathur on case, appreciate recommendations - Keep K>4, Mg>2 #Suspected GI bleed patient today had significant drop in Hg Patient also states that his last bowel movement 2x days ago was dark in color FOBT was ordered, found to be negative, but patient states having dark black stools - EGD planned for today - Dr. Francis, GI was consulted, appreciate recommendations #Hypoosmolar Hyponatremia sodium found to be 127 with osmolality 268 likely in setting of 3rd spacing from volume overload vs diuretics currently Na 130 - fluid restriction - monitor Na lvls #History type 2 diabetes last A1C 9.8, patient takes metformin 1000mg BID - sliding scale insulin - hypoglycemic protocol in place #History CAD S/P stents ?on aspirin 81 mg daily ?on Atorvastatin 40 mg p.o. daily #Prostatomegaly CT abdomen pelvis was done previous admission shows prostatomegaly patient currently urinating spontaneously in urinal Urine output however on chart does not show significant increase, despite diuresis patients fluid balance is minimally negative Bedside US of the bladder, post-voidal patient was found to be retaining urine, law catheter was placed, Urology consulted - on tamsulosin 0.4mg qday - on finasteride 5mg qday - Dr. Mckinney, Urology consulted, appreciate recommendations Case discussed with my senior Dr. Nicolas PGY-[address] Natasha Yeung MD PGY-1 Disposition: Telemetry Fluids: None Feeding: NPO for procedure Thrombo prophylaxis: Heparin Gastric Ulcer prophylaxis: Pantoprazole 40mg q day CODE STATUS: Full code Senior resident attestation: I discussed with and supervised the internet database specialist physician who took care of this patient. I personally saw and examined the patient and discussed the assessment and plan with the entire medicine team, including my attending Dr. Kaur, I agree with the assessment and plan as documented above. Patient is a 79-year-old male past medical history of CAD s/p PCI, HFrEF status post AICD, recently discharged from hospital yesterday for diverticulitis and CHF exacerbation. Presented to ER with acute shortness of breath and orthopnea starting last night. Denied fever. Patient admitted to the hospital for AHRF secondary to CHF exacerbation. #Acute hypoxic respiratory failure #Acute on chronic CHF?initially on BiPAP, IV Lasix 80 mg was given, patient's clinical condition improved, later saturating well on nasal cannula oxygen. Continued with IV diuresis, will hold off on spironolactone and Entresto, continue with low-dose beta-enedelia, holding parameters in place. Operations Officer Dr. Samy Mathur was consulted, recommended discontinuing IV diuresis, continuing p.o. Lasix 40 mg daily, and reintroducing spironolactone and Entresto if blood pressure allows, cardiology okay with blood pressure in the low 90s, given EF 20%. #Concern for GI bleed: Melena reported by son, patient has not had a bowel movement last 2 days but reported dark stools previously, noted anemia, dropping hemoglobin since admission, in setting of soft blood pressure, will proceed with GI evaluation for GI bleed, Dr. Francis consulted. Pending EGD. #Hypoosmolar hyponatremia: In the setting of diuresis, continue fluid restriction. MD Fidencio PGY2 Attending Provider Attestation/Addendum I have discussed and was present for the essential components of the history, physical examination, diagnosis, and treatment plan with the resident. I agree with the patient's care as documented by the resident and amended herein by me. Stanton Kaur DO Although this document has been carefully reviewed, there may still be some phonetic and other typographical errors. These errors are purely grammatical due to imperfections in the software program and should not be construed in any way to compromise the substance of the patient's medical care during this visit.
--- NOTE | 2024-07-17 15:06 | PC.SS ---
Rounding note: pending EGD and colonoscopy.
[2024-07-17] MEDS: ATORVASTATIN CALCIUM 20 MG TABLET 40 MG PO (20:26)
[2024-07-17] MEDS: NA SU/NAHCO3/KC/PEG (Golytely) 4,000 ML BTL 4000 ML PO (20:27)
[2024-07-18] VITALS (16 sets, daily range): BP systolic 93–111; BP diastolic 56–67; PULSE 66–86; RESP 14–98; TEMP 35.8–36.6; O2SAT 95–100; BMI 23.3
--- NOTE | 2024-07-18 00:16 | ESPR_ITS ---
RE: JOHN COOPER : 1945 DATE OF SERVICE: 07/17/2024 SUBJECTIVE: Ms. Cooper appears to be doing a little better today, still having some shortness of breath, no chest pain, admitted to the hospital with congestive heart failure. He restarted to have low-dose beta-enedelia, tolerating well so far, but blood pressure is still on the soft side, not started on any Entresto so far. He is also given spironolactone, tolerating well. No chest pain or shortness of breath. No orthopnea. OBJECTIVE: Vital Signs: Blood pressure is 92/60, pulse 74. Neck: Supple. No JVD. Lungs: Decreased breath sounds. Heart: S1, S2, regular. S4 gallop heard. Abdomen: Thin and Soft. /Rectal: Not performed. SIGNS CLEANER: Normal. Extremities: Mild edema. DIAGNOSTIC DATA: Electrocardiogram showed sinus rhythm, nonspecific changes. IMPRESSION: 1. Congestive heart failure, well compensated, improving. 2. Ischemic cardiomyopathy, severe left ventricular dysfunction. 3. Status post multivessel stent placement. 4. Status post implantable cardioverter-defibrillator implantation. RECOMMENDATIONS: Continue present medications. If he remains stable, he can be discharged to home on home medications including diuretics, a combination of spironolactone, as well as low dose Entresto as tolerated depending on blood pressure readings. I will see him for follow-up in 1-2 weeks following discharge. DT: 22:19:47 TT: 23:48:00 Ref: [id number] - TID: [id number]
[2024-07-18] MEDS: HEPARIN SOD INJ 5000 UNIT/ML VIAL SC ×2 (05:24→14:55)
[2024-07-18 05:56] LABS: Basophils % (Auto) 1 % (0-2.5); Eosinophils # (Auto) 0.4 Thou/mm3 (0.0-0.5); Eosinophils % (Auto) 7 % (0-10); Immature Granulocytes % (Auto) 0 % (0-0); Immature Granulocytes Auto 0.02 Thou/mm3 (0.00-0.00); Lymphocytes # (Auto) 1.4 Thou/mm3 (1.0-4.8); Lymphocytes % (Auto) 25 % (10-50); Mean Corpuscular HGB Conc 34.5 g/dl (31.0-37.0); Mean Corpuscular Hemoglobin 31.9 pg (25.0-35.0); Mean Corpuscular Volume 93 fL (80-100); Monocytes # (Auto) 0.8 Thou/mm3 (0.0-0.8); Monocytes % (Auto) 15 % (0-12); Neutrophils # (Auto) 2.9 Thou/mm3 (1.8-7.7); Neutrophils % (Auto) 53 % (37-80); Nucleated Red Blood Cell % 0 /100 WBC (0); Platelet Count 271 Thou/mm3 (140-440); RDW Standard Deviation 45.2 fL (35.1-43.9); Red Blood Count 3.13 Miln/mm3 (4.50-5.90); White Blood Count 5.5 Thou/mm3 (3.8-10.6)
[2024-07-18 06:29] LABS: Alanine Aminotransferase 25 U/L (10-49); Albumin, Serum 3.8 gm/dL (3.4-4.8); Albumin/Globulin Ratio 1.3 (1.2-2.2); Alkaline Phosphatase 85 U/L (46-116); Anion Gap 5 (7-16); Aspartate Amino Transferase 23 U/L (0-34); BUN/Creatinine Ratio 17 Ratio (12-20); Bilirubin,Total 0.6 mg/dL (0.3-1.2); Blood Urea Nitrogen 12 mg/dL (9-23); Calcium 8.8 mg/dL (8.3-10.6); Carbon Dioxide 29.6 mMol/L (20.0-31.0); Chloride 94 mMol/L (98-107); Creatinine (Component) 0.7 mg/dL (0.6-1.3); Estimated Creatinine Clearance 72.8 mL/min (>60); Glucose 110 mg/dL (74-106); Magnesium 2.1 mg/dL (1.6-2.6); Osmolality,Calculated 259 (275-295); Phosphorous 3.8 mg/dL (2.4-5.1); Potassium 4.2 mMol/L (3.4-5.1); Sodium 129 mMol/L (136-145); Total Protein 6.8 gm/dL (5.7-8.2); eGFR > 60 See Note
--- NOTE | 2024-07-18 08:03 | PC.NURSE ---
notified md dr. diana of pt bp being 93/62 with heart rate of 83. pt has carvedilol, lasix, and spiranolactone ordered. acknowledged. stated to hold lasix and spiranolactone and okay to give carvedilol.
[2024-07-18] MEDS: carVEDILOL 3.125 MG TABLET PO ×2 (09:02→18:06)
[2024-07-18] MEDS: ASPIRIN EC 81 MG TABEC PO (09:03)
[2024-07-18] MEDS: FINASTERIDE 5 MG TABLET PO (09:03)
[2024-07-18] MEDS: TAMSULOSIN HCL 0.4 MG CAPSULE PO (09:03)
[2024-07-18] MEDS: PANTOPRAZOLE 40 MG TABLET PO (09:03)
[2024-07-18] MEDS: INSULIN GLARGINE (Lantus) 5 UNIT/0.05 ML (PER 5 UNITS) 15 UNIT SC (09:04)
--- NOTE | 2024-07-18 10:37 | PC.SS ---
Follow up note: Colonoscopy pending. Pt will return home upon dc.
[2024-07-18] MEDS: INSULIN LISPRO (AdmeLOG) 1 UNIT/0.01 ML UNIT SC (11:42)
--- NOTE | 2024-07-18 14:01 | ESPR_ITS ---
Documentation for date of: 07/18/24 Subjective Subjective Interval history: Patient seen today at the bedside found awake, alert, oriented x3. No overnight events reported. No active complaints at this time. Vital signs stable at this time. Lasix and spironolactone held today due to concern for soft bloodpressure and currently undergoing golytly prep for colonoscopy today. Spoke to Dr. Mckinney from Urology will evaluate patient for prostatomegaly and possible discharge with law catheter. Exam Vital Signs Temp Pulse Resp BP Pulse Ox O2 Del Method O2 Flow Rate 97.8 F 74 14 109/64 97 Room Air 3 07/18/24 11:52 07/18/24 12:00 07/18/24 11:52 07/18/24 11:52 07/18/24 11:52 07/18/24 11:52 07/18/24 11:52 FiO2 30 07/18/24 11:52 Narrative Exam Physical Exam GENERAL: NAD, responsive/cooperative. AAOx3, on NC HEENT: Eyes open, symmetrical, & clear CARDIO: No chest pressure. Heart RRR, no obvious murmurs PULM: denies coughing/dyspnea. Lungs B/L CTA GI: Abdomen soft, nondistended, no pain on palpation. BSx4 URO/CARPENTER REPAIRER:: No further abnormalities noted. law catheter SKIN/MSK/EXT: No wounds/rashes/edema/amputations, no pain on palpation. Pedal pulses present B/L NEURO: AAOx3, no focal neuro deficits Objective Labs 07/18/24 05:10 07/18/24 05:10 Labs: Laboratory Results - last 24 hr 07/18/24 05:10 WBC 5.5 RBC 3.13 L Hgb 10.0 L Hct 29.0 L MCV 93 MCH 31.9 MCHC 34.5 RDW Std Deviation 45.2 H Plt Count 271 Neut % (Auto) 53 Lymph % (Auto) 25 [place] % (Auto) 15 H Eos % (Auto) 7 Baso % (Auto) 1 Neut # (Auto) 2.9 Lymph # (Auto) 1.4 [place] # (Auto) 0.8 Eos # (Auto) 0.4 Baso # (Auto) 0.0 Immature Gran # (Auto) 0.02 H Absolute Nucleated RBC 0.00 Immature Gran % 0 Nucleated RBC % 0 Sodium 129 L Potassium 4.2 Chloride 94 L Carbon Dioxide 29.6 Anion Gap 5 L BUN 12 Creatinine 0.7 Estim Creat Clear Calc 72.8 eGFR > 60 BUN/Creatinine Ratio 17 Glucose 110 H Calculated Osmolality 259 L Calcium 8.8 Corrected Calcium 9.0 Phosphorus 3.8 Magnesium 2.1 Total Bilirubin 0.6 AST 23 ALT 25 Alkaline Phosphatase 85 Total Protein 6.8 Albumin 3.8 Globulin 3.0 Albumin/Globulin Ratio 1.3 ABG Interpretation ABG results: 07/15/24 16:01 VBG pH 7.56 VBG pCO2 30 L VBG pO2 77 H VBG Base Excess 5 H Quality Measures Quality Measures none Advance care planning discussed with:: patient Assessment & Plan Assessment Current Active Medications: Generic Name Dose Route Start Last Admin Trade Name Freq PRN Reason Stop Dose Admin Acetaminophen 650 mg 07/15/24 13:37 Acetaminophen 325 Mg Tablet PO 08/14/24 13:36 Q6H PRN Fever >101.5 Acetaminophen 650 mg 07/15/24 13:37 Acetaminophen 325 Mg Tablet PO 08/14/24 13:36 Q6H PRN PAIN SCALE 1-3 (mild Albuterol/Ipratropium 3 ml 07/18/24 01:29 Albuterol/Ipratropium (Duoneb) Rt Shanta 3 Ml Nebu INH 08/17/24 01:26 Q4HRRT PRN SHORTNESS OF BREATH OR WHEEZE Aspirin 81 mg 07/15/24 14:00 07/18/24 09:03 Aspirin Ec 81 Mg Tabec PO 08/14/24 13:59 81 mg QDAY PALAK Administration Atorvastatin Calcium 40 mg 07/15/24 21:00 07/17/24 20:26 Atorvastatin Calcium 20 Mg Tablet PO 08/14/24 20:59 40 mg HS PALAK Administration Carvedilol 3.125 mg 07/16/24 17:30 07/18/24 09:02 Carvedilol 3.125 Mg Tablet PO 08/14/24 17:29 3.125 mg BIDWM PALAK Administration Dextrose 25 ml 07/15/24 13:52 Dextrose 50%-Water Inj 50 Ml Syringe IV 08/14/24 13:51 Q15MIN PRN BG 50-70 responsive npo pt Dextrose 50 ml 07/15/24 13:52 Dextrose 50%-Water Inj 50 Ml Syringe IV 08/14/24 13:51 Q15MIN PRN BG <50 OR BG <70 & pt unresponsive Finasteride 5 mg 07/15/24 14:30 07/18/24 09:03 Finasteride 5 Mg Tablet PO 08/14/24 14:29 5 mg QDAY PALAK Administration Furosemide 40 mg 07/16/24 13:45 07/18/24 08:06 Furosemide 40 Mg Tablet PO 08/15/24 13:44 Not Given QDAY PALAK Glucagon 1 mg 07/15/24 14:18 Glucagon Inj 1 Mg Vial IM Q15MIN PRN BG <70, and no IV access Heparin Sodium (Porcine) 5,000 unit 07/15/24 14:30 07/18/24 05:24 Heparin Sod Inj 5000 Unit/Ml Vial SC 07/29/24 14:29 5,000 unit Q8HR PALAK Administration Insulin Glargine 15 unit 07/17/24 09:00 07/18/24 09:04 Insulin Glargine (Lantus) 5 Unit/0.05 Ml (Per 5 Units) SC 08/16/24 08:59 15 unit QDAY PALAK Administration Insulin Human Lispro 0 unit 07/15/24 17:00 07/18/24 11:42 Insulin Lispro (Admelog) 1 Unit/0.01 Ml Unit SC 08/14/24 16:59 1 unit ACHS PALAK Administration Protocol Ondansetron HCl 4 mg 07/15/24 13:37 Ondansetron Inj 2 Mg/Ml Inj 2 Ml IV 08/14/24 13:36 Q6H PRN NAUSEA OR VOMITING Protocol Pantoprazole Sodium 40 mg 07/16/24 14:15 07/18/24 09:03 Pantoprazole 40 Mg Tablet PO 08/15/24 14:14 40 mg QDAY PALAK Administration Sennosides 1 tab 07/15/24 13:37 Senna Tablet PO 08/14/24 13:36 QDAY PRN constipation Protocol Spironolactone 25 mg 07/16/24 13:47 07/18/24 08:06 Spironolactone 25 Mg Tablet PO 08/15/24 13:44 Not Given QDAY PALAK Tamsulosin HCl 0.4 mg 07/15/24 14:00 07/18/24 09:03 Tamsulosin Hcl 0.4 Mg Capsule PO 08/14/24 13:59 0.4 mg QDAY PALAK Administration Plan 79 y/o M with PMHx of CAD s/p stents, HFrEF 20%, s/p pacemaker, with recent hospitalization for CHF exacerbation and diverticulitis. Admitted due to Acute hypoxic respiratory failure secondary to acute on chronic heartfailure exacerbation. #Acute Hypoxic respiratory failure possibly secondary to #Acute on chronic decompensated heart failure #History of HFrEF, 20-25% Other differentials include Pulmonary embolism, Pneumonia Patient was recently discharged from hospital for acute decompensated heart failure Patient endorses orthopnea and paroxysmal nocturnal dyspnea, however on physical exam patient looks dry, no peripheral edema noted, nor crackles on auscultation BNP elevated in the 1000s Pneumonia seems unlikely as patient has no fever, wbc count Patient arrived to the hospital with saturations in the 80s and required to be on ambubag. Was placed on BiPAP and is tolerating well with saturation 90-100 and after lasix 80mg given in ED D-Dimers found somewhat elevated, Wells score: 1.5; low risk for PE Echo showed:Dilated LV. Akinesis anterior septal wall. Severe hypokinesis lateral wall. Estimated EF 20-25% Normal RV size and function. Pacing wire present. Moderate LA dilation. Mild AV sclerosis without stenosis. Moderate MR, AI. Mild TR. IVC dilated. Patient currently on NC with adequate oxygenation. BP has been soft, started on midodrine 10mg tid to permit for more diuresis, consulted cardiology, Dr. Mathur, recommends transition from IV Lasix back to patients PO home dose, as well as resume patients spironolactone. SBP>80 is acceptable per cardiology as long as patient has no symptoms. Midodrine was dcd - on Lasix 40mg PO qday- held today - on carvedilol 3.125mg BID - on spironolactone 25mg qday- held today - will resume rest of goal directed medical therapy as BP permits - Strict I&Os - Daily weights - fluid restriction - Cardiology, Dr. Mathur on case, appreciate recommendations - Keep K>4, Mg>2 #Suspected GI bleed patient today had significant drop in Hg Patient also states that his last bowel movement 2x days ago was dark in color FOBT was ordered, found to be negative, but patient states having dark black stools EGD was done found some gastritis and esophagitis - on golytly prep for colonoscopy - Dr. Francis, GI was consulted, appreciate recommendations #Hypoosmolar Hyponatremia sodium found to be 127 with osmolality 268 likely in setting of 3rd spacing from volume overload vs diuretics currently Na 129 - fluid restriction - monitor Na lvls #History type 2 diabetes last A1C 9.8, patient takes metformin 1000mg BID - sliding scale insulin - hypoglycemic protocol in place #History CAD S/P stents ?on aspirin 81 mg daily ?on Atorvastatin 40 mg p.o. daily #Prostatomegaly CT abdomen pelvis was done previous admission shows prostatomegaly patient currently urinating spontaneously in urinal Urine output however on chart does not show significant increase, despite diuresis patients fluid balance is minimally negative Bedside US of the bladder, post-voidal patient was found to be retaining urine, law catheter was placed, Urology consulted - on tamsulosin 0.4mg qday - on finasteride 5mg qday - Dr. Mckinney, Urology consulted, appreciate recommendations Case discussed with my senior Dr. Nicolas PGY-[address] Natasha Yeung MD PGY-1 Disposition: Telemetry Fluids: None Feeding: NPO for procedure Thrombo prophylaxis: Heparin Gastric Ulcer prophylaxis: Pantoprazole 40mg q day CODE STATUS: Full code Senior resident attestation: I discussed with and supervised the general internist and physician leader physician who took care of this patient. I personally saw and examined the patient and discussed the assessment and plan with the entire medicine team, including my attending Dr. Kaur, I agree with the assessment and plan as documented above. Patient is a 79-year-old male past medical history of CAD s/p PCI, HFrEF status post AICD, recently discharged from hospital yesterday for diverticulitis and CHF exacerbation. Presented to ER with acute shortness of breath and orthopnea starting last night. Denied fever. Patient admitted to the hospital for AHRF secondary to CHF exacerbation. #Acute hypoxic respiratory failure?resolved #Acute on chronic CHF?initially on BiPAP, IV Lasix 80 mg was given, patient's clinical condition improved, later saturating well on nasal cannula oxygen. Continued with IV diuresis, will hold off on spironolactone and Entresto, continue with low-dose beta-enedelia, holding parameters in place. Adult Remedial Education Instructor Dr. Samy Mathur was consulted, recommended discontinuing IV diuresis, continuing p.o. Lasix 40 mg daily, and reintroducing spironolactone and Entresto if blood pressure allows, cardiology okay with blood pressure in the low 90s, given EF 20%. #Concern for GI bleed: Melena reported by patient even during hospital stay, will proceed with GI evaluation for GI bleed, Dr. Francis consulted. EGD showed gastritis, no active bleed, pending colonoscopy in the afternoon. Continue with antiplatelet medications for now as hemoglobin stable. #Hypoosmolar hyponatremia: In the setting of diuresis, continue fluid restriction. MD Fidencio PGY2 Attending Provider Attestation/Addendum I have discussed and was present for the essential components of the history, physical examination, diagnosis, and treatment plan with the resident. I agree with the patient's care as documented by the resident and amended herein by me. Stanton Kaur, DO. Patient seen and evaluated this AM. In short, 79-year-old male with significant past medical history of CAD with stents, HFrEF, EF 20%, pacemaker, recent discharge for acute decompensated heart failure and diverticulitis, subsequently admitted for acute hypoxic respiratory failure likely secondary to decompensated heart failure. Patient was also having black stools, presently being worked up for possible GI bleed. Significant problems: #Acute decompensated heart failure?improved. History of HFrEF, EF 2024% #Acute hypoxic respiratory failure?improved #?UGIB, complaints of black tarry stools #Prostamegaly/urinary retention?Law in place #Hyponatremia?stable No acute events overnight, vital signs stable, patient afebrile. I/O 2100/1949, weight 62.1 kg. Hemoglobin stable at 10, sodium 129 which is stable, patient did have upper endoscopy yesterday which demonstrated esophagitis, gastritis, now taking GoLytely for colonoscopy prep. Of note, last echocardiogram on 07/11 demonstrating dilated left ventricle, akinesis of the anterior septal wall, severe hypokinesis of the lateral wall, estimated EF 20 to 25%, normal RV size and function, moderate LA dilation, mild AV sclerosis without stenosis and moderate MR, AI, mild TR with a dilated IVC. Patient presently consuming GoLytely for colonoscopy today, appreciate any gastroenterology recommendations. Cardiology also consulted, Dr. Mathur, recommends continuing current medications which include aspirin 81 mg daily, Lipitor 40 mg nightly, Coreg 3.125 mg p.o. twice daily and Lasix 40 mg p.o. daily. Spironolactone 25 mg daily is also on board. The patient's blood pressure has been low hence we have not started Entresto as of yet, can consider prior to discharge. The patient has also had an issue with urinary retention due to prostamegaly. A Law had to be inserted on this admission as well as he was retaining significant amount of urine. Urology was consulted, Dr. Mckinney has agreed to see the patient considering his clinic has approximately a 6-month wait before an appointment is available. Will continue to monitor, appreciate all specialist recommendations. Although this document has been carefully reviewed, there may still be some phonetic and other typographical errors. These errors are purely grammatical due to imperfections in the software program and should not be construed in any way to compromise the substance of the patient's medical care during this visit.
--- NOTE | 2024-07-18 17:28 | PC.NURSE ---
report given to Blanquita Murillo
--- NOTE | 2024-07-18 17:36 | PC.NURSE ---
Delmi at bedside. states to continue current medicine plan and dc catheter on sunday morning at 0700. urine trial if patient is able to urinate on his own
[2024-07-18] MEDS: NA SU/NAHCO3/KC/PEG (Golytely) 4,000 ML BTL 4000 ML PO (19:19)
--- NOTE | 2024-07-18 20:01 | PD.IMPROG ---
Documentation for date of: 07/18/24 Subjective Subjective Interval history: Patient was scheduled for colonoscopy but he is not clear Second gallon GoLytely will be started Colonoscopy most likely in the morning if he is clear Exam Vital Signs Temp Pulse Resp BP Pulse Ox O2 Del Method O2 Flow Rate 97.0 F 81 20 104/57 L 96 Room Air 3 07/18/24 19:48 07/18/24 19:48 07/18/24 19:48 07/18/24 19:48 07/18/24 19:48 07/18/24 19:48 07/18/24 15:37 FiO2 30 07/18/24 15:37 Objective Labs 07/18/24 05:10 07/18/24 05:10 Labs: Laboratory Results - last 24 hr 07/18/24 05:10 WBC 5.5 RBC 3.13 L Hgb 10.0 L Hct 29.0 L MCV 93 MCH 31.9 MCHC 34.5 RDW Std Deviation 45.2 H Plt Count 271 Neut % (Auto) 53 Lymph % (Auto) 25 [place] % (Auto) 15 H Eos % (Auto) 7 Baso % (Auto) 1 Neut # (Auto) 2.9 Lymph # (Auto) 1.4 [place] # (Auto) 0.8 Eos # (Auto) 0.4 Baso # (Auto) 0.0 Immature Gran # (Auto) 0.02 H Absolute Nucleated RBC 0.00 Immature Gran % 0 Nucleated RBC % 0 Sodium 129 L Potassium 4.2 Chloride 94 L Carbon Dioxide 29.6 Anion Gap 5 L BUN 12 Creatinine 0.7 Estim Creat Clear Calc 72.8 eGFR > 60 BUN/Creatinine Ratio 17 Glucose 110 H Calculated Osmolality 259 L Calcium 8.8 Corrected Calcium 9.0 Phosphorus 3.8 Magnesium 2.1 Total Bilirubin 0.6 AST 23 ALT 25 Alkaline Phosphatase 85 Total Protein 6.8 Albumin 3.8 Globulin 3.0 Albumin/Globulin Ratio 1.3 Impressions Impression: # Acute posthemorrhagic anemia colonoscopy after more GoLytely ABG Interpretation ABG results: 07/15/24 16:01 VBG pH 7.56 VBG pCO2 30 L VBG pO2 77 H VBG Base Excess 5 H Assessment & Plan A&P Narrative # Acute posthemorrhagic anemia with occult GI bleeding Plan Clear liquid diet Consent obtained for fiberoptic esophagogastroduodenoscopy under intravenous moderate sedation with possible therapeutic intervention possible biopsy scheduled tentatively for tomorrow Clear liquid diet till 11 AM tomorrow then n.p.o. except p.o. meds In case the EGD is negative Will consider doing a fibrotic colonoscopy prior to discharge Other medical problems include # Congestive heart failure systolic ejection fraction 20 to 25% with elevated BNP # Bilateral pneumonia # Hypoxic respiratory failure due to congestive heart failure currently on 3 L nasal cannula # Cirrhosis versus hepatocellular disease of the liver Thank you very much for the opportunity to participate in the care of this patient Time Spent With Patient Time: Total time spent is greater than 50% in coordination of care (as documented) at patient's floor/unit and/or counseling patient:
[2024-07-18] MEDS: ACETAMINOPHEN 325 MG TABLET 650 MG PO (20:29)
[2024-07-18] MEDS: ATORVASTATIN CALCIUM 20 MG TABLET 40 MG PO (20:29)
[2024-07-19] VITALS (22 sets, daily range): BP systolic 93–110; BP diastolic 53–70; PULSE 67–97; RESP 12–98; TEMP 36.1–36.8; O2SAT 94–100
[2024-07-19 05:38] LABS: Basophils % (Auto) 0 % (0-2.5); Eosinophils # (Auto) 0.2 Thou/mm3 (0.0-0.5); Eosinophils % (Auto) 4 % (0-10); Hematocrit 27.8 % (41.0-53.0); Hemoglobin 9.5 g/dL (13.5-16.0); Immature Granulocytes % (Auto) 0 % (0-0); Immature Granulocytes Auto 0.02 Thou/mm3 (0.00-0.00); Lymphocytes # (Auto) 1.4 Thou/mm3 (1.0-4.8); Lymphocytes % (Auto) 23 % (10-50); Mean Corpuscular HGB Conc 34.2 g/dl (31.0-37.0); Mean Corpuscular Hemoglobin 31.8 pg (25.0-35.0); Mean Corpuscular Volume 93 fL (80-100); Monocytes # (Auto) 0.8 Thou/mm3 (0.0-0.8); Monocytes % (Auto) 13 % (0-12); Neutrophils # (Auto) 3.6 Thou/mm3 (1.8-7.7); Neutrophils % (Auto) 60 % (37-80); Nucleated Red Blood Cell % 0 /100 WBC (0); Platelet Count 310 Thou/mm3 (140-440); RDW Standard Deviation 45.8 fL (35.1-43.9); Red Blood Count 2.99 Miln/mm3 (4.50-5.90); White Blood Count 6.1 Thou/mm3 (3.8-10.6)
[2024-07-19] MEDS: HEPARIN SOD INJ 5000 UNIT/ML VIAL SC ×3 (05:38→21:37)
[2024-07-19 06:13] LABS: Alanine Aminotransferase 23 U/L (10-49); Albumin, Serum 3.9 gm/dL (3.4-4.8); Albumin/Globulin Ratio 1.3 (1.2-2.2); Alkaline Phosphatase 86 U/L (46-116); Anion Gap 8 (7-16); Aspartate Amino Transferase 22 U/L (0-34); BUN/Creatinine Ratio 13 Ratio (12-20); Bilirubin,Total 0.6 mg/dL (0.3-1.2); Blood Urea Nitrogen 8 mg/dL (9-23); Calcium 8.7 mg/dL (8.3-10.6); Calcium (Corrected) 8.8 mg/dL (8.5-10.1); Carbon Dioxide 28.6 mMol/L (20.0-31.0); Chloride 94 mMol/L (98-107); Creatinine (Component) 0.6 mg/dL (0.6-1.3); Globulin 2.9 gm/dL (2.3-3.5); Glucose 60 mg/dL (74-106); Magnesium 1.8 mg/dL (1.6-2.6); Osmolality,Calculated 258 (275-295); Phosphorous 3.2 mg/dL (2.4-5.1); Potassium 3.5 mMol/L (3.4-5.1); Sodium 131 mMol/L (136-145); Total Protein 6.8 gm/dL (5.7-8.2); eGFR > 60 See Note
--- NOTE | 2024-07-19 06:40 | PC.NURSE ---
DR. CALL NOTIFIED OF PT''S GLUCOSE 60, SPOT CHECK FINGERSTICK 62 MG/DL. PT AAOX4, NO SA/S OF HYPOGLYCEMIA NOTED. SKIN WARM AND DRY. PT PROVIDED WITH APPLE JUICE AND JELLO, PT TOLERATED WELL.
[2024-07-19] MEDS: Furosemide 40 MG TABLET PO (08:22)
[2024-07-19] MEDS: SPIRONOLACTONE 25 MG TABLET PO (08:23)
[2024-07-19] MEDS: TAMSULOSIN HCL 0.4 MG CAPSULE PO (08:23)
[2024-07-19] MEDS: PANTOPRAZOLE 40 MG TABLET PO (08:23)
[2024-07-19] MEDS: Magnesium Sulfate 4 GM Ivpb 4 GM/50 ML BAG IV (08:24)
[2024-07-19] MEDS: POTASSIUM CHLORIDE 20 mEq TABCR 40 MEQ PO (08:24)
[2024-07-19] MEDS: FINASTERIDE 5 MG TABLET PO (08:24)
[2024-07-19] MEDS: carVEDILOL 3.125 MG TABLET PO ×2 (08:24→18:15)
[2024-07-19] MEDS: ASPIRIN EC 81 MG TABEC PO (08:24)
--- NOTE | 2024-07-19 12:19 | ESPR_ITS ---
<Statement entered by Rylie Farias MD - 07/28/24 16:10> I reviewed above note and agree with findings and plans. I have also personally examined the patient with medicine team and went over assessment and plan with medical team including editing internship and resident physician. Documentation for date of: 07/19/24 Subjective Subjective Interval history: Patient seen today at the bedside fine awake, alert, oriented x 3. No overnight events reported. States no active complaints at this time. Blood pressure continues to be soft at this time. Currently undergoing GoLytely prep for colonoscopy. Diuretics on hold at this time. Pending evaluation by urology Dr Mckinney as patient has prostatomegaly on finasteride and tamsulosin with Law catheter. Exam Vital Signs Temp Pulse Resp BP Pulse Ox O2 Del Method O2 Flow Rate 97.0 F 73 12 107/64 96 Room Air 3 07/19/24 08:00 07/19/24 12:15 07/19/24 12:15 07/19/24 12:15 07/19/24 12:15 07/19/24 08:00 07/19/24 12:15 FiO2 30 07/19/24 08:00 Narrative Exam Physical Exam GENERAL: NAD, responsive/cooperative. AAOx3, on NC HEENT: Eyes open, symmetrical, & clear CARDIO: No chest pressure. Heart RRR, no obvious murmurs PULM: denies coughing/dyspnea. Lungs B/L CTA GI: Abdomen soft, nondistended, no pain on palpation. BSx4 URO/POTTERY STRIPER:: No further abnormalities noted. law catheter SKIN/MSK/EXT: No wounds/rashes/edema/amputations, no pain on palpation. Pedal pulses present B/L NEURO: AAOx3, no focal neuro deficits Objective Labs 07/19/24 04:58 07/19/24 04:58 Labs: Laboratory Results - last 24 hr 07/19/24 04:58 WBC 6.1 RBC 2.99 L Hgb 9.5 L Hct 27.8 L MCV 93 MCH 31.8 MCHC 34.2 RDW Std Deviation 45.8 H Plt Count 310 D Neut % (Auto) 60 Lymph % (Auto) 23 [place] % (Auto) 13 H Eos % (Auto) 4 Baso % (Auto) 0 Neut # (Auto) 3.6 Lymph # (Auto) 1.4 [place] # (Auto) 0.8 Eos # (Auto) 0.2 Baso # (Auto) 0.0 Immature Gran # (Auto) 0.02 H Absolute Nucleated RBC 0.00 Immature Gran % 0 Nucleated RBC % 0 Sodium 131 L Potassium 3.5 D Chloride 94 L Carbon Dioxide 28.6 Anion Gap 8 BUN 8 L Creatinine 0.6 Estim Creat Clear Calc 85.0 eGFR > 60 BUN/Creatinine Ratio 13 Glucose 60 L D Calculated Osmolality 258 L Calcium 8.7 Corrected Calcium 8.8 Phosphorus 3.2 Magnesium 1.8 Total Bilirubin 0.6 AST 22 ALT 23 Alkaline Phosphatase 86 Total Protein 6.8 Albumin 3.9 Globulin 2.9 Albumin/Globulin Ratio 1.3 ABG Interpretation ABG results: 07/15/24 16:01 VBG pH 7.56 VBG pCO2 30 L VBG pO2 77 H VBG Base Excess 5 H Quality Measures Quality Measures none Advance care planning discussed with:: patient Assessment & Plan Assessment Current Active Medications: Generic Name Dose Route Start Last Admin Trade Name Freq PRN Reason Stop Dose Admin Acetaminophen 650 mg 07/15/24 13:37 Acetaminophen 325 Mg Tablet PO 08/14/24 13:36 Q6H PRN Fever >101.5 Acetaminophen 650 mg 07/15/24 13:37 07/18/24 20:29 Acetaminophen 325 Mg Tablet PO 08/14/24 13:36 650 mg Q6H PRN Administration PAIN SCALE 1-3 (mild Albuterol/Ipratropium 3 ml 07/18/24 01:29 Albuterol/Ipratropium (Duoneb) Rt Shanta 3 Ml Nebu INH 08/17/24 01:26 Q4HRRT PRN SHORTNESS OF BREATH OR WHEEZE Aspirin 81 mg 07/15/24 14:00 07/19/24 08:24 Aspirin Ec 81 Mg Tabec PO 08/14/24 13:59 81 mg QDAY PALAK Administration Atorvastatin Calcium 40 mg 07/15/24 21:00 07/18/24 20:29 Atorvastatin Calcium 20 Mg Tablet PO 08/14/24 20:59 40 mg HS PALAK Administration Bisacodyl 10 mg 07/19/24 12:08 Bisacodyl 10 Mg Supp NM 07/19/24 14:08 X1 PRN Gas pain Carvedilol 3.125 mg 07/16/24 17:30 07/19/24 08:24 Carvedilol 3.125 Mg Tablet PO 08/14/24 17:29 3.125 mg BIDWM PALAK Administration Dextrose 25 ml 07/15/24 13:52 Dextrose 50%-Water Inj 50 Ml Syringe IV 08/14/24 13:51 Q15MIN PRN BG 50-70 responsive npo pt Dextrose 50 ml 07/15/24 13:52 Dextrose 50%-Water Inj 50 Ml Syringe IV 08/14/24 13:51 Q15MIN PRN BG <50 OR BG <70 & pt unresponsive Diphenhydramine HCl 25 mg 07/19/24 12:08 Diphenhydramine Inj 50 Mg/Ml Vial IV 07/19/24 14:08 PRNMRX1 PRN MODERATE SEDATION Fentanyl Citrate 50 mcg 07/19/24 12:08 Fentanyl Cit Inj 50 Mcg/Ml Amp 2ml IV 07/19/24 14:08 Q2M PRN MODERATE SEDATION Finasteride 5 mg 07/15/24 14:30 07/19/24 08:24 Finasteride 5 Mg Tablet PO 08/14/24 14:29 5 mg QDAY PALAK Administration Furosemide 40 mg 07/16/24 13:45 07/19/24 08:22 Furosemide 40 Mg Tablet PO 08/15/24 13:44 40 mg QDAY PALAK Administration Glucagon 1 mg 07/15/24 14:18 Glucagon Inj 1 Mg Vial IM Q15MIN PRN BG <70, and no IV access Heparin Sodium (Porcine) 5,000 unit 07/15/24 14:30 07/19/24 05:38 Heparin Sod Inj 5000 Unit/Ml Vial SC 07/29/24 14:29 5,000 unit Q8HR PALAK Administration Insulin Glargine 15 unit 07/17/24 09:00 07/19/24 08:25 Insulin Glargine (Lantus) 5 Unit/0.05 Ml (Per 5 Units) SC 08/16/24 08:59 Not Given QDAY PALAK Insulin Human Lispro 0 unit 07/15/24 17:00 07/19/24 07:51 Insulin Lispro (Admelog) 1 Unit/0.01 Ml Unit SC 08/14/24 16:59 Not Given ACHS [facility] Protocol Meperidine HCl 25 mg 07/19/24 12:08 Meperidine Inj 50 Mg/Ml Vial IV 07/19/24 14:08 Q2M PRN MODERATE SEDATION Midazolam HCl 2 mg 07/19/24 12:08 Midazolam Inj 1 Mg/Ml Vial 2 Ml IV 07/19/24 14:08 Q2M PRN Moderate Sedation Ondansetron HCl 4 mg 07/15/24 13:37 Ondansetron Inj 2 Mg/Ml Inj 2 Ml IV 08/14/24 13:36 Q6H PRN NAUSEA OR VOMITING Protocol Pantoprazole Sodium 40 mg 07/16/24 14:15 07/19/24 08:23 Pantoprazole 40 Mg Tablet PO 08/15/24 14:14 40 mg QDAY PALAK Administration Sennosides 1 tab 07/15/24 13:37 Senna Tablet PO 08/14/24 13:36 QDAY PRN constipation Protocol Spironolactone 25 mg 07/16/24 13:47 07/19/24 08:23 Spironolactone 25 Mg Tablet PO 08/15/24 13:44 25 mg QDAY PALAK Administration Tamsulosin HCl 0.4 mg 07/15/24 14:00 07/19/24 08:23 Tamsulosin Hcl 0.4 Mg Capsule PO 08/14/24 13:59 0.4 mg QDAY PALAK Administration Plan 79 y/o M with PMHx of CAD s/p stents, HFrEF 20%, s/p pacemaker, with recent hospitalization for CHF exacerbation and diverticulitis. Admitted due to Acute hypoxic respiratory failure secondary to acute on chronic heartfailure exacerbation. #Acute Hypoxic respiratory failure possibly secondary to #Acute on chronic decompensated heart failure-improving #History of HFrEF, 20-25% Other differentials include Pulmonary embolism, Pneumonia Patient was recently discharged from hospital for acute decompensated heart failure Patient endorses orthopnea and paroxysmal nocturnal dyspnea, however on physical exam patient looks dry, no peripheral edema noted, nor crackles on auscultation BNP elevated in the 1000s Pneumonia seems unlikely as patient has no fever, wbc count Patient arrived to the hospital with saturations in the 80s and required to be on ambubag. Was placed on BiPAP and is tolerating well with saturation 90-100 and after lasix 80mg given in ED D-Dimers found somewhat elevated, Wells score: 1.5; low risk for PE Echo showed:Dilated LV. Akinesis anterior septal wall. Severe hypokinesis lateral wall. Estimated EF 20-25% Normal RV size and function. Pacing wire present. Moderate LA dilation. Mild AV sclerosis without stenosis. Moderate MR, AI. Mild TR. IVC dilated. Patient currently on NC with adequate oxygenation. BP has been soft, started on midodrine 10mg tid to permit for more diuresis, consulted cardiology, Dr. Mathur, recommends transition from IV Lasix back to patients PO home dose, as well as resume patients spironolactone. SBP>80 is acceptable per cardiology as long as patient has no symptoms. Midodrine was dcd - on Lasix 40mg PO qday- held - on carvedilol 3.125mg BID - on spironolactone 25mg qday- held - will resume rest of goal directed medical therapy as BP permits - Strict I&Os - Daily weights - fluid restriction - Cardiology, Dr. Mathur on case, appreciate recommendations - Keep K>4, Mg>2 #Suspected GI bleed patient today had significant drop in Hg Patient also states that his last bowel movement 2x days ago was dark in color FOBT was ordered, found to be negative, but patient states having dark black stools EGD was done found some gastritis and esophagitis Scheduled for colonoscopy 07/18/2024 but patient was not clear at that time and was post-poned for next day - on golytly prep for colonoscopy - Dr. Francis, GI was consulted, appreciate recommendations #Hypoosmolar Hyponatremia sodium found to be 127 with osmolality 268 likely in setting of 3rd spacing from volume overload vs diuretics currently Na 131 - fluid restriction - monitor Na lvls #History type 2 diabetes last A1C 9.8, patient takes metformin 1000mg BID - sliding scale insulin - hypoglycemic protocol in place #History CAD S/P stents ?on aspirin 81 mg daily ?on Atorvastatin 40 mg p.o. daily #Prostatomegaly CT abdomen pelvis was done previous admission shows prostatomegaly patient currently urinating spontaneously in urinal Urine output however on chart does not show significant increase, despite diuresis patients fluid balance is minimally negative Bedside US of the bladder, post-voidal patient was found to be retaining urine, law catheter was placed, Urology consulted - on tamsulosin 0.4mg qday - on finasteride 5mg qday - Dr. Mckinney, Urology consulted, appreciate recommendations Case discussed with my senior Dr. Nicolas PGY-[address] Dinora Yeung MD PGY-1 Disposition: Telemetry Fluids: None Feeding: NPO for procedure Thrombo prophylaxis: Heparin Gastric Ulcer prophylaxis: Pantoprazole 40mg q day CODE STATUS: Full code Senior resident attestation: Patient evaluated and examined at the bedside, plan of care discussed with rest of the team including my attending physician, except as noted. Patient is s/p EGD and colonoscopy, no indication to stop with antiplatelet medications, blood pressure on the lower side, will discharge tomorrow Quresh PGY2
--- NOTE | 2024-07-19 13:25 | SUR.PHASEI ---
1319 To PACU able to lift head off of pillow, following simple commands continue to monitor pt vital signs and status.
--- NOTE | 2024-07-19 13:56 | SUR.PHASEI ---
1355 Transfer to room 275 in stable condition no complaints, no s/s of distress noted .
[2024-07-19] MEDS: ATORVASTATIN CALCIUM 20 MG TABLET 40 MG PO (20:34)
[2024-07-20] VITALS (7 sets, daily range): BP systolic 96–118; BP diastolic 58–73; PULSE 70–95; RESP 14–27; TEMP 36.1–36.8; O2SAT 96–98
[2024-07-20 05:28] LABS: Basophils % (Auto) 0 % (0-2.5); Eosinophils # (Auto) 0.3 Thou/mm3 (0.0-0.5); Eosinophils % (Auto) 5 % (0-10); Hematocrit 27.7 % (41.0-53.0); Hemoglobin 9.5 g/dL (13.5-16.0); Immature Granulocytes % (Auto) 0 % (0-0); Immature Granulocytes Auto 0.02 Thou/mm3 (0.00-0.00); Lymphocytes # (Auto) 1.1 Thou/mm3 (1.0-4.8); Lymphocytes % (Auto) 20 % (10-50); Mean Corpuscular HGB Conc 34.3 g/dl (31.0-37.0); Mean Corpuscular Hemoglobin 31.8 pg (25.0-35.0); Mean Corpuscular Volume 93 fL (80-100); Monocytes # (Auto) 0.7 Thou/mm3 (0.0-0.8); Monocytes % (Auto) 14 % (0-12); Neutrophils # (Auto) 3.3 Thou/mm3 (1.8-7.7); Neutrophils % (Auto) 61 % (37-80); Nucleated Red Blood Cell % 0 /100 WBC (0); Platelet Count 296 Thou/mm3 (140-440); RDW Standard Deviation 46.6 fL (35.1-43.9); Red Blood Count 2.99 Miln/mm3 (4.50-5.90); White Blood Count 5.4 Thou/mm3 (3.8-10.6)
[2024-07-20] MEDS: HEPARIN SOD INJ 5000 UNIT/ML VIAL SC (05:47)
[2024-07-20 05:59] LABS: Alanine Aminotransferase 23 U/L (10-49); Albumin, Serum 3.9 gm/dL (3.4-4.8); Albumin/Globulin Ratio 1.4 (1.2-2.2); Alkaline Phosphatase 85 U/L (46-116); Anion Gap 6 (7-16); Aspartate Amino Transferase 23 U/L (0-34); BUN/Creatinine Ratio 10 Ratio (12-20); Bilirubin,Total 0.7 mg/dL (0.3-1.2); Blood Urea Nitrogen 8 mg/dL (9-23); Calcium 8.8 mg/dL (8.3-10.6); Calcium (Corrected) 8.9 mg/dL (8.5-10.1); Carbon Dioxide 27.7 mMol/L (20.0-31.0); Chloride 98 mMol/L (98-107); Creatinine (Component) 0.8 mg/dL (0.6-1.3); Estimated Creatinine Clearance 63.7 mL/min (>60); Globulin 2.8 gm/dL (2.3-3.5); Glucose 130 mg/dL (74-106); Osmolality,Calculated 264 (275-295); Phosphorous 3.7 mg/dL (2.4-5.1); Potassium 4.7 mMol/L (3.4-5.1); Sodium 132 mMol/L (136-145); Total Protein 6.7 gm/dL (5.7-8.2); eGFR > 60 See Note
[2024-07-20] MEDS: INSULIN LISPRO (AdmeLOG) 1 UNIT/0.01 ML UNIT SC ×2 (08:02→11:30)
[2024-07-20] MEDS: carVEDILOL 3.125 MG TABLET PO (08:22)
[2024-07-20] MEDS: FINASTERIDE 5 MG TABLET PO (08:22)
[2024-07-20] MEDS: Furosemide 40 MG TABLET PO (08:23)
[2024-07-20] MEDS: TAMSULOSIN HCL 0.4 MG CAPSULE PO (08:23)
[2024-07-20] MEDS: PANTOPRAZOLE 40 MG TABLET PO (08:23)
[2024-07-20] MEDS: SPIRONOLACTONE 25 MG TABLET PO (08:23)
[2024-07-20] MEDS: INSULIN GLARGINE (Lantus) 5 UNIT/0.05 ML (PER 5 UNITS) 15 UNIT SC (08:23)
[2024-07-20] MEDS: ASPIRIN EC 81 MG TABEC PO (08:23)
--- NOTE | 2024-07-20 12:49 | ESDS_ITS ---
<Statement entered by Rylie Farias MD - 07/28/24 16:13> I reviewed above note and agree with findings and plans. I have also personally examined the patient with medicine team and went over assessment and plan with medical team including internal medicine nurse practitioner and resident physician. Planned Discharge Date 07/20/24 DS: Providers Provider Date of admission: 07/15/24 13:37 Primary care physician: Physician No Primary/Family Admitting Provider: Rylie Farias MD Attending Provider on Admission: Zach Kaur DO Consults: 07/16/24 11:37 Consult to Cardiology Routine Comment: Consulting Provider: Reece Mathur Instructions: EF 20%, Hypotensive 07/16/24 12:06 Consult to Gastroenterology Routine Comment: Consulting Provider: Kristopher Francis 07/17/24 14:32 Consult to Urology Stat Comment: urinary retention Consulting Provider: Re Mckinney Attending Provider on DC: Allan Yeung MD Discharging Provider: Allan Yeung MD DS: Diagnosis Problem List Completed Was Problem List Reviewed/Reconciled?: Yes Hospital Course Hospital Course Hospital course: 79 y/o M with PMHx of HFrEF 20%,s/p pacemaker, CAD s/p stents (October 2023), diabetes type 2, and recent hospitalization for CHF exacerbation and diverticulitis (discharged 07/14/2024) presented to the ED due to increased shortness of breath without exertion. Patient states that he woke up during the night with dyspnea, even with reclining the bed with pillows, as well as cough with minimal whitish phlegm. Patient also stated feeling some chest pressure. Admitted for observation due to acute hypoxic respiratory failure secondary to acute on chronic decompensated heart failure. During hospital stay patient's heart failure was managed with IV diuretics as well as restarting patient's goal-directed medical therapy as blood pressure permitted. Cardiology, Dr. Mathur was consulted recommended switching IV diuresis to p.o. As patient's blood pres sure remained on the softer side, patient will follow-up with cardiology to resume rest of goal-directed medical therapy as blood pressure permits. Patient also had sudden drop in hemoglobin for which GI Dr. Francis was consulted and underwent GI workup including endoscopy and colonoscopy. Endoscopy showed mild gastritis, colonoscopy was negative except 1 polyp which was biopsied and patient will follow-up as outpatient for the results. Patient was also found with prostatomegaly resume home medications finasteride and tamsulosin, bedside ultrasound was done found to have urinary retention for this reason patient had Law's catheter placed and recommended to follow-up with primary care physician and urology referral for management of Law catheter. Patient at this time is medically stable for discharge. Patient should follow- up with his supervisor green end department Dr. Samy Mathur within 1 week of discharge from the hospital. Patient to continue carvedilol 3.125 twice daily, atorvastatin 40 mg daily, aspirin 81 mg daily, tamsulosin 0.4 mg daily and finasteride 5 mg daily, Lasix 40 mg daily. Spironolactone was stopped due to concern for hyperkalemia as patient's potassium levels have been trending up although stable at this time. Rest of goal-directed medical therapy can be resumed by cardiology after clinical evaluation as blood pressures on the lower side. Patient should follow-up with gastroenterology for results of biopsy of polyp resection. Patient will be discharged with Law's catheter for urinary obstruction, recommended following up with her urologist Dr. Mckinney as an outpatient basis for prostate and further management of the Law's catheter. Please follow-up with your primary doctor for management of diabetes mellitus and urology referral. In case of worsening symptoms, please return to the emergency room. Problem list: #Acute Hypoxic respiratory failure possibly secondary to #Acute on chronic decompensated heart failure-improving #History of HFrEF, 20-25% #Suspected GI bleed #Hypoosmolar Hyponatremia #History type 2 diabetes #History CAD S/P stents #Prostatomegaly Case discussed with my senior Dr. Nicolas PGY-[address] Dinora Yeung MD PGY-1 Patient evaluated today, stable for discharge, blood pressure on the lower side, holding off on spironolactone due to concern for hyperkalemia due to uptrending potassium as well as low blood pressure. Rest of the GDMT can be resumed by cardiology on outpatient basis. Furosemide 40 mg ordered. Patient currently has a Law's catheter, plan to continue with Law's catheter to be removed by primary care/urology outpatient due to bladder outlet obstruction. Patient may relapse with acute CHF if unable to make good urine, reasonable to be discharged with Law's catheter and can follow-up with urology outpatient. Quresh pgy2 Status at Discharge Functional status at discharge: independent ambulation Overall status at discharge: patient is progressing back to baseline Time Spent with Patient Time attestation: Total time spent providing and/or coordinating discharge services: Time spent: Greater than 30 minutes Exam Vital Signs Temp Pulse Resp BP Pulse Ox O2 Del Method O2 Flow Rate 97.5 F 77 27 H 96/67 96 Room Air 0 07/20/24 12:00 07/20/24 12:00 07/20/24 12:00 07/20/24 12:00 07/20/24 12:00 07/20/24 12:07/20/24 12:00 FiO2 0 07/20/24 12:00 Narrative Exam Physical Exam GENERAL: NAD, responsive/cooperative. AAOx3, on NC HEENT: Eyes open, symmetrical, & clear CARDIO: No chest pressure. Heart RRR, no obvious murmurs PULM: denies coughing/dyspnea. Lungs B/L CTA GI: Abdomen soft, nondistended, no pain on palpation. BSx4 URO/CAN STACKER:: No further abnormalities noted. law catheter SKIN/MSK/EXT: No wounds/rashes/edema/amputations, no pain on palpation. Pedal pulses present B/L NEURO: AAOx3, no focal neuro deficits Discharge Plan Plan Patient Disposition: HOME (Self Care) Care Plan Goals: Recommend following up with your supervisor green end department Dr. Samy Mathur within 1 week of discharge from the hospital. Continue on carvedilol 3.125 twice daily, atorvastatin 40 mg daily, aspirin 81 mg daily, tamsulosin 0.4 mg daily and finasteride 5 mg daily. We have stopped spironolactone 25 mg due to concern for increasing potassium levels, Rest of the GDMT to be resumed by cardiology office after clinical evaluation, as blood pressure is on the lower side. Continue with Law's catheter for urinary obstruction, Recommend following up with urologist Dr. Mckinney, as an outpatient basis for your prostate and further management of the Law's catheter. Patient should follow up with Gastroenterology for results of biopsy s/p polyp resection Please follow-up with your primary doctor for management of diabetes mellitus and urology referral. In case of worsening symptoms, please return to the emergency room. Prescriptions/Referrals Prescriptions/Med Rec: New tamsulosin 0.4 mg Capsule 0.4 mg PO QDAY 30 Days Qty: 30 0RF furosemide 40 mg tablet 40 mg PO QDAY Qty: 30 0RF Continued metformin 500 mg Tablet 1,000 mg PO BID Hold Instructions: Resume on 10/25/23. No se tome esta medicina hasta el Desiree 10/25/2023. Rx Instructions: with meals atorvastatin 40 mg Tablet 40 mg PO QPM carvedilol 3.125 mg Tablet 3.125 mg PO BID Rx Instructions: with food aspirin 81 mg Capsule 81 mg PO DAILY finasteride 5 mg tablet 5 mg PO QDAY Qty: 30 0RF Discontinued spironolactone 25 mg Tablet 25 mg PO DAILY Referrals: No Primary/Family,Physician [Primary Care Provider] - Patient/Caregiver Discharge Instructions Education Materials: Diabetes and Heart Disease, Colonoscopy, Upper GI Endoscopy, Coping with Heart Failure Print Language: Kittitian Stand Alone Forms: [employer] Award Info., Patient Portal Info Letter Discharge Order Discharge Orders: Discharge (Routine); Ordered 07/20/24 Ordered By: Allan Yeung Quality Discharge Quality Measures VTE prophylaxis
--- NOTE | 2024-07-20 13:25 | PC.SS ---
Paint Roller Assembler (KAYY) met with patient [id number] to discuss discharge plan. Patient will return home with home health (RN services to assist with law catheter care) with his ; family will provide transportation.
--- NOTE | 2024-07-20 17:14 | PD.IMPROG ---
Documentation for date of: 07/20/24 Subjective Subjective Interval history: Case discussed with internal medicine team Okay to discharge the patient Colonoscopy showed sigmoid colon polyp endoscopically resected diverticulosis sigmoid colon 2+ internal hemorrhoids No further GI workup necessary Exam Vital Signs Temp Pulse Resp BP Pulse Ox O2 Del Method O2 Flow Rate 97.5 F 77 27 H 96/67 96 Room Air 0 07/20/24 12:00 07/20/24 12:00 07/20/24 12:00 07/20/24 12:00 07/20/24 12:00 07/20/24 12:00 07/20/24 12:00 FiO2 0 07/20/24 12:00 Objective Labs 07/20/24 04:58 07/20/24 04:58 Labs: Laboratory Results - last 24 hr 07/20/24 04:58 WBC 5.4 RBC 2.99 L Hgb 9.5 L Hct 27.7 L MCV 93 MCH 31.8 MCHC 34.3 RDW Std Deviation 46.6 H Plt Count 296 Neut % (Auto) 61 Lymph % (Auto) 20 [place] % (Auto) 14 H Eos % (Auto) 5 Baso % (Auto) 0 Neut # (Auto) 3.3 Lymph # (Auto) 1.1 [place] # (Auto) 0.7 Eos # (Auto) 0.3 Baso # (Auto) 0.0 Immature Gran # (Auto) 0.02 H Absolute Nucleated RBC 0.00 Immature Gran % 0 Nucleated RBC % 0 Sodium 132 L Potassium 4.7 D Chloride 98 Carbon Dioxide 27.7 Anion Gap 6 L BUN 8 L Creatinine 0.8 Estim Creat Clear Calc 63.7 eGFR > 60 BUN/Creatinine Ratio 10 L Glucose 130 H D Calculated Osmolality 264 L Calcium 8.8 Corrected Calcium 8.9 Phosphorus 3.7 Magnesium 2.0 Total Bilirubin 0.7 AST 23 ALT 23 Alkaline Phosphatase 85 Total Protein 6.7 Albumin 3.9 Globulin 2.8 Albumin/Globulin Ratio 1.4 Impressions Impression: # Sigmoid colon polyp endoscopically resected biopsies pending # Diverticulosis sigmoid colon #Gastritis Okay to discharge patient home to be followed by the PCP ABG Interpretation ABG results: 07/15/24 16:01 VBG pH 7.56 VBG pCO2 30 L VBG pO2 77 H VBG Base Excess 5 H Assessment & Plan A&P Narrative # Acute posthemorrhagic anemia with occult GI bleeding Plan Clear liquid diet Consent obtained for fiberoptic esophagogastroduodenoscopy under intravenous moderate sedation with possible therapeutic intervention possible biopsy scheduled tentatively for tomorrow Clear liquid diet till 11 AM tomorrow then n.p.o. except p.o. meds In case the EGD is negative Will consider doing a fibrotic colonoscopy prior to discharge Other medical problems include # Congestive heart failure systolic ejection fraction 20 to 25% with elevated BNP # Bilateral pneumonia # Hypoxic respiratory failure due to congestive heart failure currently on 3 L nasal cannula # Cirrhosis versus hepatocellular disease of the liver Thank you very much for the opportunity to participate in the care of this patient Time Spent With Patient Time: Total time spent is greater than 50% in coordination of care (as documented) at patient's floor/unit and/or counseling patient:
--- NOTE | 2024-07-23 08:25 | ESPR_ITS ---
RE: JOHN COOPER : 1945 DATE OF SERVICE: 07/18/2024 DATE OF VISIT: 07/18/2024. SUBJECTIVE: Mr. Cooper appears to be doing better today. He is sitting comfortably in a chair, not having any shortness of breath or chest pain. He has a history of chronic systolic heart failure, well compensated, continues to improve, feels better today. He is not having any shortness of breath or chest pain, saturating well on room air. OBJECTIVE: Vital Signs: Heart rate 80, blood pressure is on the low side only 96/60, pulse 78 respirations 14. Neck: No JVD. Chest:SYMMETRICAL__ Lungs: Decreased clear Heart: S1, S2, regular rhythm_ 1. _Chronic systolic heart failure. 2. ischemic cardiomyopathy status post stent placement. 3. Status post ICD implantation. RECOMMENDATIONS: As the patient appears to be doing well, continue the 81 mg aspirin daily. Also, continue spironolactone for now. Since the blood pressure is low _Entresto has been held, but able to tolerate low-dose carvedilol well. Discharged home to have follow-up as an outpatient. I will readjust his medications following discharge. DT: 12:55:53 TT: 14:57:00 Ref: [id number] - TID: [id number] MTDD
--- NOTE | 2024-07-25 12:10 | URONOTEN_ITS ---
RE: JOHN COOPER : 1945 DATE: 07/18/2024 CHIEF COMPLAINT: 1. BPH with urinary obstruction and LUTS, not on any medication, denies any prostatic surgery. 2. Urinary retention. Placement of Retana catheter. COMORBID CONDITION: 1. 20%, status post pacemaker. 2. Coronary artery disease status post placement of coronary artery stent 10/2023. 3. Diabetes mellitus type 2. 4. Recent hospitalization for congestive heart failure exacerbation. 5. Diverticulitis. HISTORY OF PRESENT ILLNESS: A 79-year-old gentleman presented to the emergency room, had shortness of breath, cough, and minimal whitish phlegm. The patient has been feeling some chest pressure. Denies any fever or chills. The patient has a symptom of urinary obstruction for the last one year. He is not currently on any medication. He denies any prostatic surgery. He had placement of Retana catheter for the last 5 days. ED COURSE: He was hypertensive, tachycardic and had tachypnea, O2 saturation 89%. EKG had showed left bundle branch block and some PVC. X-ray chest shows some vascular congestion. In the emergency room, he was started on Lasix and prednisone. Past medical history as enumerated above. REVIEW OF SYSTEMS: All systems review is negative except as documented. PHYSICAL EXAMINATION: General: Condition is satisfactory. Orientation x3. HEENT: Normocephalic, atraumatic. Eyes: No anemia or jaundice. Neck: Supple. Trachea central. Thyroid is not enlarged. Extremities: Revealed no edema, cyanosis, or clubbing. Vital Signs: Vital signs are stable. They are in HPI in EMR. Chest: Symmetrical. Heart: Regular rate and rhythm. Abdomen: Soft, nontender. No masses. Liver, spleen, kidneys are palpable. No CVA tenderness. Rectal: Deferred. He has indwelling Retana catheter. VARIOUS LAB: WBC is 9.4, hemoglobin 10.8, BUN is 13, creatinine is 1.0. IMPRESSION: 1. Benign prostatic hypertrophy with urinary obstruction and lower urinary tract symptoms. 2. Urinary retention. Placement of Retana catheter. RECOMMENDATIONS: The patient is already started on tamsulosin 0.4 mg p.o. daily, finasteride 5 mg p.o. daily. Recommended is removal of Retana catheter and give trial of voiding and I have given him a followup appointment in urology office and he will have a complete urologic workup. DT: 18:00:19 TT: 23:45:00 Ref: [id number] - TID: [id number]
== END 2024-07-20 14:49 | disposition home or self-care (01) | DRG 291 ==
LOC: SERX 11:57 → SERHOLD 13:55 → S3NX 15:50 → S2NX 07-18 18:19
PROVIDERS: Specialist; Student in an Organized Health Care Education/Training Program; Admitting Provider Internal Medicine; Emergency Provider Emergency Medicine; Visit Provider Student in an Organized Health Care Education/Training Program
PROC: 0DJ08ZZ Inspection of Upper Intestinal Tract, Via Natural or Artificial Opening Endoscopic (ICD-10-PCS; CPT 43239; principal; 2024-07-17 16:30)
PROC: 0DJD8ZZ Inspection of Lower Intestinal Tract, Via Natural or Artificial Opening Endoscopic (ICD-10-PCS; CPT 45378; principal; 2024-07-19 12:30)
DX: I11.0 Hypertensive heart disease with heart failure (principal); I50.23 Acute on chronic systolic (congestive) heart failure; J96.01 Acute respiratory failure with hypoxia; K20.91 Esophagitis, unspecified with bleeding; K29.71 Gastritis, unspecified, with bleeding; K57.31 Diverticulosis of large intestine without perforation or abscess with bleeding; E87.1 Hypo-osmolality and hyponatremia; D62 Acute posthemorrhagic anemia; Z95.810 Presence of automatic (implantable) cardiac defibrillator; I25.10 Atherosclerotic heart disease of native coronary artery without angina pectoris; Z95.5 Presence of coronary angioplasty implant and graft; E11.9 Type 2 diabetes mellitus without complications; I25.5 Ischemic cardiomyopathy; R33.8 Other retention of urine; N40.1 Benign prostatic hyperplasia with lower urinary tract symptoms; K63.5 Polyp of colon; K64.8 Other hemorrhoids; I44.7 Left bundle-branch block, unspecified
CPT/HCPCS: 36415; 36600; 71045; 80053; 82803; 83605; 83690; 83735; 83880; 84100; 84484; 85025; 85379; 87081; 87400; 87634; 87811; 93005; 93225; 94640; 94660; 96372; 96374; 99285; A9270; J1200; J1643; J1815; J1940; J2250; J3010; J3475; J7512; J1644

== ENCOUNTER → 2024-08-04 | Outpatient (CLI) | payer OTHER, MEDICAID, SELFPAY ==
--- NOTE | 2024-08-04 10:40 | XR_ITS ---
Examination: Bone densitometry Date and time of exam:August 04, 2024 1038 hours INDICATIONS: 79-year-old male with diagnosis age related osteoporosis, diabetic Technique: Lumbar spine and hip total bone mineralization values of an calculated. Peak reference and age match control results have been displayed. Findings: Lumbar spine total bone mineralization is1.265 gm/cm2. This is 1.6 standard deviations above peak reference. This is 2.7 standard deviations above age-matched controls. Hip total bone mineralization is 0.953 gm/cm2 This is 0.8 standard deviations below peak reference. This is 0.2 standard deviations above age-matched controls Impression: There is normal mineralization based on lumbar spine measurements. There is osteopenia based on hip measurements
== END | disposition home or self-care (01) ==
PROVIDERS: Referring Provider Nurse Practitioner Family; Visit Provider Nurse Practitioner Family
DX: M85.80 Other specified disorders of bone density and structure, unspecified site (principal)
CPT/HCPCS: 77080

== ENCOUNTER 2024-08-20 20:37 | Emergency (ER) | payer OTHER, SELFPAY ==
[2024-08-20 20:39] VITALS: BMI 22.3
[2024-08-20 21:10] VITALS: BP 125/75; PULSE 84; RESP 17; TEMP 36.8; O2SAT 96
--- NOTE | 2024-08-20 21:26 | PD.EDRME ---
Rapid Medical Screening Exam [facility] Arrival date/time: 08/20/24 20:37 Chief Complaint: Urogenital-Male Time Seen by Provider: 08/20/24 20:40 Vital signs: Vital Signs Temperature 98.2 F 08/20/24 21:10 Pulse Rate 84 08/20/24 21:10 Respiratory Rate 17 08/20/24 21:10 Blood Pressure 125/75 08/20/24 21:10 Pulse Oximetry (%) 96 08/20/24 21:10 Oxygen Delivery Method Room Air 08/20/24 21:10 [facility] Narrative: Requesting Retana replacement. Reports Retana accidentally jerked out around 1930 this evening.
--- NOTE | 2024-08-20 22:07 | PD.EDMALE ---
ED Male Genitalurinary RME/HPI General Chief complaint: Urogenital-Male Stated complaint: Retana Catheter came out, bleeding x 30 min Time Seen by Provider: 08/20/24 20:40 Source: patient, family, RN notes reviewed and old records reviewed Arrival date/time: 08/20/24 20:37 Mode of arrival: ambulatory Limitations: no limitations RME / HPI RME / HPI Narrative: 79yom presents to ED requesting Retana replacement. Patient reports Retana was accidentally jerked out around 1930 this evening. No nausea/vomiting, abdominal pain or dysuria reported. Reports mild penile bleeding. 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 Related Data Home Medications ?Medication ?Instructions ?Recorded ?Confirmed metformin 500 mg tablet 1,000 mg PO BID 01/22/20 08/21/24 aspirin 81 mg capsule 81 mg PO DAILY 10/22/23 08/21/24 atorvastatin 40 mg tablet 40 mg PO QPM 10/22/23 08/21/24 carvedilol 3.125 mg tablet 3.125 mg PO BID 10/22/23 08/21/24 finasteride 5 mg tablet 5 mg PO QDAY 08/21/24 08/21/24 sacubitril 24 mg-valsartan 26 mg 1 tab PO BID 08/21/24 08/21/24 tablet (Entresto) sitagliptin phosphate 25 mg tablet 25 mg PO QDAY 08/21/24 08/21/24 (Januvia) tamsulosin 0.4 mg capsule 0.4 mg PO QHS 08/21/24 08/21/24 Previous Rx's ?Medication ?Instructions ?Recorded furosemide 40 mg tablet 40 mg PO QDAY #30 tabs 07/20/24 Allergies Allergy/AdvReac Type Severity Reaction Status Date / Time No Known Allergies Allergy Verified 08/21/24 11:21 Review of Systems Review of Systems Systems Reviewed: All systems reviewed, normal except as documented Gastrointestinal Gastrointestinal: Denies abdominal pain, Denies nausea and Denies vomiting Genitourinary Genitourinary: Denies dysuria Past Medical History Past Medical History CARDIAC: Positive Coronary Artery Disease, Hypercholesterolemia, Congestive Heart Failure and Hypertension GENITOURINARY: Positive Benign Prostatic Hyperplasia ENDOCRINE: Positive Diabetes Mellitus Type 2 Surgical History SURGICAL: Positive Coronary Stent and Pacemaker Social History SMOKING STATUS: Never smoker SUBSTANCE USE: does not use ALCOHOL: Never ED Exam General Limitations: Present no limitations General appearance: Present alert and in no apparent distress Head Head exam: Present atraumatic and normocephalic Eye Eye exam: Present normal appearance, PERRL and EOMI ENT ENT exam: Present normal exam and mucous membranes moist Neck Neck exam: Present normal inspection and full ROM Chest Chest inspection: Present normal inspection and symmetric chest wall rise Respiratory Respiratory exam: Present normal lung sounds bilaterally; Absent respiratory distress Cardiovascular Cardiovascular exam: Present regular rate and normal rhythm Abdominal Exam Abdominal exam: Present soft; Absent distention or tenderness Extremities Exam Extremities exam: Present normal inspection and full ROM Neurological Exam Neurological exam: Present alert and oriented X3 Psychiatric Psychiatric exam: Present normal affect and normal mood Skin Skin exam: Present warm, dry, intact and normal color Course Quality Measures none Orders Category Date Time Status Retana [Urinary Catheter] QS Care 08/20/24 21:26 Completed Vital Signs Vital signs: Vital Signs Temperature 98.2 F 08/20/24 21:10 Pulse Rate 84 08/20/24 21:10 Respiratory Rate 17 08/20/24 21:10 Blood Pressure 125/75 08/20/24 21:10 Pulse Oximetry (%) 96 08/20/24 21:10 Oxygen Delivery Method Room Air 08/20/24 21:10 Urogenital - Male MDM Narrative MDM Narrative:: ED requesting Retana replacement. Patient reports Retana was accidentally jerked out around 1930 this evening. No nausea/vomiting, abdominal pain or dysuria reported. Reports mild penile bleeding. 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 Retana replaced without difficulty, condition improved. Instructed to follow-up with urology as needed. Stable for discharge, RTED precautions given. Patient data External records reviewed:: [facility] previous records (Admit 07/15/2024 for acute respiratory failure) Clinical information provided by:: patient and spouse Social determinants that could affect healthcare access:: none Patient has the following chronic illnesses:: BPH How is presenting disease/condition affected by chronic disease/condition?: exacerbated by Evaluation data The following diagnostics were reviewed and interpreted by me:: other (specify) (None) Lab and/or radiology exams considered but not ordered:: UA: No dysuria Interpretation Summary: None Medications / Prescriptions Medications or Prescriptions considered but not ordered:: No antibiotics recommended at this time Medication administrations:: None Consultations Consultation(s) initiated? (list below): No Diagnosis Urogenital Male Differential Diagnosis: urinary tract infection, urethritis, acute retention of urine and other (Retana issue) Most likely diagnosis given after review of the tests above:: Retana replacement Admission Indicated Admission indicated?: not indicated Admission Request Was there a request for admission?: No Disposition Plan Disposition Plan: Discharge Discharge Attestation Discharge Attestation: The patient and all family members were given an opportunity to ask questions and understood the discharge instructions. Discharge instructions specifically effects, indications for sooner follow up or return to the emergency department, and the expected course of current diagnosis. Patient condition: Stable Discharge Plan Plan Patient Disposition: HOME (Self Care) Patient condition on transfer: Stable Prescriptions/Referrals Prescriptions/Med Rec: No Action Januvia 25 mg tablet 25 mg PO QDAY tamsulosin 0.4 mg capsule 0.4 mg PO QHS sacubitril-valsartan [Entresto] 24-26 mg tablet 1 tab PO BID finasteride 5 mg tablet 5 mg PO QDAY metformin 500 mg Tablet 1,000 mg PO BID Hold Instructions: Resume on 10/25/23. No se tome esta medicina hasta yanet Ramírez 10/25/2023. Rx Instructions: with meals atorvastatin 40 mg Tablet 40 mg PO QPM carvedilol 3.125 mg Tablet 3.125 mg PO BID Rx Instructions: with food aspirin 81 mg Capsule 81 mg PO DAILY furosemide 40 mg tablet 40 mg PO QDAY Qty: 30 0RF Referrals: Cheli([facility])Alexander NP [Primary Care Provider] - In 1 week Problem List Clinical Impression: Encounter for Retana catheter replacement Patient/Caregiver Discharge Instructions Education Materials: ED Retana Catheter, Care Print Language: Belarusian Stand Alone Forms: Cielo Award Info., Patient Portal Info Letter PA/SENIOR PROGRAM PLANNER Supervising Physician PA/SENIOR PROGRAM PLANNER Supervising Physician: Ramez
== END 2024-08-20 21:30 | disposition home or self-care (01) ==
PROVIDERS: Emergency Provider Emergency Medicine; PCP Nurse Practitioner Family
DX: Z46.6 Encounter for fitting and adjustment of urinary device (principal)
CPT/HCPCS: 51702; 99283

== ENCOUNTER → 2024-08-21 | Outpatient (BNVA) | payer OTHER, MEDICAID, SELFPAY | END | disposition home or self-care (01) | PROVIDERS: PCP Nurse Practitioner Family; Referring Provider Nurse Practitioner Family; Visit Provider Urology | DX: N40.1 Benign prostatic hyperplasia with lower urinary tract symptoms (principal); N13.8 Other obstructive and reflux uropathy; I11.0 Hypertensive heart disease with heart failure; I50.9 Heart failure, unspecified; I25.10 Atherosclerotic heart disease of native coronary artery without angina pectoris; K74.60 Unspecified cirrhosis of liver | CPT/HCPCS: 99212; G0463 ==

== ENCOUNTER → 2024-09-04 | Outpatient (CLI) | payer OTHER, MEDICAID, SELFPAY ==
[2024-09-04 11:18] LABS: Collection Type, Urine Clean Catch; Squamous Epithelial Cell,Urine 0 /hpf (0-5)
[2024-09-04 12:21] LABS: Basophils % (Auto) 0 % (0-2.5); Eosinophils # (Auto) 0.3 Thou/mm3 (0.0-0.5); Eosinophils % (Auto) 4 % (0-10); Hematocrit 37.8 % (41.0-53.0); Hemoglobin 12.6 g/dL (13.5-16.0); Immature Granulocytes % (Auto) 1 % (0-0); Immature Granulocytes Auto 0.03 Thou/mm3 (0.00-0.00); Lymphocytes # (Auto) 1.2 Thou/mm3 (1.0-4.8); Lymphocytes % (Auto) 18 % (10-50); Mean Corpuscular HGB Conc 33.3 g/dl (31.0-37.0); Mean Corpuscular Hemoglobin 31.7 pg (25.0-35.0); Mean Corpuscular Volume 95 fL (80-100); Monocytes # (Auto) 0.9 Thou/mm3 (0.0-0.8); Monocytes % (Auto) 14 % (0-12); Neutrophils % (Auto) 63 % (37-80); Nucleated Red Blood Cell % 0 /100 WBC (0); Platelet Count 277 Thou/mm3 (140-440); RDW Standard Deviation 49.1 fL (35.1-43.9); Red Blood Count 3.98 Miln/mm3 (4.50-5.90); White Blood Count 6.4 Thou/mm3 (3.8-10.6)
[2024-09-04 12:34] LABS: Glucose Estimated Average 194 mg/dL (80-131); Hemoglobin A1C 8.4 % Hgb (4.8-6.0)
[2024-09-04 12:37] LABS: Creatinine MALB Rnd Ur 52 mg/dL (30-125); Microalbumin, Random Urine 57 mg/L (0-300)
[2024-09-04 12:38] LABS: Microalbumin Creat Ratio 110 mg/gCrea (<30)
[2024-09-04 12:49] LABS: Alanine Aminotransferase 24 U/L (10-49); Albumin, Serum 4.8 gm/dL (3.4-4.8); Albumin/Globulin Ratio 1.4 (1.2-2.2); Alkaline Phosphatase 121 U/L (46-116); Anion Gap 13 (7-16); Aspartate Amino Transferase 24 U/L (0-34); BUN/Creatinine Ratio 24 Ratio (12-20); Bilirubin,Total 0.4 mg/dL (0.3-1.2); Blood Urea Nitrogen 19 mg/dL (9-23); Calcium 9.5 mg/dL (8.3-10.6); Calcium (Corrected) 9.5 mg/dL (8.5-10.1); Carbon Dioxide 26.1 mMol/L (20.0-31.0); Cardiac Risk Estimate 2.8 RATIO (4.0-6.7); Chloride 92 mMol/L (98-107); Cholesterol 160 mg/dL (132-200); Creatinine (Component) 0.8 mg/dL (0.6-1.3); Globulin 3.4 gm/dL (2.3-3.5); Glucose 127 mg/dL (74-106); HDL Cholesterol 58 mg/dL (40-60); LDL Cholesterol,Calculated 79 mg/dL (0-130); Osmolality,Calculated 266 (275-295); Potassium 4.6 mMol/L (3.4-5.1); Sodium 131 mMol/L (136-145); Total Protein 8.2 gm/dL (5.7-8.2); Triglycerides 115 mg/dL (30-150); eGFR > 60 See Note
[2024-09-04 13:04] LABS: Bilirubin,Urine Negative (Negative); Blood,Urine Negative (Negative); Budding Yeast,Urine Present; Clarity,Urine Turbid (Clear/Hazy); Color,Urine Yellow (Lt Yel-Yel); Glucose, Urine 4+ (Negative); Hyphae Yeast Present; Ketones,Urine 1+ (Negative); Leukocyte Esterase,Urine Positive (Negative); Nitrite,Urine Positive (Negative); PH,Urine 5.5 (5.0-7.0); Protein,Urine Trace (Neg - Trace); RBC,Urine 1 /hpf (0-3); Specific Gravity,Urine 1.028 (1.001-1.035); Urobilinogen,Urine Negative mg/dL (0.0-1.0); WBC,Urine 143 /hpf (0-5)
== END | disposition home or self-care (01) ==
PROVIDERS: Referring Provider Nurse Practitioner Family; Visit Provider Nurse Practitioner Family
DX: E11.65 Type 2 diabetes mellitus with hyperglycemia (principal)
CPT/HCPCS: 36415; 80053; 80061; 81001; 82043; 82570; 83036; 85025

== ENCOUNTER → 2024-09-08 | Outpatient (CLI) | payer OTHER, MEDICAID, SELFPAY ==
--- NOTE | 2024-09-08 16:12 | XR_ITS ---
Examination: PA lateral chest 2 views TECHNIQUE: Upright PA lateral chest 2 views Exam date and time: September 08, 2024 1615 hours INDICATIONS: Coughing difficulty breathing one week. FINDINGS: Normal heart size Cardiac leads satisfactory position No pneumonia or pulmonary edema Old right-sided rib fractures IMPRESSION: No pneumonia or pulmonary edema
== END | disposition home or self-care (01) ==
PROVIDERS: PCP Nurse Practitioner Family; Referring Provider Nurse Practitioner Family; Visit Provider Nurse Practitioner Family
DX: R05.9 Cough, unspecified (principal)
CPT/HCPCS: 71046

== ENCOUNTER 2024-09-15 04:00 | Emergency (ER) | payer OTHER, MEDICAID, SELFPAY ==
[2024-09-15 04:08] VITALS: PULSE 86; RESP 20; O2SAT 98; BMI 24.0
--- NOTE | 2024-09-15 04:10 | PD.EDSOB ---
ED SOB =RME/HPI General Chief Complaint: Shortness of Breath/Dyspnea Stated Complaint: SOB Time Seen by Provider: 09/15/24 04:10 Source: patient and EMS Arrival date/time: 09/15/24 04:00 Mode of arrival: EMS Limitations: no limitations RME / HPI RME / HPI Narrative: Dr. Doe?s Main ED Evaluation: 79-year-old male patient was brought to the Emergency Department (ED) by EMS with complaints of shortness of breath (SOB) and a cough that has persisted for 9 days. The symptoms worsened tonight. The patient's medical history includes diabetes mellitus (DM), hypertension (HTN), and hyperlipidemia (HLD). Upon EMS assessment, the patient was in normal sinus rhythm (NSR) on a 4-lead monitor. Albuterol treatment was administered en route to the hospital. Related Data Home Medications ?Medication ?Instructions ?Recorded ?Confirmed metformin 500 mg tablet 1,000 mg PO BID 01/22/20 08/21/24 aspirin 81 mg capsule 81 mg PO DAILY 10/22/23 08/21/24 atorvastatin 40 mg tablet 40 mg PO QPM 10/22/23 08/21/24 carvedilol 3.125 mg tablet 3.125 mg PO BID 10/22/23 08/21/24 finasteride 5 mg tablet 5 mg PO QDAY 08/21/24 08/21/24 sacubitril 24 mg-valsartan 26 mg 1 tab PO BID 08/21/24 08/21/24 tablet (Entresto) sitagliptin phosphate 25 mg tablet 25 mg PO QDAY 08/21/24 08/21/24 (Januvia) tamsulosin 0.4 mg capsule 0.4 mg PO QHS 08/21/24 08/21/24 Previous Rx's ?Medication ?Instructions ?Recorded furosemide 40 mg tablet 40 mg PO QDAY #30 tabs 07/20/24 albuterol sulfate 90 mcg/actuation 1 inh inhalation QID PRN shortness 09/15/24 aerosol inhaler of breath or wheezing #6.7 grams benzonatate 100 mg capsule 100 mg PO TID PRN cough #10 caps 09/15/24 doxycycline monohydrate 100 mg 100 mg PO BID #10 caps 09/15/24 capsule Allergies Allergy/AdvReac Type Severity Reaction Status Date / Time No Known Allergies Allergy Verified 09/23/24 20:40 Review of Systems Review of Systems Systems Reviewed: All systems reviewed, normal except as documented Past Medical History Past Medical History NEUROLOGIC: Negative Neurological Disorders or Seizures CARDIAC: Positive Cardiac Disorders, Coronary Artery Disease, Hypercholesterolemia, Congestive Heart Failure and Hypertension RESPIRATORY: Negative Chronic Obstructive Pulmonary Disease (COPD) or Asthma GASTROINTESTINAL: Negative Gastrointestinal Disorders GENITOURINARY: Positive Inguinal Hernia (Saurabh) and Benign Prostatic Hyperplasia; Negative Genitourinary Disorders or Renal Disease MUSCULOSKELETAL: Negative Musculoskeletal Disorders ENT: Positive Cataracts ENDOCRINE: Positive Endocrine Disorders and Diabetes Mellitus Type 2; Negative Diabetes Mellitus Type 1 HEMATOLOGIC: Negative Blood Disorders or Sickle Cell Disease OTHER HISTORY: Negative Autoimmune Disease, Blood Transfusions, Blood Transfusion Reaction, Anesthesia Reactions, Organ Transplant, MRSA, Clostridium Difficile or Cancer Family History FAMILY HISTORY: Positive Family Cardiac Disorders; Negative Family Psychiatric Problems, Family Respiratory Disorders, Family Gastrointestinal Problems, Family Surgery or Family Anesthesia Reaction Surgical History SURGICAL: Positive Coronary Stent and Pacemaker; Negative Vasectomy or Organ Transplant Social History SMOKING STATUS: Never smoker SECOND HAND EXPOSURE: No SUBSTANCE USE: does not use 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 ED Exam Narrative Physical exam: GENERAL: In general the patient is awake, interactive, in an emergency department gurney. HEAD/EYES/EARS/NOSE/THROAT: normo-cephalic, atraumatic, mucus membranes are moist. No cervical tenderness palpation midline. Supple neck. CARDIOVASCULAR: regular rate and regular rhythm, no murmurs, heart sounds are not distant, strong pulses in all four extremities that are equal and symmetric bilateral upper and lower extremities, normal capillary refill. CHEST/PULMONARY: normal chest rise and fall, good air movement, clear to auscultation bilaterally, normal inspiratory to expiratory ratios without evidence of respiratory distress. ABDOMEN: soft, not tender, no masses appreciated BACK: normal range of motion without pain. NEUROLOGICAL: cranio-facial features are symmetric, moves all four extremities equally without obvious limitations or weakness. EXTREMITY: no tenderness to palpation over the long bones or large joints of the bilateral upper and lower extremities, no joint swelling, no joint erythema, no signs of trauma, no unilateral leg swelling and no peripheral edema. SKIN: warm, dry, well-perfused, no jaundice, no rash, no telangiectasias or petechia. PSYCH: calm, cooperative, no evidence of psychosis or agitation General Limitations: Present no limitations Course Course Course Narrative: CXR is ordered for determining etiology of shortness of breath. Quality Measures none Orders Category Date Time Status EKG (ED ONLY) *Do not use* NOW Care 09/15/24 04:12 Completed CXRP [XR chest 1V portable] Stat Exams 09/15/24 04:12 Completed EKG (ED Only) Stat Exams 09/15/24 04:12 Draft BNP [B-Type Natriuretic Peptide] Stat Lab 09/15/24 06:02 Completed CBC Stat Lab 09/15/24 06:02 Completed CMP [Comprehensive Metabolic Panel] Stat Lab 09/15/24 06:02 Completed Troponin I Stat Lab 09/15/24 06:02 Completed Vital Signs Vital signs: Vital Signs Temperature 97.7 F 09/15/24 04:54 Pulse Rate 80 09/15/24 04:54 Respiratory Rate 17 09/15/24 04:54 Blood Pressure 109/66 09/15/24 04:54 Pulse Oximetry (%) 93 L 09/15/24 04:54 Oxygen Delivery Method Room Air 09/15/24 04:54 Procedures -ED EKG Interpretation #1: Additional EKG comment: I personally interpreted the EKG obtained on 09/15/24 at 05:08 shows normal sinus rhythm (NSR) with a heart rate of 78 bpm, no evidence of ST-elevation myocardial infarction (STEMI), and a QTc of 445 ms. Shortness of Breath / Dyspnea MDM Narrative MDM Narrative:: Differential diagnoses include congestive heart failure (CHF), pneumonia (PNA), myocardial infarction (TN), viral syndrome, COVID-19, and pleural effusion. 0600 [facility]. Past medical, surgical, social and family history reviewed. Vitals and home medications reviewed. Results and treatment plan discussed. They will assume the care of the patient at this time and will follow the patient, pending workup and final disposition. Scribe Attestation: I, Bart Mccoy, am scribing for and in the presence of Dr. Doe. Provider Notation: Although this document has been carefully reviewed, there may still be some phonetic and other typographical errors. These errors are purely grammatical due to imperfections in the software program and should not be construed in any way to compromise the substance of the patient's medical care during this visit. Patient data External records reviewed:: [facility] previous records Clinical information provided by:: patient Social determinants that could affect healthcare access:: none Patient has the following chronic illnesses:: see PMH How is presenting disease/condition affected by chronic disease/condition?: uneffected by Evaluation data The following diagnostics were reviewed and interpreted by me:: lab results, radiology exam(s) and EKG tracing(s) Lab and/or radiology exams considered but not ordered:: none Interpretation Summary: pending workup Medications / Prescriptions Medications or Prescriptions considered but not ordered:: none Medication administrations:: as above Consultations Consultation(s) initiated? (list below): No Diagnosis Shortness of Breath Differential Diagnosis: other (see narrative) Most likely diagnosis given after review of the tests above:: see clinical impression Admission Indicated Admission indicated?: not indicated Explain why admission is indicated or not indicated:: pending workup Admission Request Was there a request for admission?: No Disposition Plan Disposition Plan: other (specify) (Sign out to oncoming [facility] provider pending workup and final dispo) Discharge Plan Plan Patient Disposition: HOME (Self Care) Prescriptions/Referrals Prescriptions/Med Rec: New benzonatate 100 mg capsule 100 mg PO TID PRN (Reason: cough) Qty: 10 0RF doxycycline monohydrate 100 mg capsule 100 mg PO BID Qty: 10 0RF albuterol sulfate 90 mcg/actuation HFA aerosol inhaler 1 inh inhalation QID PRN (Reason: shortness of breath or wheezing) Qty: 6.7 0RF No Action Januvia 25 mg tablet 25 mg PO QDAY tamsulosin 0.4 mg capsule 0.4 mg PO QHS sacubitril-valsartan [Entresto] 24-26 mg tablet 1 tab PO BID finasteride 5 mg tablet 5 mg PO QDAY metformin 500 mg Tablet 1,000 mg PO BID Rx Instructions: with meals atorvastatin 40 mg Tablet 40 mg PO QPM carvedilol 3.125 mg Tablet 3.125 mg PO BID Rx Instructions: with food aspirin 81 mg Capsule 81 mg PO DAILY furosemide 40 mg tablet 40 mg PO QDAY Qty: 30 0RF Referrals: Cheli([facility])Alexander NP [Primary Care Provider] - In 1 week Problem List Clinical Impression: Acute bronchitis Patient/Caregiver Discharge Instructions Education Materials: ED Bronchitis with Wheezing (Adult) Additional Instructions: Kelsey un seguimiento con maldonado m?dico de atenci?n primaria en 3 a 5 d?as para volver a controlarlo. Puede regresar al departamento de emergencias [place] pronto luis los s?ntomas empeoren o si nota alg?n problema nuevo que le preocupe. Print Language: Martiniquais Stand Alone Forms: Cielo Award Info., Patient Portal Info Letter
--- NOTE | 2024-09-15 04:12 | EKG_ITS ---
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: : 1945 Requested By: Ciarra Leon Order Number: [id number] Reading MD: Ciarra Leon Measurements Intervals [place] Rate: 78 P: 95 RI: 157 QRS: 33 QRSD: 131 T: 124 QT: 391 QTc: 445 Interpretive Statements SINUS RHYTHM INTRAVENTRICULAR CONDUCTION DELAY [130+ ms QRS DURATION] LEFT VENTRICULAR HYPERTROPHY AND ST-T CHANGE [VOLTAGE CRITERIA PLUS ST/T ABNORMALITY] Compared to ECG 07/15/2024 08:34:09 Intraventricular conduction delay now present Left ventricular hypertrophy now present ST (T wave) deviation now present Sinus tachycardia no longer present Left bundle-branch block no longer present /store/S0/[id number].pdf
--- NOTE | 2024-09-15 04:12 | XR_ITS ---
Examination: PA chest single view TECHNIQUE: Upright PA chest single view. Exam date and time: September 15, 2024 0459 hours Comparison September 08, 2024 INDICATIONS: SOB today. FINDINGS: Normal heart size Cardiac leads satisfactory position. No lobar pneumonia or pulmonary edema. Multiple old right-sided rib fractures IMPRESSION: No pneumonia or pulmonary edema.
[2024-09-15 04:54] VITALS: BP 109/66; PULSE 80; RESP 17; TEMP 36.5; O2SAT 93
[2024-09-15 06:29] LABS: Basophils % (Auto) 0 % (0-2.5); Eosinophils % (Auto) 0 % (0-10); Hematocrit 36.9 % (41.0-53.0); Immature Granulocytes % (Auto) 1 % (0-0); Immature Granulocytes Auto 0.11 Thou/mm3 (0.00-0.00); Lymphocytes # (Auto) 1.4 Thou/mm3 (1.0-4.8); Lymphocytes % (Auto) 12 % (10-50); Mean Corpuscular HGB Conc 35.2 g/dl (31.0-37.0); Mean Corpuscular Hemoglobin 31.5 pg (25.0-35.0); Mean Corpuscular Volume 89 fL (80-100); Monocytes # (Auto) 0.9 Thou/mm3 (0.0-0.8); Monocytes % (Auto) 8 % (0-12); Neutrophils # (Auto) 8.9 Thou/mm3 (1.8-7.7); Neutrophils % (Auto) 79 % (37-80); Nucleated Red Blood Cell % 0 /100 WBC (0); Platelet Count 242 Thou/mm3 (140-440); RDW Standard Deviation 43.8 fL (35.1-43.9); Red Blood Count 4.13 Miln/mm3 (4.50-5.90); White Blood Count 11.3 Thou/mm3 (3.8-10.6)
[2024-09-15 06:56] LABS: Alanine Aminotransferase 17 U/L (10-49); Albumin, Serum 4.3 gm/dL (3.4-4.8); Albumin/Globulin Ratio 1.1 (1.2-2.2); Alkaline Phosphatase 95 U/L (46-116); Anion Gap 9 (7-16); Aspartate Amino Transferase 21 U/L (0-34); BUN/Creatinine Ratio 44 Ratio (12-20); Bilirubin,Total 0.6 mg/dL (0.3-1.2); Blood Urea Nitrogen 31 mg/dL (9-23); Carbon Dioxide 24.9 mMol/L (20.0-31.0); Chloride 101 mMol/L (98-107); Creatinine (Component) 0.7 mg/dL (0.6-1.3); Estimated Creatinine Clearance 72.8 mL/min (>60); Globulin 3.8 gm/dL (2.3-3.5); Glucose 175 mg/dL (74-106); Osmolality,Calculated 280 (275-295); Potassium 4.1 mMol/L (3.4-5.1); Sodium 135 mMol/L (136-145); Total Protein 8.1 gm/dL (5.7-8.2); Troponin I < 0.020 ng/mL (0.0-0.045); eGFR > 60 See Note
[2024-09-15 07:02] LABS: B-Type Natriuretic Peptide 506 pg/mL (0-100)
--- NOTE | 2024-09-15 11:09 | PD.EDSOB ---
ED SOB =RME/HPI General Chief Complaint: Shortness of Breath/Dyspnea Stated Complaint: SOB Time Seen by Provider: 09/15/24 04:10 Source: patient and EMS Arrival date/time: 09/15/24 04:00 Mode of arrival: EMS Limitations: no limitations RME / HPI RME / HPI Narrative: Dr. Doe?s Main ED Evaluation: 79-year-old male patient was brought to the Emergency Department (ED) by EMS with complaints of shortness of breath (SOB) and a cough that has persisted for 9 days. The symptoms worsened tonight. The patient's medical history includes diabetes mellitus (DM), hypertension (HTN), and hyperlipidemia (HLD). Upon EMS assessment, the patient was in normal sinus rhythm (NSR) on a 4-lead monitor. Albuterol treatment was administered en route to the hospital. DR. SMTIH MAIN ED EVALUATION 79 year old male with history of HFrEF 20-25% 06/2024, s/p permanent pacemaker placement, CAD s/p PCI, hypertension, diabetes presents to the ED for evaluation of cough producing white-yellow phlegm beginning 1 week ago. Accompanied by feeling short of breath, chills, and cold sweats. States last night the cough kept me up all night with no known modifying factors. Reportedly consulted with PCP in [place] several days ago who prescribed medication for his cough. However does not recall the name of the medication. Denies fevers or sick contacts. No other complaints reported. Related Data Home Medications ?Medication ?Instructions ?Recorded ?Confirmed metformin 500 mg tablet 1,000 mg PO BID 01/22/20 08/21/24 aspirin 81 mg capsule 81 mg PO DAILY 10/22/23 08/21/24 atorvastatin 40 mg tablet 40 mg PO QPM 10/22/23 08/21/24 carvedilol 3.125 mg tablet 3.125 mg PO BID 10/22/23 08/21/24 finasteride 5 mg tablet 5 mg PO QDAY 08/21/24 08/21/24 sacubitril 24 mg-valsartan 26 mg 1 tab PO BID 08/21/24 08/21/24 tablet (Entresto) sitagliptin phosphate 25 mg tablet 25 mg PO QDAY 08/21/24 08/21/24 (Januvia) tamsulosin 0.4 mg capsule 0.4 mg PO QHS 08/21/24 08/21/24 Previous Rx's ?Medication ?Instructions ?Recorded furosemide 40 mg tablet 40 mg PO QDAY #30 tabs 07/20/24 albuterol sulfate 90 mcg/actuation 1 inh inhalation QID PRN shortness 09/15/24 aerosol inhaler of breath or wheezing #6.7 grams benzonatate 100 mg capsule 100 mg PO TID PRN cough #10 caps 09/15/24 doxycycline monohydrate 100 mg 100 mg PO BID #10 caps 09/15/24 capsule Allergies Allergy/AdvReac Type Severity Reaction Status Date / Time No Known Allergies Allergy Verified 08/21/24 11:21 Review of Systems Review of Systems Narrative Review of Systems: Gen: No fever, no chills, no weight loss EYES: No discharge, no visual changes, no pain HEENT: No ear pain, no congestion, no sore throat PULM: + shortness of breath,+productive cough CV: No chest pain, no dyspnea on exertion, no palpitations, no chest tightness GI: No nausea, no vomiting, no diarrhea, no pain, no constipation : No frequency, no urgency,? no dysuria Musc/skel: No joint pain, no back pain Skin: No rash, no ecchymosis, no lesions Neuro: No weakness, no headache Past Medical History Past Medical History CARDIAC: Positive Cardiac Disorders, Coronary Artery Disease, Hypercholesterolemia, Congestive Heart Failure and Hypertension GENITOURINARY: Positive Inguinal Hernia (Saurabh) and Benign Prostatic Hyperplasia ENT: Positive Cataracts ENDOCRINE: Positive Endocrine Disorders and Diabetes Mellitus Type 2 Family History FAMILY HISTORY: Positive Family Cardiac Disorders Surgical History SURGICAL: Positive Coronary Stent and Pacemaker Social History SMOKING STATUS: Never smoker SECOND HAND EXPOSURE: No SUBSTANCE USE: does not use 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 ED Exam Narrative Physical exam: GENERAL APPEARANCE: AxOx4, nontoxic appearing HEENT: NC, AT. MMM. EOMI, clear conjunctiva, oropharynx clear. NECK: Supple without lymphadenopathy. No stiffness or restricted ROM. HEART: Normal rate and regular rhythm, normal S1/S1, no m/r/g LUNGS: Faint expiratory wheezing, diffuse rhonchi, coarse voice. No crackles are heard. ABDOMEN: Soft, nontender, nondistended with good bowel sounds heard. BACK: No midline C/T/L spine pain or deformity, No CVAT, no obvious deformity. EXTREMITIES: Without cyanosis, clubbing or edema. MUSCULOSKELETAL: FROM of all major joints, no chest tenderness NEUROLOGICAL: Grossly nonfocal. Alert and oriented, moving all 4 extremities. CN not formally tested but appear grossly intact. Skin: Warm and dry without any rash. General Limitations: Present no limitations Course Course Course Narrative: CXR is ordered for determining etiology of shortness of breath. Quality Measures none Orders Category Date Time Status EKG (ED ONLY) *Do not use* NOW Care 09/15/24 04:12 Completed CXRP [XR chest 1V portable] Stat Exams 09/15/24 04:12 Completed EKG (ED Only) Stat Exams 09/15/24 04:12 Draft BNP [B-Type Natriuretic Peptide] Stat Lab 09/15/24 06:02 Completed CBC Stat Lab 09/15/24 06:02 Completed CMP [Comprehensive Metabolic Panel] Stat Lab 09/15/24 06:02 Completed Troponin I Stat Lab 09/15/24 06:02 Completed Reevaluation(s) Reevaluation #1: Patient remains clinically stable throughout the emergency department visit. We reviewed all the results, analysis, and treatment plans. Patient is amenable to discharge. Strict return precautions were outlined. Patient was discharged in stable condition. Time: 10:40 Vital Signs Vital signs: Vital Signs Temperature 97.7 F 09/15/24 04:54 Pulse Rate 80 09/15/24 04:54 Respiratory Rate 17 09/15/24 04:54 Blood Pressure 109/66 09/15/24 04:54 Pulse Oximetry (%) 93 L 09/15/24 04:54 Oxygen Delivery Method Room Air 09/15/24 04:54 Pulse ox is 93% on room air which is adequate. Shortness of Breath / Dyspnea MDM Narrative MDM Narrative:: Kristine France am scribing for and in the presence of Dr. Smith. Patient data External records reviewed:: [facility] previous records (I reviewed ED visit on 08/20/2024) Clinical information provided by:: patient Social determinants that could affect healthcare access:: none Patient has the following chronic illnesses:: HFrEF 20-25% 06/2024, s/p permanent pacemaker placement, CAD s/p PCI, hypertension, diabetes How is presenting disease/condition affected by chronic disease/condition?: exacerbated by Evaluation data The following diagnostics were reviewed and interpreted by me:: lab results, radiology exam(s) and EKG tracing(s) (Sinus rhythm, rate 78, normal axis, normal interval, nonspecific T-wave changes, no STEMI. ) Lab and/or radiology exams considered but not ordered:: None Interpretation Summary: Ordering Physician: Ciarra Doe MD Date of Service: 09/15/24 Procedure(s): XR chest 1V portable Accession Number(s): [id number] cc: Josep Girard MD; Ciarra Doe MD; Cheli([facility])Alexander NP~ Examination: PA chest single view TECHNIQUE: Upright PA chest single view. Exam date and time: September 15, 2024 0459 hours Comparison September 08, 2024 INDICATIONS: SOB today. FINDINGS: Normal heart size Cardiac leads satisfactory position. No lobar pneumonia or pulmonary edema. Multiple old right-sided rib fractures IMPRESSION: No pneumonia or pulmonary edema. Dictated By:Josep Girard MD Signed By:<Electronically signed by Josep Girard MD in [place]>09/15/24 0717 Medications / Prescriptions Medications or Prescriptions considered but not ordered:: None Medication administrations:: None Consultations Consultation(s) initiated? (list below): No Diagnosis Shortness of Breath Differential Diagnosis: acute exacerbation of chronic obstructive airways disease, congestive heart failure, community acquired pneumonia, asthma with exacerbation and other (Viral illness) Most likely diagnosis given after review of the tests above:: Acute bronchitis Admission Indicated Admission indicated?: not indicated Admission Request Was there a request for admission?: No Disposition Plan Disposition Plan: Discharge Discharge Attestation Discharge Attestation: The patient and all family members were given an opportunity to ask questions and understood the discharge instructions. Discharge instructions specifically effects, indications for sooner follow up or return to the emergency department, and the expected course of current diagnosis. Patient condition: Stable Discharge Plan Plan Patient Disposition: HOME (Self Care) Prescriptions/Referrals Prescriptions/Med Rec: New benzonatate 100 mg capsule 100 mg PO TID PRN (Reason: cough) Qty: 10 0RF doxycycline monohydrate 100 mg capsule 100 mg PO BID Qty: 10 0RF albuterol sulfate 90 mcg/actuation HFA aerosol inhaler 1 inh inhalation QID PRN (Reason: shortness of breath or wheezing) Qty: 6.7 0RF No Action Januvia 25 mg tablet 25 mg PO QDAY tamsulosin 0.4 mg capsule 0.4 mg PO QHS sacubitril-valsartan [Entresto] 24-26 mg tablet 1 tab PO BID finasteride 5 mg tablet 5 mg PO QDAY metformin 500 mg Tablet 1,000 mg PO BID Rx Instructions: with meals atorvastatin 40 mg Tablet 40 mg PO QPM carvedilol 3.125 mg Tablet 3.125 mg PO BID Rx Instructions: with food aspirin 81 mg Capsule 81 mg PO DAILY furosemide 40 mg tablet 40 mg PO QDAY Qty: 30 0RF Referrals: Cheli([facility])Alexander NP [Primary Care Provider] - In 1 week Problem List Clinical Impression: Acute bronchitis Patient/Caregiver Discharge Instructions Education Materials: ED Bronchitis with Wheezing (Adult) Additional Instructions: Kelsey un seguimiento con maldonado m?dico de atenci?n primaria en 3 a 5 d?as para volver a controlarlo. Puede regresar al departamento de emergencias browning pronto luis los s?ntomas empeoren o si nota alg?n problema nuevo que le preocupe. Print Language: Azeri Stand Alone Forms: [employer] Award Info., Patient Portal Info Letter
== END 2024-09-15 11:16 | disposition home or self-care (01) ==
PROVIDERS: Emergency Medicine; Emergency Provider Emergency Medicine; PCP Nurse Practitioner Family
DX: J20.9 Acute bronchitis, unspecified (principal); E11.9 Type 2 diabetes mellitus without complications; E78.5 Hyperlipidemia, unspecified; I11.0 Hypertensive heart disease with heart failure; I50.22 Chronic systolic (congestive) heart failure; I25.10 Atherosclerotic heart disease of native coronary artery without angina pectoris; Z95.0 Presence of cardiac pacemaker; Z95.5 Presence of coronary angioplasty implant and graft
CPT/HCPCS: 36415; 71045; 80053; 83880; 84484; 85025; 93005; 99283

== ENCOUNTER 2024-09-23 20:35 | Emergency (ER) | payer OTHER, MEDICAID, SELFPAY ==
[2024-09-23 20:37] VITALS: PULSE 90; RESP 20; O2SAT 100
[2024-09-23 20:43] VITALS: BP 105/68; PULSE 89; RESP 19; TEMP 36.5; O2SAT 98; BMI 21.6
--- NOTE | 2024-09-23 21:42 | XR_ITS ---
Examination: PA lateral chest 2 views Technique: Upright PA lateral chest 2 views Exam date and time: September 22, 2024 2145 hrs. Indications: Chest pain coughing beginning 2 weeks ago. Findings: Normal heart size Cardiac leads satisfactory position Ectatic thoracic aorta No pneumonia or pulmonary edema Old right-sided rib fractures Impression: No pneumonia or pulmonary edema
--- NOTE | 2024-09-23 21:44 | PD.EDURI ---
Upper Respiratory Inf. RME/HPI General Chief Complaint: Flu Like Symptoms Stated Complaint: COUGH Time Seen by Provider: 09/23/24 21:41 Arrival date/time: 09/23/24 20:35 79 y/o M with PMHx of HFrEF 20%,s/p pacemaker, CAD s/p stents (October 2023), diabetes type 2, and CHF presents to ED with 2 weeks of cough and congestion. Limitations: no limitations Related Data Home Medications ?Medication ?Instructions ?Recorded ?Confirmed metformin 500 mg tablet 1,000 mg PO BID 01/22/20 08/21/24 aspirin 81 mg capsule 81 mg PO DAILY 10/22/23 08/21/24 atorvastatin 40 mg tablet 40 mg PO QPM 10/22/23 08/21/24 carvedilol 3.125 mg tablet 3.125 mg PO BID 10/22/23 08/21/24 finasteride 5 mg tablet 5 mg PO QDAY 08/21/24 08/21/24 sacubitril 24 mg-valsartan 26 mg 1 tab PO BID 08/21/24 08/21/24 tablet (Entresto) sitagliptin phosphate 25 mg tablet 25 mg PO QDAY 08/21/24 08/21/24 (Januvia) tamsulosin 0.4 mg capsule 0.4 mg PO QHS 08/21/24 08/21/24 Previous Rx's ?Medication ?Instructions ?Recorded furosemide 40 mg tablet 40 mg PO QDAY #30 tabs 07/20/24 albuterol sulfate 90 mcg/actuation 1 inh inhalation QID PRN shortness 09/15/24 aerosol inhaler of breath or wheezing #6.7 grams benzonatate 100 mg capsule 100 mg PO TID PRN cough #10 caps 09/15/24 doxycycline monohydrate 100 mg 100 mg PO BID #10 caps 09/15/24 capsule Allergies Allergy/AdvReac Type Severity Reaction Status Date / Time No Known Allergies Allergy Verified 09/23/24 20:40 Review of Systems Review of Systems Systems Reviewed: All systems reviewed, normal except as documented Constitutional Constitutional: Reports system reviewed and no additional complaints, except as documented, Denies fever(s) and Denies headache(s) ENT Ears, Nose, Mouth, and Throat: Reports as per HPI, Denies disequilibrium, Denies headache(s) and Reports nasal congestion Cardiovascular Cardiovascular: Reports system reviewed and no additional complaints, except as documented, Denies chest pain and Denies dyspnea Respiratory Respiratory: Reports system reviewed and no additional complaints, except as documented, Reports as per HPI, Reports cough and Denies dyspnea Gastrointestinal Gastrointestinal: Reports system reviewed and no additional complaints, except as documented, Denies abdominal pain, Denies nausea and Denies vomiting Neurologic Neurologic: Reports system reviewed and no additional complaints, except as documented, Denies confusion, Denies disequilibrium and Denies headache(s) Psychiatric Psychiatric: Denies confusion Past Medical History Past Medical History NEUROLOGIC: Negative Neurological Disorders or Seizures CARDIAC: Positive Cardiac Disorders, Coronary Artery Disease, Hypercholesterolemia, Congestive Heart Failure and Hypertension RESPIRATORY: Negative Chronic Obstructive Pulmonary Disease (COPD) or Asthma GASTROINTESTINAL: Negative Gastrointestinal Disorders GENITOURINARY: Positive Inguinal Hernia (Saurabh) and Benign Prostatic Hyperplasia; Negative Genitourinary Disorders or Renal Disease MUSCULOSKELETAL: Negative Musculoskeletal Disorders ENT: Positive Cataracts ENDOCRINE: Positive Endocrine Disorders and Diabetes Mellitus Type 2; Negative Diabetes Mellitus Type 1 HEMATOLOGIC: Negative Blood Disorders or Sickle Cell Disease OTHER HISTORY: Negative Autoimmune Disease, Blood Transfusions, Blood Transfusion Reaction, Anesthesia Reactions, Organ Transplant, MRSA, Clostridium Difficile or Cancer Family History FAMILY HISTORY: Positive Family Cardiac Disorders; Negative Family Psychiatric Problems, Family Respiratory Disorders, Family Gastrointestinal Problems, Family Surgery or Family Anesthesia Reaction Surgical History SURGICAL: Positive Coronary Stent and Pacemaker; Negative Vasectomy or Organ Transplant Social History SMOKING STATUS: Never smoker SECOND HAND EXPOSURE: No SUBSTANCE USE: does not use 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 ED Exam General Limitations: Present no limitations General appearance: Present alert and in no apparent distress Head Head exam: Present atraumatic Eye Eye exam: Present normal appearance, PERRL and EOMI ENT ENT exam: Present normal exam, normal oropharynx and mucous membranes moist Neck Neck exam: Present normal inspection, full ROM and trachea midline Chest Chest inspection: Present normal inspection and symmetric chest wall rise Respiratory Respiratory exam: Present normal lung sounds bilaterally Cardiovascular Cardiovascular exam: Present regular rate, normal rhythm and normal heart sounds Abdominal Exam Abdominal exam: Present soft and normal bowel sounds Extremities Exam Extremities exam: Present normal inspection and full ROM Back Exam Back exam: Present normal inspection and full ROM Neurological Exam Neurological exam: Present alert, oriented X3 and CN II-XII intact Psychiatric Psychiatric exam: Present normal affect and normal mood Skin Skin exam: Present warm, dry, intact and normal color Course Quality Measures none Orders Category Date Time Status XR chest 2V Stat Exams 09/23/24 21:42 Completed B-Type Natriuretic Peptide Stat Lab 09/23/24 22:19 Completed CBC Stat Lab 09/23/24 22:19 Completed Cocci Serology IgM with reflex to IgG [Cocci Serology, Lab 09/23/24 22:19 Received Unk History] Stat Comprehensive Metabolic Panel Stat Lab 09/23/24 22:19 Completed Troponin I Stat Lab 09/23/24 22:19 Completed Vital Signs Vital signs: Vital Signs Temperature 97.7 F 09/23/24 20:43 Pulse Rate 89 09/23/24 20:43 Respiratory Rate 19 09/23/24 20:43 Blood Pressure 105/68 09/23/24 20:43 Pulse Oximetry (%) 98 09/23/24 20:43 Oxygen Delivery Method Room Air 09/23/24 20:43 O2 at 98% on RA and WNLs Upper Respiratory Infection MDM Narrative MDM Narrative:: 79 y/o M with PMHx of HFrEF 20%,s/p pacemaker, CAD s/p stents (October 2023), diabetes type 2, and CHF presents to ED with 2 weeks of non-bloody cough and congestion. Physical exam reveals clear ENT and lungs. Patient is afebrile, calm, and alert. No extremity swelling. Normal WOB. CXR normal. No leukocytosis. Trop normal. BNP elevated, but less than so than previous visit 1 week ago. No physical exam finding of being wet. Patient has been adherent with outpatient meds including lasix. Symptoms likely due to comgestion. Patient data External records reviewed:: [facility] previous records Clinical information provided by:: patient Social determinants that could affect healthcare access:: none Patient has the following chronic illnesses:: HFrEF 20%,s/p pacemaker, CAD s/p stents (October 2023), diabetes type 2, and CHF How is presenting disease/condition affected by chronic disease/condition?: exacerbated by Evaluation data The following diagnostics were reviewed and interpreted by me:: lab results and radiology exam(s) Lab and/or radiology exams considered but not ordered:: ordered Interpretation Summary: above Medications / Prescriptions Medications or Prescriptions considered but not ordered:: not ordered Medication administrations:: n/a Consultations Consultation(s) initiated? (list below): No Diagnosis Upper Respiratory Differential Diagnosis: upper respiratory infection, croup, otitis media, sinusitis, viral infection, bronchitis, influenza, pharyngitis and other (CAP, chest congestion) Most likely diagnosis given after review of the tests above:: chest congestion Admission Indicated Admission indicated?: not indicated Admission Request Was there a request for admission?: No Disposition Plan Disposition Plan: Discharge Discharge Attestation Discharge Attestation: The patient and all family members were given an opportunity to ask questions and understood the discharge instructions. Discharge instructions specifically effects, indications for sooner follow up or return to the emergency department, and the expected course of current diagnosis. Patient condition: Stable Discharge Plan Plan Patient Disposition: HOME (Self Care) Disposition Comment: Stable Prescriptions/Referrals Prescriptions/Med Rec: No Action Januvia 25 mg tablet 25 mg PO QDAY tamsulosin 0.4 mg capsule 0.4 mg PO QHS sacubitril-valsartan [Entresto] 24-26 mg tablet 1 tab PO BID finasteride 5 mg tablet 5 mg PO QDAY metformin 500 mg Tablet 1,000 mg PO BID Rx Instructions: with meals atorvastatin 40 mg Tablet 40 mg PO QPM carvedilol 3.125 mg Tablet 3.125 mg PO BID Rx Instructions: with food aspirin 81 mg Capsule 81 mg PO DAILY furosemide 40 mg tablet 40 mg PO QDAY Qty: 30 0RF benzonatate 100 mg capsule 100 mg PO TID PRN (Reason: cough) Qty: 10 0RF doxycycline monohydrate 100 mg capsule 100 mg PO BID Qty: 10 0RF albuterol sulfate 90 mcg/actuation HFA aerosol inhaler 1 inh inhalation QID PRN (Reason: shortness of breath or wheezing) Qty: 6.7 0RF Problem List Clinical Impression: Chest congestion Patient/Caregiver Discharge Instructions Education Materials: ED Symptoms With Uncertain Cause Additional Instructions: Please follow-up with PCP within 24-48 hours and return immediately if symptoms worsen. Print Language: [place] Stand Alone Forms: Patient Portal Info Letter KRISTI/QUALITY CONTROL TECHNICIAN Supervising Physician KRISTI/SALENA Supervising Physician: Dr. Oakley
[2024-09-23 22:33] VITALS: BP 112/72; PULSE 82; RESP 18; TEMP 36.3; O2SAT 98
[2024-09-23 22:36] LABS: Basophils % (Auto) 0 % (0-2.5); Eosinophils # (Auto) 0.2 Thou/mm3 (0.0-0.5); Eosinophils % (Auto) 2 % (0-10); Hematocrit 36.2 % (41.0-53.0); Hemoglobin 12.7 g/dL (13.5-16.0); Immature Granulocytes % (Auto) 1 % (0-0); Immature Granulocytes Auto 0.05 Thou/mm3 (0.00-0.00); Lymphocytes % (Auto) 11 % (10-50); Mean Corpuscular HGB Conc 35.1 g/dl (31.0-37.0); Mean Corpuscular Hemoglobin 31.5 pg (25.0-35.0); Mean Corpuscular Volume 90 fL (80-100); Monocytes # (Auto) 0.8 Thou/mm3 (0.0-0.8); Monocytes % (Auto) 9 % (0-12); Neutrophils % (Auto) 77 % (37-80); Nucleated Red Blood Cell % 0 /100 WBC (0); Platelet Count 261 Thou/mm3 (140-440); RDW Standard Deviation 43.7 fL (35.1-43.9); Red Blood Count 4.03 Miln/mm3 (4.50-5.90)
[2024-09-23 22:58] LABS: Alanine Aminotransferase 15 U/L (10-49); Albumin, Serum 4.1 gm/dL (3.4-4.8); Albumin/Globulin Ratio 1.1 (1.2-2.2); Alkaline Phosphatase 134 U/L (46-116); Anion Gap 8 (7-16); Aspartate Amino Transferase 17 U/L (0-34); B-Type Natriuretic Peptide 508 pg/mL (0-100); BUN/Creatinine Ratio 29 Ratio (12-20); Bilirubin,Total 0.2 mg/dL (0.3-1.2); Blood Urea Nitrogen 23 mg/dL (9-23); Calcium 9.7 mg/dL (8.3-10.6); Calcium (Corrected) 9.7 mg/dL (8.5-10.1); Carbon Dioxide 23.9 mMol/L (20.0-31.0); Chloride 102 mMol/L (98-107); Creatinine (Component) 0.8 mg/dL (0.6-1.3); Estimated Creatinine Clearance 63.5 mL/min (>60); Globulin 3.7 gm/dL (2.3-3.5); Glucose 296 mg/dL (74-106); Osmolality,Calculated 282 (275-295); Potassium 3.8 mMol/L (3.4-5.1); Sodium 134 mMol/L (136-145); Total Protein 7.8 gm/dL (5.7-8.2); Troponin I < 0.020 ng/mL (0.0-0.045); eGFR > 60 See Note
[2024-09-24 13:47] LABS: Cocci Serology, IgM Negative (Negative)
[2024-09-25 13:01] LABS: Cocci Serology, IgG Negative (Negative)
== END 2024-09-23 23:18 | disposition home or self-care (01) ==
LOC: SERX 23:21
PROVIDERS: Physician Assistant; Emergency Provider Emergency Medicine; PCP Nurse Practitioner Family
DX: R09.89 Other specified symptoms and signs involving the circulatory and respiratory systems (principal)
CPT/HCPCS: 36415; 71046; 80053; 83880; 84484; 85025; 86331; 86635; 99283

== ENCOUNTER → 2024-11-03 | Outpatient (CLI) | payer MEDICARE, MEDICAID, SELFPAY ==
[2024-11-03 10:16] LABS: Basophils % (Auto) 1 % (0-2.5); Eosinophils # (Auto) 0.3 Thou/mm3 (0.0-0.5); Eosinophils % (Auto) 4 % (0-10); Hematocrit 33.4 % (41.0-53.0); Hemoglobin 11.5 g/dL (13.5-16.0); Immature Granulocytes % (Auto) 1 % (0-0); Immature Granulocytes Auto 0.05 Thou/mm3 (0.00-0.00); Lymphocytes # (Auto) 1.4 Thou/mm3 (1.0-4.8); Lymphocytes % (Auto) 17 % (10-50); Mean Corpuscular HGB Conc 34.4 g/dl (31.0-37.0); Mean Corpuscular Hemoglobin 31.3 pg (25.0-35.0); Mean Corpuscular Volume 91 fL (80-100); Monocytes # (Auto) 0.8 Thou/mm3 (0.0-0.8); Monocytes % (Auto) 10 % (0-12); Neutrophils # (Auto) 5.7 Thou/mm3 (1.8-7.7); Neutrophils % (Auto) 68 % (37-80); Nucleated Red Blood Cell % 0 /100 WBC (0); Platelet Count 244 Thou/mm3 (140-440); RDW Standard Deviation 52.6 fL (35.1-43.9); Red Blood Count 3.68 Miln/mm3 (4.50-5.90); White Blood Count 8.4 Thou/mm3 (3.8-10.6)
[2024-11-03 10:44] LABS: Parathyroid Hormone Intact 16.7 pg/ml (18.5-88.0)
[2024-11-03 10:46] LABS: Ferritin 194 ng/mL (10.5-307.3); Iron 63 mcg/dL (65-175); Percent Iron Saturation 22 % (20-55); Total Iron Binding Capacity 279 mcg/dL (250-425); Unsaturated Iron Binding 216 (225-295)
[2024-11-03 10:52] LABS: Alanine Aminotransferase 20 U/L (10-49); Albumin, Serum 3.8 gm/dL (3.4-4.8); Albumin/Globulin Ratio 1.4 (1.2-2.2); Alkaline Phosphatase 106 U/L (46-116); Anion Gap 9 (7-16); Aspartate Amino Transferase 29 U/L (0-34); BUN/Creatinine Ratio 52 Ratio (12-20); Bilirubin,Total 0.4 mg/dL (0.3-1.2); Blood Urea Nitrogen 26 mg/dL (9-23); Calcium 8.9 mg/dL (8.3-10.6); Calcium (Corrected) 9.1 mg/dL (8.5-10.1); Carbon Dioxide 24.3 mMol/L (20.0-31.0); Chloride 98 mMol/L (98-107); Cholesterol 151 mg/dL (132-200); Creatinine (Component) 0.5 mg/dL (0.6-1.3); Free T4 (Free Thyroxine) 1.28 ng/dL (0.89-1.76); Globulin 2.8 gm/dL (2.3-3.5); Glucose 116 mg/dL (74-106); HDL Cholesterol 51 mg/dL (40-60); LDL Cholesterol,Calculated 73 mg/dL (0-130); Osmolality,Calculated 268 (275-295); Phosphorous 3.4 mg/dL (2.4-5.1); Potassium 4.5 mMol/L (3.4-5.1); Sodium 131 mMol/L (136-145); Thyroid Stimulating Hormone 9.59 uIU/mL (0.55-4.78); Total Protein 6.6 gm/dL (5.7-8.2); Triglycerides 136 mg/dL (30-150); Uric Acid 3.2 mg/dL (3.7-9.2); eGFR > 60 See Note
[2024-11-03 11:01] LABS: Folate 15.78 ng/mL (>5.38); Vitamin B12 > 2000 pg/mL (211-911); Vitamin D 25 Hydroxy Total 55.2 ng/mL (7.3-40.2)
[2024-11-03 11:14] LABS: Glucose Estimated Average 189 mg/dL (80-131); Hemoglobin A1C 8.2 % Hgb (4.8-6.0)
[2024-11-03 11:45] LABS: Creatinine MALB Rnd Ur 40 mg/dL (30-125); Microalbumin, Random Urine < 3 mg/L (0-300)
== END | disposition home or self-care (01) ==
LOC: COPL 09:38
PROVIDERS: PCP Nurse Practitioner Family; Referring Provider Internal Medicine Nephrology; Visit Provider Internal Medicine Nephrology
DX: E03.9 Hypothyroidism, unspecified (principal); E11.22 Type 2 diabetes mellitus with diabetic chronic kidney disease; E21.3 Hyperparathyroidism, unspecified; E55.9 Vitamin D deficiency, unspecified; E78.5 Hyperlipidemia, unspecified; E79.89 Other specified disorders of purine and pyrimidine metabolism; E83.39 Other disorders of phosphorus metabolism; M10.30 Gout due to renal impairment, unspecified site; N04.9 Nephrotic syndrome with unspecified morphologic changes; N18.30 Chronic kidney disease, stage 3 unspecified
CPT/HCPCS: 36415; 80053; 80061; 82043; 82306; 82570; 82607; 82728; 82746; 83036; 83540; 83550; 83970; 84100; 84439; 84443; 84550; 85025

== ENCOUNTER → 2024-11-21 | Outpatient (BNVA) | payer MEDICARE, MEDICAID, SELFPAY | END | disposition home or self-care (01) | PROVIDERS: PCP Nurse Practitioner Family; Referring Provider Nurse Practitioner Family; Visit Provider Urology | DX: N40.1 Benign prostatic hyperplasia with lower urinary tract symptoms (principal); N13.8 Other obstructive and reflux uropathy; R33.8 Other retention of urine; R39.198 Other difficulties with micturition; I11.0 Hypertensive heart disease with heart failure; I50.9 Heart failure, unspecified; E11.9 Type 2 diabetes mellitus without complications; E78.00 Pure hypercholesterolemia, unspecified; I25.10 Atherosclerotic heart disease of native coronary artery without angina pectoris | CPT/HCPCS: 76872 ==

== ENCOUNTER → 2024-11-28 | Outpatient (BNVA) | payer MEDICARE, MEDICAID, SELFPAY | END | disposition home or self-care (01) | PROVIDERS: PCP Nurse Practitioner Family; Referring Provider Nurse Practitioner Family; Visit Provider Urology | DX: N40.1 Benign prostatic hyperplasia with lower urinary tract symptoms (principal); R35.0 Frequency of micturition; I11.0 Hypertensive heart disease with heart failure; I50.9 Heart failure, unspecified; K74.60 Unspecified cirrhosis of liver; E11.9 Type 2 diabetes mellitus without complications | CPT/HCPCS: 99212; G0463 ==

== ENCOUNTER → 2025-02-19 | Outpatient (BNVA) | payer OTHER, MEDICAID, SELFPAY | END | disposition home or self-care (01) | PROVIDERS: PCP Nurse Practitioner Family; Referring Provider Nurse Practitioner Family; Visit Provider Urology | DX: N40.1 Benign prostatic hyperplasia with lower urinary tract symptoms (principal); R39.12 Poor urinary stream; I10 Essential (primary) hypertension; E78.00 Pure hypercholesterolemia, unspecified; I25.10 Atherosclerotic heart disease of native coronary artery without angina pectoris; E11.9 Type 2 diabetes mellitus without complications | CPT/HCPCS: 51741; 51798 ==

== ENCOUNTER → 2025-02-23 | Outpatient (BNVA) | payer OTHER, MEDICAID, SELFPAY | END | disposition home or self-care (01) | PROVIDERS: PCP Nurse Practitioner Family; Referring Provider Nurse Practitioner Family; Visit Provider Urology | DX: N32.89 Other specified disorders of bladder (principal); N40.1 Benign prostatic hyperplasia with lower urinary tract symptoms; N13.8 Other obstructive and reflux uropathy | CPT/HCPCS: 52000; 81003; 96372; A4217; A4649; C1894; J1580; A9270 ==

== ENCOUNTER 2025-03-06 06:35 | Day surgery (SDC) | payer MEDICARE, MEDICAID, SELFPAY ==
[2025-03-05 13:21] LABS: Basophils # (Auto) 0.0 Thou/mm3 (0.0-0.2); Basophils % (Auto) 0 % (0-2.5); Eosinophils # (Auto) 0.2 Thou/mm3 (0.0-0.5); Eosinophils % (Auto) 2 % (0-10); Hematocrit 32.2 % (41.0-53.0); Hemoglobin 11.2 g/dL (13.5-16.0); Immature Granulocytes Auto 0.04 Thou/mm3 (0.00-0.00); Lymphocytes # (Auto) 1.3 Thou/mm3 (1.0-4.8); Lymphocytes % (Auto) 18 % (10-50); Mean Corpuscular HGB Conc 34.8 g/dl (31.0-37.0); Mean Corpuscular Hemoglobin 32.2 pg (25.0-35.0); Mean Corpuscular Volume 93 fL (80-100); Monocytes # (Auto) 0.8 Thou/mm3 (0.0-0.8); Monocytes % (Auto) 11 % (0-12); Neutrophils # (Auto) 5.0 Thou/mm3 (1.8-7.7); Neutrophils % (Auto) 68 % (37-80); Nucleated Red Blood Cell # 0.00 Thou/mm3 (0.00-0.00); Nucleated Red Blood Cell % 0 /100 WBC (0); Platelet Count 186 Thou/mm3 (140-440); RDW Standard Deviation 43.2 fL (35.1-43.9); Red Blood Count 3.48 Miln/mm3 (4.50-5.90); White Blood Count 7.2 Thou/mm3 (3.8-10.6)
[2025-03-05 13:27] LABS: INR 1.0 (0.9-1.3); Partial Thromboplastin Time 26.6 Seconds (22.0-36.0); Prothrombin Time 11.4 Seconds (9.0-12.2)
[2025-03-05 13:37] LABS: Anion Gap 9 (7-16); BUN/Creatinine Ratio 16 Ratio (12-20); Blood Urea Nitrogen 16 mg/dL (9-23); Calcium 9.0 mg/dL (8.3-10.6); Carbon Dioxide 24.3 mMol/L (20.0-31.0); Chloride 97 mMol/L (98-107); Creatinine (Component) 1.0 mg/dL (0.6-1.3); Glucose 323 mg/dL (74-106); Osmolality,Calculated 274 (275-295); Potassium 4.3 mMol/L (3.4-5.1); Sodium 130 mMol/L (136-145); eGFR > 60 See Note
--- NOTE | 2025-03-05 16:26 | EKG_ITS ---
[facility] Test Date: 2025-03-05 Pat Name: JOHN COOPER Department: Room: - Gender: Male Release Of Information Specialist: ENZO : 1945 Requested By: Reece Steel Order Number: [id number] Reading MD: Reece Steel Measurements Intervals [place] Rate: 75 P: 47 VT: 170 QRS: 2 QRSD: 129 T: 223 QT: 405 QTc: 453 Interpretive Statements SINUS RHYTHM WITH OCCASIONAL VENTRICULAR PREMATURE COMPLEXES MODERATE INTRAVENTRICULAR CONDUCTION DELAY [105+ ms QRS DURATION, 80+ ms Q/S IN V1/V2, NO Q AND 60+ ms R IN I/aVL/V5/V6] ST DEVIATION AND MODERATE T-WAVE ABNORMALITY, CONSIDER LATERAL ISCHEMIA [-0.1+ mV T WAVE IN I/aVL/V5/V6] ST DEVIATION AND MODERATE T-WAVE ABNORMALITY, CONSIDER INFERIOR ISCHEMIA [-0.1+ mV T WAVE IN II/aVF] Compared to ECG 09/15/2024 05:08:04 Ventricular premature complex(es) now present T-wave abnormality now present Possible ischemia now present Left ventricular hypertrophy no longer present ST (T wave) deviation no longer present /store/S0/[id number].pdf
[2025-03-06] VITALS (12 sets, daily range): BP systolic 94–121; BP diastolic 47–65; PULSE 71–81; RESP 16–20; TEMP 36.4–36.6; O2SAT 95–98; BMI 21.7
--- NOTE | 2025-03-06 07:27 | SUR.PREOP ---
Patient expressed gratitude for prayer before their procedure
--- NOTE | 2025-03-06 10:01 | ESOP_ITS ---
RE: JOHN COOPER : 1945 DATE OF OPERATION: 03/06/2025 PROCEDURES PERFORMED: 1. Diagnostic right and left heart cardiac catheterization, selective coronary angiogram, and left ventricular angiogram, CPT 94452. 2. Conscious sedation, 30-minute duration. 3. Ultrasonic guided access, right radial artery and right femoral vein. 4. TR band application. DIAGNOSES: Coronary artery disease, ischemic cardiomyopathy, chronic systolic heart failure, and abnormal nuclear stress test, referred for preoperative cardiac clearance for prostate surgery. HISTORY AND INDICATIONS: The patient is a 80-year-old male with a past medical history of ischemic heart disease, status post multivessel stent placement, ischemic cardiomyopathy, chronic systolic heart failure, ejection fraction 20%, had stent placed in the right coronary artery and LAD in the past. He was referred for preoperative cardiac clearance for prostate surgery. Preoperative nuclear stress test was abnormal. Hence, coronary angiogram was recommended to assess the patient has significant obstructive coronary artery disease and also assess right heart pressures before giving cardiac clearance and cardiac risk assessment for prostate surgery. DESCRIPTION OF PROCEDURE: The patient was brought to cardiac catheterization laboratory where he was given 1 mg Versed and 50 mcg of fentanyl for conscious sedation. The right radial approach was taken. The right radial artery was cannulated by micropuncture technique. Ultrasound guidance was used and documented and a 6-[place] Glidesheath was introduced. Radial cocktail was given consisting of 2000 units of heparin, verapamil 2.5 mg, and 200 mcg of nitroglycerin. Subsequently, the right femoral vein was cannulated by micropuncture technique. A 7-[place] Glidesheath was introduced. Right heart catheterization was performed by [place] catheter. Right heart pressures were measured. Left heart catheterization was performed by a 5-[place] TIG-4 diagnostic catheter and a left ventricular angiogram was performed. Pullback pressure was measured. Subsequently, selective right and left coronary angiogram was performed by TIG-4 5-[place] catheter. The patient tolerated the procedure well. No complications. Cardiac catheterization showed following findings: HEMODYNAMICS: Right atrial pressure is found to be 5 mmHg. Right ventricular pressure is 20/2 mmHg, right ventricular EDP 4 mmHg. Pulmonary artery pressure is 20/7 mmHg. Mean pulmonary artery pressure is 12 mmHg. Pulmonary artery wedge pressure is 10 mmHg. Left ventricular pressure is 89/2 mmHg, LVEDP 12 mmHg. Aortic pressure is 98/51 mmHg. Left ventricular angiogram showed severe global hypokinesis. Ejection fraction of 15-20%. Coronary angiogram showed the following findings: The right coronary artery is large and dominant, showed evidence of a stent in the proximal RCA, which is widely patent. No restenosis. The PDA and PL branches are normal. Left coronary system: The left main coronary is normal. The left anterior descending artery showed a stent in the proximal-mid segment, which is widely patent. The left circumflex artery is normal and small and nondominant. SUMMARY OF FINDINGS AND SUGGESTIONS: 1. Dilated cardiomyopathy, nonischemic, with widely patent coronary arteries and ejection fraction of 30%. 2. Widely patent stents in the RCA and left anterior descending artery. No restenosis. RECOMMENDATIONS: The patient is reassured that the heart failure is well compensated and coronary arteries are patent; however, the patient has severe LV dysfunction, ejection fraction of 20% that does put him at [id number] risk for prostate surgery. The patient can have prostate surgery with hemodynamic monitoring, high risk for him to go to volume overload and heart failure during pre- and postop as well as intraoperative period. The patient should not have any prolonged anesthesia or surgery. The surgery should be limited to under 1 hour, preferably 2-hour surgery. DT: 08:45:23 TT: 10:00:00 Ref: [id number] - TID: [id number]
== END 2025-03-06 11:00 | disposition home or self-care (01) ==
PROVIDERS: PCP Internal Medicine; Referring Provider Internal Medicine Cardiovascular Disease; Visit Provider Internal Medicine Cardiovascular Disease
PROC: (CPT 93460; principal; 2025-03-06 07:30)
DX: I25.10 Atherosclerotic heart disease of native coronary artery without angina pectoris (principal); I25.5 Ischemic cardiomyopathy; I50.22 Chronic systolic (congestive) heart failure; Z01.810 Encounter for preprocedural cardiovascular examination; Z95.5 Presence of coronary angioplasty implant and graft; E11.9 Type 2 diabetes mellitus without complications; Z95.810 Presence of automatic (implantable) cardiac defibrillator
CPT/HCPCS: 93460; 36415; 80048; 85025; 85610; 85730; 93005; 99152; A4649; C1769; C1887; C1894; J0168; J0461; J1643; J2250; J2310; J2371; J3010; J3490; Q9967

== ENCOUNTER → 2025-04-20 | Outpatient (CLI) | payer OTHER, SELFPAY ==
--- NOTE | 2025-04-20 | XR_ITS ---
Examination: PA lateral chest 2 views TECHNIQUE: Upright PA lateral chest 2 views Date and time: April 20, 2025, 16 p.m., comparison September 23, 2024 INDICATIONS: Shortness of breath beginning 2 months ago. FINDINGS: Normal heart size. Cardiac leads satisfactory position. No pneumonia or pulmonary edema. Old right-sided rib fractures IMPRESSION: No active disease.
== END | disposition home or self-care (01) ==
PROVIDERS: PCP Nurse Practitioner Family; Referring Provider Nurse Practitioner Family; Visit Provider Nurse Practitioner Family
DX: R06.02 Shortness of breath (principal)
CPT/HCPCS: 71046

== ENCOUNTER → 2025-05-27 | Outpatient (CLI) | payer MEDICARE, MEDICAID, SELFPAY ==
--- NOTE | 2025-05-27 14:46 | XR_ITS ---
EXAMINATION: Cervical spine 6 views TECHNIQUE: AP, lateral, RPO LPO, coned AP odontoid cervical spine 6 views Date and time: May 27, 2025, 1504 hours INDICATIONS: Neck pain beginning 2 months ago. FINDINGS: Adequate alignment cervical vertebral bodies. No cervical fracture. Moderate degenerative disc disease C5-C6, C6-C7 with moderate bilateral neuroforaminal stenosis at these levels The odontoid is intact IMPRESSION: Moderate degenerative disc disease C5-C6, C6-C7
--- NOTE | 2025-05-27 14:46 | XR_ITS ---
EXAMINATION: Lumbar spine 5 views TECHNIQUE: AP oblique RPO LPO, lateral, coned lateral lower lumbar spine 5 views Date and time: May 27, 2025, 1512 hours INDICATIONS: Lower back pain beginning 2 months ago. FINDINGS: Severe osteopenia Prominent lumbar spondylosis Grade 1 anterolisthesis L4 on L5 No lumbar fracture Diffuse moderate to advanced lumbar degenerative disc disease most severe at L5-S1 IMPRESSION: Diffuse moderate to advanced lumbar degenerative disc disease, most prominent at L5-S1
== END | disposition home or self-care (01) ==
LOC: CDIM 14:40
PROVIDERS: PCP Nurse Practitioner Family; Referring Provider Nurse Practitioner Family; Visit Provider Nurse Practitioner Family
DX: M50.322 Other cervical disc degeneration at C5-C6 level (principal); M51.360 Other intervertebral disc degeneration, lumbar region with discogenic back pain only; M51.370 Other intervertebral disc degeneration, lumbosacral region with discogenic back pain only
CPT/HCPCS: 72050; 72110

== ENCOUNTER → 2025-06-01 | Outpatient (BNVA) | payer MEDICARE, MEDICAID, SELFPAY | END | disposition home or self-care (01) | PROVIDERS: PCP Nurse Practitioner Family; Referring Provider Nurse Practitioner Family; Visit Provider Urology | DX: N40.1 Benign prostatic hyperplasia with lower urinary tract symptoms (principal); N13.8 Other obstructive and reflux uropathy; R33.8 Other retention of urine; R35.0 Frequency of micturition; N50.9 Disorder of male genital organs, unspecified; I11.0 Hypertensive heart disease with heart failure; I50.9 Heart failure, unspecified; I25.10 Atherosclerotic heart disease of native coronary artery without angina pectoris; K74.60 Unspecified cirrhosis of liver | CPT/HCPCS: 81003; 99212; G0463 ==

== ENCOUNTER → 2025-07-31 | Outpatient (CLI) | payer MEDICARE, MEDICAID, SELFPAY ==
[2025-07-31 10:08] LABS: Collection Type, Urine Clean Catch
[2025-07-31 10:15] LABS: Misc Send Out* See Sep Rpt
[2025-07-31 10:27] LABS: Basophils # (Auto) 0.0 Thou/mm3 (0.0-0.2); Basophils % (Auto) 0 % (0-2.5); Eosinophils # (Auto) 0.1 Thou/mm3 (0.0-0.5); Eosinophils % (Auto) 1 % (0-10); Hematocrit 34.1 % (41.0-53.0); Hemoglobin 11.6 g/dL (13.5-16.0); Immature Granulocytes Auto 0.12 Thou/mm3 (0.00-0.00); Lymphocytes # (Auto) 0.7 Thou/mm3 (1.0-4.8); Lymphocytes % (Auto) 9 % (10-50); Mean Corpuscular HGB Conc 34.0 g/dl (31.0-37.0); Mean Corpuscular Hemoglobin 32.5 pg (25.0-35.0); Mean Corpuscular Volume 96 fL (80-100); Monocytes # (Auto) 0.7 Thou/mm3 (0.0-0.8); Monocytes % (Auto) 8 % (0-12); Neutrophils # (Auto) 6.8 Thou/mm3 (1.8-7.7); Neutrophils % (Auto) 81 % (37-80); Nucleated Red Blood Cell # 0.00 Thou/mm3 (0.00-0.00); Nucleated Red Blood Cell % 0 /100 WBC (0); Platelet Count 200 Thou/mm3 (140-440); RDW Standard Deviation 48.5 fL (35.1-43.9); Red Blood Count 3.57 Miln/mm3 (4.50-5.90); White Blood Count 8.4 Thou/mm3 (3.8-10.6)
[2025-07-31 10:33] LABS: Bilirubin,Urine Negative (Negative); Blood,Urine 1+ (Negative); Budding Yeast,Urine Present; Color,Urine Yellow (Lt Yel-Yel); Glucose, Urine 4+ (Negative); Ketones,Urine Negative (Negative); Leukocyte Esterase,Urine Positive (Negative); Nitrite,Urine Negative (Negative); PH,Urine 6.0 (5.0-7.0); Protein,Urine 1+ (Neg - Trace); RBC,Urine 20 /hpf (0-3); Specific Gravity,Urine 1.017 (1.001-1.035); Squamous Epithelial Cell,Urine 5 /hpf (0-5); Urobilinogen,Urine Negative mg/dL (0.0-1.0); WBC,Urine 841 /hpf (0-5)
[2025-07-31 10:37] LABS: Glucose Estimated Average 140 mg/dL (80-131); Hemoglobin A1C 6.5 % Hgb (4.8-6.0)
[2025-07-31 10:50] LABS: Alanine Aminotransferase 29 U/L (10-49); Albumin, Serum 3.8 gm/dL (3.4-4.8); Albumin/Globulin Ratio 1.0 (1.2-2.2); Alkaline Phosphatase 113 U/L (46-116); Anion Gap 6 (7-16); Aspartate Amino Transferase 31 U/L (0-34); BUN/Creatinine Ratio 38 Ratio (12-20); Bilirubin,Total 0.2 mg/dL (0.3-1.2); Blood Urea Nitrogen 23 mg/dL (9-23); Calcium 8.2 mg/dL (8.3-10.6); Calcium (Corrected) 8.4 mg/dL (8.5-10.1); Carbon Dioxide 28.1 mMol/L (20.0-31.0); Cardiac Risk Estimate 2.8 RATIO (4.0-6.7); Chloride 102 mMol/L (98-107); Cholesterol 90 mg/dL (132-200); Creatinine (Component) 0.6 mg/dL (0.6-1.3); Globulin 3.9 gm/dL (2.3-3.5); Glucose 66 mg/dL (74-106); HDL Cholesterol 32 mg/dL (40-60); LDL Cholesterol,Calculated 43 mg/dL (0-130); Osmolality,Calculated 273 (275-295); Potassium 3.6 mMol/L (3.4-5.1); Sodium 136 mMol/L (136-145); Total Protein 7.7 gm/dL (5.7-8.2); Triglycerides 73 mg/dL (30-150); eGFR > 60 See Note
[2025-07-31 10:51] LABS: Creatinine MALB Rnd Ur 49 mg/dL (30-125); Microalbumin Creat Ratio 157 mg/gCrea (<30); Microalbumin, Random Urine 77 mg/L (0-300)
[2025-07-31 11:03] LABS: Clarity,Urine Hazy (Clear/Hazy)
[2025-08-04 07:06] LABS: A. alternata (M6) IgE <0.10 kU/L; A. fumigatus (M3) Class 0; A. fumigatus (M3) IgE <0.10 kU/L; Alder (T2) Class 0; Alder (T2) IgE <0.10 kU/L; Bermuda Grass (G2) Class 0; Bermuda Grass (G2) IgE <0.10 kU/L; Birch (T3) Class 0; Birch (T3) IgE <0.10 kU/L; C. herbarum (M2) Class 0; C. herbarum (M2) IgE <0.10 kU/L; Cat Dander (e1) Class 0; Cat Dander (e1) IgE <0.10 kU/L; Cockroach (I6) IgE <0.10 kU/L; Common Pigweed (W14) IgE <0.10 kU/L; Common Ragweed (W1) Class 0; Common Ragweed (W1) IgE <0.10 kU/L; D. farinae (D2) Class 0; D. farinae (D2) IgE <0.10 kU/L; D. pteronyssinus (D1) Class 0; D. pteronyssinus (D1) IgE <0.10 kU/L; Dog Dander (E5) IgE <0.10 kU/L; Elm (T8) IgE <0.10 kU/L; Mountain Cedar (T6) Class 0; Mountain Cedar (T6) IgE <0.10 kU/L; Mouse Ur Prot (E72) IgE <0.10 kU/L; Mugwort (W6) Class 0; Mugwort (W6) IgE <0.10 kU/L; Oak White (T7) Class 0; Oak White (T7) IgE <0.10 kU/L; Olive Tree (T9) Class 0; Olive Tree (T9) IgE <0.10 kU/L; P. notatum (M1) Class 0; P. notatum (M1) IgE <0.10 kU/L; Russian Thistle (W11) Class 0; Russian Thistle (W11) IgE <0.10 kU/L; Sycamore (T11) IgE <0.10 kU/L; Timothy Grass (G6) IgE <0.10 kU/L; White Mulberry (T70) IgE <0.10 kU/L
[2025-08-04 07:09] LABS: IgE, Serum* 199 kU/L (114 OR LESS)
[2025-08-04 07:10] LABS: A. alternata (M6) Class 0; Cockroach (I6) Class 0; Common Pigweed (W14) Class 0; Dog Dander (E5) Class 0; Elm (T8) Class 0; IgE, Total, Serum 197 kU/L (114 OR LESS); Mouse Ur Prot (E72) Class 0; Sycamore (T11) Class 0; Timothy Grass (G6) Class 0; White Mulberry (T70) Class 0
== END | disposition home or self-care (01) ==
LOC: COPL 09:25
PROVIDERS: PCP Nurse Practitioner Family; Referring Provider Nurse Practitioner Family; Visit Provider Nurse Practitioner Family
DX: E11.9 Type 2 diabetes mellitus without complications (principal); L20.9 Atopic dermatitis, unspecified
CPT/HCPCS: 36415; 80053; 80061; 81001; 82043; 82570; 82785; 83036; 85025; 86003